=== PATIENT | male | born 1960 | race African-American/Black ===

== ENCOUNTER 2022-12-20 17:25 | Inpatient (IN) | payer OTHER ==
--- OUTSIDE RECORDS SUMMARY | 2022-12-20 17:40 | XMS REPORT | Clinical Summary ---
:1960 Author Organization [facility] MD [facility] Address [address] [place] [address] Care Team Providers Name Role Phone Unavailable Primary Care Provider Unavailable Allergies No known active allergies Medications Medication Sig Dispensed Refills Start Date End Date Status lisinopril Take 10 mg by 0 Activ e (PRINIVIL,ZESTRIL) 10 mouth every mg tablet morning. Active Problems Problem Noted Date Diagnosed Date Migraine 10/16/2018 Hypertension 10/16/2018 Medical History Medical History Date Comments Hypertension Blind right eye Allergic rhinitis Family History Medical History Relation Name Comments -Unknown cancer Father Relation Name Status Comments Father Social History Tobacco Use Types Packs/Day Years Used Date Smoking Tobacco: Never Assessed Sex and Gender Information Value Date Recorded Sex Assigned at Not on file Gender Identity Not on file Sexual Orientation Not on file Obstetrics History Last Filed Vital Signs Not on file Plan of Treatment Not on file Results Not on fileafter 12/20/2021 Insurance Payer Benefit Plan Subscriber ID Effective Phone Address Typ e / Group Dates [place] [id number] 2018-Pre [phone] [facility] INDIGENT INDIGENT sent [address] [place] [phone] (Work) Pete Medrano Jr. Personal/Family Self 1960 [address] (Home) [place] [address] MarcelaPete . Personal/Family Self 1960 [address]) [place] [address]
--- OUTSIDE RECORDS SUMMARY | 2022-12-20 17:45 | XMS REPORT | Continuity of Care Document ---
:1960 Author Organization [facility] t Address [address] [facility] [address] [place] [address] Care Team Providers Name Role Phone UNKNOWN, REFFERING Primary Care Physician Unavailable VIKTOR SOSA Attending Clinician Unavailable VIKTOR SOSA Attending Clinician Unavailable BETTY WISE Attending Clinician Unavailable EKTA MEYER Attending Clinician Unavailable RAAD GUERRIER Attending Clinician Unavailable Raad Guerrier MD Attending Clinician WILVER GRIER Attending Clinician Unavailable Tin Ruiz MD Attending Clinician SUPRIYA NOGUERA Attending Clinician Unavailable OANH CONTRERAS Attending Clinician Unavailable VANESA ABRAMS Attending Clinician Unavailable FLOYD EPPERSON Attending Clinician Unavailable CHIP RAPHAEL Attending Clinician Unavailable SARAH LEONARD Attending Clinician Unavailable LAB90 Attending Clinician Unavailable 39, HOLTER Attending Clinician Unavailable LESLY TAVERAS Attending Clinician Unavailable ROXIE REESE Attending Clinician Unavailable RADIOLOGY Attending Clinician Unavailable Elliott Solomon MD Attending Clinician Henrique JOHNSON, Bruna La Attending Clinician Unavailable CASTRO ANTONIO Attending Clinician Unavailable Jose Henderson S Attending Clinician Castro Antonio MD Attending Clinician MARCEL BLANCO Attending Clinician Unavailable [place] Aponte Attending Clinician Doctor Unassigned, [place] Attending Clinician Unavailable 2, Adc Lab Attending Clinician Unavailable ELLIOTT SOLOMON Attending Clinician Unavailable GEORGES BOYKIN Attending Clinician Unavailable Team, [facility] Attending Clinician UnavailJEAN Shah Attending Clinician Unavailable TIN RUIZ Attending Clinician Unavailable JOSE MESSER Attending Clinician Unavailable Viktor Sosa MD Attending Clinician Gorge JOHNSON, Lucius Bah Attending Clinician Unavailable Only, [facility] Test Attending Clinician Unavailable Fab Leon MD Attending Clinician Lab, Ang - Db Attending Clinician Unavailable ANGEL BARNES Attending Clinician Unavailable Angel Barnes DO Attending Clinician ADRIANO BARTON Attending Clinician Unavailable Adriano Barton MD Attending Clinician Care, Igor Primary Attending Clinician Unavailable BOSTON PENNINGTON Attending Clinician Unavailable WILMAN WALKER Attending Clinician Unavailable Gely Tamez DO Attending Clinician Raine Manning RN Attending Clinician Unavailable FRANKIE JENNINGS Attending Clinician Unavailable FRANKIE JENNINGS Attending Clinician Unavailable Frankie Jennings MD Attending Clinician KIARA PAYNE Attending Clinician Unavailable JOSE MURRY Attending Clinician Unavailable GERDA DESIR Attending Clinician Danielle Edson Iqbal MD Attending Clinician Gerda Desir MD Attending Clinician Arnulfo Cline Attending Clinician [phone] Margaux Sawyer MD Attending Clinician Paulino Alanis Attending Clinician RADHA MILLER M.D., Gray GARCIA Attending Clinician Unavailable VIKTOR SOSA Admitting Clinician Unavailable CASTRO ANTONIO Admitting Clinician Unavailable Castro Antonio MD Admitting Clinician JOSE MESSER Admitting Clinician Unavailable Viktor Sosa MD Admitting Clinician ANGEL BARNES Admitting Clinician Unavailable FRANKIE JENNINGS Admitting Clinician Unavailable ARNULFO BRENNER Admitting Clinician Unavailable Arnulfo Cline Admitting Clinician [phone] Margaux Sawyer MD Admitting Clinician RADHA MILLER M.D., RADHA Admitting Clinician Unavail able Payers Payer Name Policy Type Policy Number Effective Date Expiration Date S artur [employer] [id number] 2020 00:00:00 [employer] PRIMARY [id number] 2020 CARE 00:00:00 MEDICAID SSI PENDING 2019 PENDING 00:00:00 AETNA MP CVS 9 [id number] 2022 SILVER: HMO DENTAL SPECIALIST 94 00:00:00 ON STAND [employer]ET[employer] COMMERCIAL [id number] 2022 OUT OF NETWORK 00:00:00 Problems Condition Condition Condition Status Onset Resolution Last Treating Co mments Source Name Details Category Date Date Treatment Clinician Date Well adult Well adult Disease Active 2022-02 K elsey exam exam 0-09 Seybold 00:00: - 00 Externa l Elevated Elevated Disease Active 2022-02 Kelse y PSA PSA 0-09 Seybold 00:00: - 00 Externa l BPH BPH Disease Active Suzanne (benign (benign 9-11 Seybold prostatic prostatic 00:00: - hyperplasi hyperplasi 00 Ex terna a) a) l Chronic Chronic Disease Active Suzanne back pain back pain 9-11 Seyb old 00:00: - 00 Externa l GERD GERD Disease Active Suzanne (gastroeso (gastroeso 9-11 Se ybold phageal phageal 00:00: - reflux reflux 00 Externa disease) disease) l Family Family Disease Active Suzanne history of history of 9 Se ybold prostate prostate 00:00: - cancer in cancer in 00 Exte rna father father l DJD DJD Disease Active Suzanne (degenerat (degenerat 9-11 Se ybold luca joint luca joint 00:00: - disease), disease), 00 Exte rna lumbar lumbar l DDD DDD Disease Active Suzanne (degenerat (degenerat 9-11 Se ybold luca disc luca disc 00:00: - disease), disease), 00 Exte rna lumbar lumbar l Allergic Allergic Disease Active Kelse y rhinitis rhinitis 10-21 Seybol d 00:00: - 00 Externa l History of History of Disease Active K elsey small small 10-21 Seybold bowel bowel 00:00: - obstructio obstructio 00 Ex terna n n l Erectile Erectile Disease Active Kelse y dysfunctio dysfunctio 10-21 Se ybold n n 00:00: - 00 Externa l History of History of Disease Active Overview : Suzanne kidney kidney 10-21 Formattin Seybold stones stones 00:00: g of this - 00 note Externa might be l different from the original. CT scan 04/29/2022 : Showed 6 mm nonobstru cting right nephrolit hiasis Abdominal Abdominal Disease Active Uni vers pain, pain, 3-02 ity [place] abdominal abdominal Bran ch location location History of History of Disease Active U nivers colon colon 3-02 ity of surgery surgery 00:00: [place] 00 Medical Branch GERD GERD Disease Active Univers (gastroeso (gastroeso 3-02 it y of phageal phageal 00:00: [place] reflux reflux 00 Medical disease) disease) Branch Primary Primary Disease Active Suzanne hypertensi hypertensi 2-28 Se ybold on on 00:00: - 00 Externa l Hyperlipid Hyperlipid Disease Active K elsey emia emia 04-09 Seybold 00:00: - 00 Externa l Hypertensi Hypertensi Disease Active K elsey on on 04-09 Seybold 00:00: - 00 Externa l Kidney Kidney Disease Active [facility] stones stones 10-20 st 00[facility]ospita 00 l Ectatic Ectatic Disease Active Overview: Meth joseluis abdominal abdominal 10-17 Formattin s t aorta aorta 00:00: g of this Hospita 00 note l might be different from the original. 10/17/2021: 2.7cm GERD GERD Disease Active [facility] (gastroeso (gastroeso 10-04 st phageal phageal 00:00: Hospita reflux reflux 00 l disease) disease) Seasonal Seasonal Disease Active Metho di allergies allergies 10-04 st 00:00: Hospita 00 l Colon Colon Disease Active 2020-02 Overview: Method i adenomas adenomas -[address] 00:00: g of this Hospita 00 note l might be different from the original. Formattin g of this note might be different from the original. Added automatic ally from request for surgery [id number] Esophageal Esophageal Disease Active 2020-02 Overview : [facility]i dysphagia dysphagia -10 Formattin s t 00:00: g of this Hospita 00 note l might be different from the original. Formattin g of this note might be different from the original. Added automatic ally from request for surgery [id number] Family Family Disease Active Univers history of history of 5-13 it y of prostate prostate 00:00: [place] cancer in cancer in 00 Medi zuly father father Branch dizziness dizziness Disease Active 2019-02 Uni vers 1-16 ity of 00:00: [place] [facility] Chest pain Chest pain Disease Active 2019-02 U nivers 0-23 ity of 00:00: [place] 00 Medical Branch Nocturia Nocturia Disease Active 2018-02 Unive rs 0-15 ity of 00:00: [place] [facility] Skin tag Skin tag Disease Active 2018-02 Unive rs of of 0-15 ity of perineum perineum 00:00: [place] in male in male 00 Medical Branch Perineal Perineal Disease Active 2018-02 Unive rs irritation irritation 0-15 it y of 00:00: [place] 00 Medical Branch Migraine Migraine Disease Active Unive rs 10-16 ity of 00:00: [place] 00 MD [facility] Hypertensi Hypertensi Disease Active U nivers on on 10-16 ity of 00:00: [place] 00 MD [facility] 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 08-18 eye eye 00:00: Hospita 00 l Seasonal Seasonal Disease Active Unive rs allergies allergies 07-28 ity of 00:00: [place] 00 Medical Branch Hypertensi Hypertensi Disease Active M ethodi on on 07-28 00:00: Hospita 00 l Small Small Disease Active Univers bowel bowel 07-14 ity of obstructio obstructio [place] [facility] Allergies, Adverse Reactions, Alerts Allergy Allergy Status Severity Reaction(s) Onset Inactive Treating Comm ents Source Name Type Date Date Clinician MORPHINE DRUG Active Other-Cmnt Univ ers SULFATE INGREDI 04-12 ity of 00:00: [place] 00 Medical Branch Morphine Propensi Active Other - See headache Univers Sulfate ty to comments 04-12 ity of adverse 00:00: [place] reaction 00 Medical s to Branch drug NO KNOWN Drug Active Univers ALLERGIE Class ity of S [facility] Family History Family Member Diagnosis Comments Start Date Stop Date Source Natural father Cancer [facility] Natural father Diabetes [facility] Natural father -Unknown cancer [facility] MD Stewart Garza r Mcandrews Social History Social Habit Start Date Stop Date Quantity Comments Source Sexual orientation [facility] MD William Cankameron r Mcandrews History of tobacco Cigarette Smoker Suzanne Tovar - use External Gender identity Suzanne borges - External History SDOH Suzanne lombardo - Alcohol Frequency Externa l History SDOH Suzanne lombardo - Alcohol Std Drinks [employer] Worker al History SDOH Suzanne lombardo - Alcohol Binge External Tobacco Comment 2022-09-20 2022-09-20 Smokes1/2 pack a Joel Tovar - 00:00:00 00:00:00 day. External Exposure to 2022-04-01 2022-04-11 Not sure [facility] SARS-CoV-2 (event) 00:00:00 15:50:00 [facility] Alcohol Comment 2022-04-09 2022-04-09 Occasionally - 1 Joel francisco La - 00:00:00 00:00:00 beer per week. External Alcohol intake 2021-10-20 2021-10-20 Current drinker of [facility] 00:00:00 00:00:00 alcohol (finding) Hospita l History of Social 2021-10-20 2021-10-[address] function 00:00:00 00:00:00 Hospital Tobacco use and 2021-10-04 2021-10-04 Smokeless tobacco [facility] exposure 00:00:00 00:00:00 non-user Hospital Cigarettes smoked 2020-06-22 2020-06-22 Univers ity of current (pack per 00:00:00 00:00:00 [facility] [place] ) - Reported [place] Cigarette 2020-06-22 2020-06-22 University of pack-years 00:00:00 00:00:00 [facility] Sex Ass[birth year] At [birth year] Universit y of 00:00:00 00:00:00 [place] MD [facility] Smoking Status Start Date Stop Date Source Smokes tobacco daily 2022-09-20 00:00:00 Suzanne Tovar - External Ex-smoker 2021-10-04 00:00:00 2021-10-04 00:00:00 [facility] Medications Ordered Filled Start Stop Current Ordering Indication Dosage Frequency Signature Comments Components Source Medication Medication Date Date Medication? Clinician (SIG) Name Name chlorproMAZ 2022-02 No 25mg 25 mg, Uni vers INE 1- 11-10 Oral, ONCE ity of (THORAZINE) 09:15: 08:38 NOW, 1 Joaquin as tablet 25 00 :00 dose, On Medica l mg [facility] 12/20/22 at 0315, ONUR maalox:diph 2022-02 No 15mL 15 mL, Uni vers enhydrAMINE - 11-10 Oral, ity of :lidocaine 07:11: 07:13 ONCE, 1 Joaquin as 2 % viscous 00 :00 dose, On Medi zuly 1:1:1 Fri Branch (FIRST-MOUT 12/20/22 [facility]) at 0115, oral ONUR suspension 15 mL omeprazole 2022-02- No 20mg Take 1 Univ ers 20 mg 1-10 11-10 capsule by ity of capsule 02:55: 00:00 mouth in [place] 48 :00 the Medical morning. Branch pantoprazol 2022-02 Yes [id number] 40mg Take 1 Univers e 1-10 tablet by ity of (PROTONIX) 00:00: mouth in [facility] as 40 mg EC 00 the Medical tablet morning. Branch ondansetron 2022-02 Yes [id number] 4mg Take 1 Univers (ZOFRAN) 4 1-10 tablet by ity of mg tablet 00:00: mouth [place] 00 every 8 Medical (eight) Branch hours as needed for Nausea and Vomiting (N/V). Tadalafil 2022-02- Yes [id number] 5mg QD Take 1 Suzanne (Cialis) 5 0-25 04-23 tablet (5 Sey bold MG oral 00:00: 04:59 mg total) - Tablet 00 :00 by mouth Externa daily as l needed for erectile dysfunctio n. Rosuvastati 2022-02 Yes 20mg TAKE 1 Lauren ey n Calcium 0-24 TABLET BY Seybo ld 20 MG oral 00:00: MOUTH - Tablet 00 EVERY DAY Externa l Rosuvastati 2022-02 Yes [id number] 20mg Take 1 Suzanne n Calcium 0-20 tablet (20 Seyb old (Crestor) 00:00: mg total) - 20 MG oral 00 by mouth Exter na Tablet nightly. l Loratadine 2022-02 Yes [id number] 10mg Take 1 K elsey (CLARITIN) 0-20 tablet (10 Sey bold 10 MG oral 00:00: mg total) - tablet 00 by mouth Externa daily. l Acetaminoph 2022-02- Yes [id number] 650mg Q.[id number] Take 1 Suzanne en (Tylenol 0-17 11-17 [id number] tablet Seybold 8 Hour) 650 00:00: 05:59 3D (650 mg - MG oral Tab 00 :00 total) by Ext chinyere CR mouth l every 8 hours as needed for pain. Acetaminoph 2022-02- Yes [id number] 650mg Q.[id number] Take 1 Suzanne en (Tylenol 0-17 11-17 [id number] tablet Seybold 8 Hour) 650 00:00: 05:59 3D (650 mg - MG oral Tab 00 :00 total) by Ext chinyere CR mouth l every 8 hours as needed for pain. Promethazin Yes [id number] 5mL Q.25D Take 5 mL Suzanne e-DM 9-20 by mouth 4 Seybold 6.25-15 00:00: times - MG/5ML oral 00 daily as Exte rna Syrup needed for l cough. Guaifenesin Yes [id number] 1200mg Take 2 Suzanne (Mucinex) 9-20 tablets Seybold 600 MG oral 00:00: (1,200 mg - Tablet 12 00 total) by Exter na Hour mouth 2 l Sustained times Release daily. Promethazin Yes [id number] 5mL Q.25D Take 5 mL Suzanne e-DM 9-20 by mouth 4 Seybold 6.25-15 00:00: times - MG/5ML oral 00 daily as Exte rna Syrup needed for l cough. Guaifenesin Yes [id number] 1200mg Take 2 Suzanne (Mucinex) 9-20 tablets Seybold 600 MG oral 00:00: (1,200 mg - Tablet 12 00 total) by Exter na Hour mouth 2 l Sustained times Release daily. Promethazin Yes [id number] 5mL Q.25D Take 5 mL Suzanne e-DM 9-20 by mouth 4 Seybold 6.25-15 00:00: times - MG/5ML oral 00 daily as Exte rna Syrup needed for l cough. Guaifenesin Yes [id number] 1200mg Take 2 Suzanne (Mucinex) 9-20 tablets Seybold 600 MG oral 00:00: (1,200 mg - Tablet 12 00 total) by Exter na Hour mouth 2 l Sustained times Release daily. Promethazin Yes [id number] 5mL Q.25D Take 5 mL Suzanne e-DM 9-20 by mouth 4 Seybold 6.25-15 00:00: times - MG/5ML oral 00 daily as Exte rna Syrup needed for l cough. Guaifenesin 2022-0 Yes [id number] 1200mg Take 2 Suzanne (Mucinex) 9-20 tablets Seybold 600 MG oral 00:00: (1,200 mg - Tablet 12 00 total) by Exter na Hour mouth 2 l Sustained times Release daily. Azithromyci 2022-0 2022- No [id number] Take 2 Suzanne n 250 MG 9-20 - tablets by Seyb old oral Tablet 00:00: 00:00 mouth on - 00 :00 day 1 then Externa 1 tablet l by mouth daily for 4 days thereafter .. Azithromyci 2022-0 2022- Yes [id number] Take 2 Suzanne n 250 MG 9-20 - tablets by Seyb old oral Tablet 00:00: 04:59 mouth on 00 :00 day 1 then Externa 1 tablet l by mouth daily for 4 days thereafter .. Azithromyci 2022-0 2022- Yes [id number] Take 2 Suzanne n 250 MG 9-20 - tablets by Seyb old oral Tablet 00:00: 04:59 mouth on - 00 : day 1 then Externa 1 tablet l by mouth daily for 4 days thereafter .. Omeprazole 2022-0 2022- No 20mg Take 1 Lauren ey 20 MG oral -12 19- capsule Seybo ld Delayed 14:21: 00:00 (20 mg - Release 21 :00 total) by Externa Capsule mouth l daily. HYDROcodone 2022-0 Yes [id number] 1{tbl} QD Take 1 Suzanne -Acetaminop 9-11 tablet by Vkias xiao hen 10-325 00:00: mouth - MG oral 00 daily as Externa Tablet needed. l HYDROcodone 2022-0 Yes [id number] 1{tbl} QD Take 1 Suzanne -Acetaminop 9-11 tablet by Vikas xiao hen 10-325 00:00: mouth - MG oral 00 daily as Externa Tablet needed. l HYDROcodone 2022-0 Yes [id number] 1{tbl} QD Take 1 Suzanne -Acetaminop 9-11 tablet by Vikas xiao hen 10-325 00:00: mouth - MG oral 00 daily as Externa Tablet needed. l HYDROcodone 2022-0 Yes [id number] 1{tbl} QD Take 1 Suzanne -Acetaminop 9-11 tablet by Vikas xiao hen 10-325 00:00: mouth - MG oral 00 daily as Externa Tablet needed. l HYDROcodone 2023-0 Yes [id number] 1{tbl} QD Take 1 Suzanne -Acetaminop 9-11 tablet by Vikas xiao hen 10-325 00:00: mouth - MG oral 00 daily as Externa Tablet needed. l HYDROcodone 2023-0 Yes [id number] 1{tbl} QD Take 1 Suzanne -Acetaminop 9-11 tablet by Vikas xiao hen 10-325 00:00: mouth - MG oral 00 daily as Externa Tablet needed. l Amlodipine 2023-0 Yes 5mg Take 1 Kelse y Besylate 8-19 tablet (5 Seybol d (NORVASC) 5 00:00: mg total) - MG oral 00 by mouth Externa Tablet daily. l Amlodipine 2023-0 Yes 5mg Take 1 Kelse y Besylate 8-19 tablet (5 Seybol d (NORVASC) 5 00:00: mg total) - MG oral 00 by mouth Externa Tablet daily. l Amlodipine 2023-0 Yes 5mg Take 1 Kelse y Besylate 8-19 tablet (5 Seybol d (NORVASC) 5 00:00: mg total) - MG oral 00 by mouth Externa Tablet daily. l Amlodipine 2023-0 Yes 5mg Take 1 Kelse y Besylate 8-19 tablet (5 Seybol d (NORVASC) 5 00:00: mg total) - MG oral 00 by mouth Externa Tablet daily. l Amlodipine 2023-0 Yes 5mg Take 1 Kelse y Besylate 8-19 tablet (5 Seybol d (NORVASC) 5 00:00: mg total) - MG oral 00 by mouth Externa Tablet daily. l Amlodipine 2023-0 Yes 5mg Take 1 Kelse y Besylate 8-19 tablet (5 Seybol d (NORVASC) 5 00:00: mg total) - MG oral 00 by mouth Externa Tablet daily. l Tadalafil 2023-0 Yes 20mg Take 1 Suzanne 20 MG oral 8-11 tablet (20 Sey bold Tablet 00:00: mg total) - 00 by mouth Externa as needed l Rosuvastati 2023-0 Yes 20mg Take 1 Lauren ey n Calcium 8-11 tablet (20 Seyb old (Crestor) 00:00: mg total) - 20 MG oral 00 by mouth Exter na Tablet daily l BuPROPion 3-0 Yes 150mg Take 1 Kelse y HCl, 8-11 tablet Seybold Smoking 00:00: (150 mg - Deter, 150 00 total) by Exte rna MG oral mouth 2 l Tablet 12 times Hour daily Sustained Release Aspirin 81 3-0 Yes 81mg Take 1 Kelse y MG oral 8-11 tablet (81 Seybol d Tablet 00:00: mg total) - Delayed 00 by mouth Externa Response daily l Pantoprazol 3-0 Yes [id number] 20mg Take 1 Suzanne e Sodium 20 8-11 tablet (20 Se ybold MG oral 00:00: mg total) - Tablet 00 by mouth Externa Delayed daily l Response Gabapentin 3-0 Yes 300mg Take 1 Lauren ey 300 MG oral 8-11 capsule Seybo ld Capsule 00:00: (300 mg - 00 total) by Externa mouth l daily Tadalafil 3-0 Yes 20mg Take 1 Suzanne 20 MG oral 8-11 tablet (20 Sey bold Tablet 00:00: mg total) - 00 by mouth Externa as needed l Rosuvastati 3-0 Yes 20mg Take 1 Lauren ey n Calcium 8-11 tablet (20 Seyb old (Crestor) 00:00: mg total) - 20 MG oral 00 by mouth Exter na Tablet daily l BuPROPion 3-0 Yes 150mg Take 1 Kelse y HCl, 8-11 tablet Seybold Smoking 00:00: (150 mg - Deter, 150 00 total) by Exte rna MG oral mouth 2 l Tablet 12 times Hour daily Sustained Release Aspirin 81 3-0 Yes 81mg Take 1 Kelse y MG oral 8-11 tablet (81 Seybol d Tablet 00:00: mg total) - Delayed 00 by mouth Externa Response daily l Pantoprazol 2023-0 Yes [id number] 20mg Take 1 Suzanne e Sodium 20 8-11 tablet (20 Se ybold MG oral 00:00: mg total) - Tablet 00 by mouth Externa Delayed daily l Response Gabapentin 3-0 Yes 300mg Take 1 Lauren ey 300 MG oral 8-11 capsule Seybo ld Capsule 00:00: (300 mg - 00 total) by Externa mouth l daily Tadalafil 2023-0 Yes 20mg Take 1 Suzanne 20 MG oral 8-11 tablet (20 Sey bold Tablet 00:00: mg total) - 00 by mouth Externa as needed l Rosuvastati 2023-0 Yes 20mg Take 1 Lauren ey n Calcium 8-11 tablet (20 Seyb old (Crestor) 00:00: mg total) - 20 MG oral 00 by mouth Exter na Tablet daily l BuPROPion 2023-0 Yes 150mg Take 1 Kelse y HCl, 8-11 tablet Seybold Smoking 00:00: (150 mg - Deter, 150 00 total) by Exte rna MG oral mouth 2 l Tablet 12 times Hour daily Sustained Release Aspirin 81 3-0 Yes 81mg Take 1 Kelse y MG oral 8-11 tablet (81 Seybol d Tablet 00:00: mg total) - Delayed 00 by mouth Externa Response daily l Pantoprazol 2023-0 Yes [id number] 20mg Take 1 Suzanne e Sodium 20 8-11 tablet (20 Se ybold MG oral 00:00: mg total) - Tablet 00 by mouth Externa Delayed daily l Response Gabapentin 3-0 Yes 300mg Take 1 Lauren ey 300 MG oral 8-11 capsule Seybo ld Capsule 00:00: (300 mg - 00 total) by Externa mouth l daily Tadalafil 2023-0 Yes 20mg Take 1 Suzanne 20 MG oral 8-11 tablet (20 Sey bold Tablet 00:00: mg total) - 00 by mouth Externa as needed l Rosuvastati 2023-0 Yes 20mg Take 1 Lauren ey n Calcium 8-11 tablet (20 Seyb old (Crestor) 00:00: mg total) - 20 MG oral 00 by mouth Exter na Tablet daily l BuPROPion 2023-0 Yes 150mg Take 1 Kelse y HCl, 8-11 tablet Seybold Smoking 00:00: (150 mg - Deter, 150 00 total) by Exte rna MG oral mouth 2 l Tablet 12 times Hour daily Sustained Release Aspirin 81 2023-0 Yes 81mg Take 1 Kelse y MG oral 8-11 tablet (81 Seybol d Tablet 00:00: mg total) - Delayed 00 by mouth Externa Response daily l Pantoprazol 2022-0 Yes [id number] 20mg Take 1 Suzanne e Sodium 20 8-11 tablet (20 Se ybold MG oral 00:00: mg total) - Tablet 00 by mouth Externa Delayed daily l Response Gabapentin 2022-0 Yes 300mg Take 1 Lauren ey 300 MG oral 8-11 capsule Seybo ld Capsule 00:00: (300 mg - 00 total) by Externa mouth l daily Tadalafil 2022-0 Yes 20mg Take 1 Suzanne 20 MG oral 8-11 tablet (20 Sey bold Tablet 00:00: mg total) - 00 by mouth Externa as needed l Aspirin 81 2022-0 Yes 81mg Take 1 Kelse y MG oral 8-11 tablet (81 Seybol d Tablet 00:00: mg total) - Delayed 00 by mouth Externa Response daily l Pantoprazol 2022-0 Yes [id number] 20mg Take 1 Suzanne e Sodium 20 8-11 tablet (20 Se ybold MG oral 00:00: mg total) - Tablet 00 by mouth Externa Delayed daily l Response Gabapentin 2022-0 Yes 300mg Take 1 Lauren ey 300 MG oral 8-11 capsule Seybo ld Capsule 00:00: (300 mg - 00 total) by Externa mouth l daily Rosuvastati 2022-0 Yes 20mg Take 1 Lauren ey n Calcium 8-11 tablet (20 Seyb old (Crestor) 00:00: mg total) - 20 MG oral 00 by mouth Exter na Tablet daily l BuPROPion 2022-0 Yes 150mg Take 1 Kelse y HCl, 8-11 tablet Seybold Smoking 00:00: (150 mg - Deter, 150 00 total) by Exte rna MG oral mouth 2 l Tablet 12 times Hour daily Sustained Release Aspirin 81 2022-0 Yes 81mg Take 1 Kelse y MG oral 8-11 tablet (81 Seybol d Tablet 00:00: mg total) - Delayed 00 by mouth Externa Response daily l Pantoprazol 2022-0 Yes [id number] 20mg Take 1 Suzanne e Sodium 20 8-11 tablet (20 Se ybold MG oral 00:00: mg total) - Tablet 00 by mouth Externa Delayed daily l Response Gabapentin 2022-0 Yes 300mg Take 1 Lauren ey 300 MG oral 8-11 capsule Seybo ld Capsule 00:00: (300 mg - 00 total) by Externa mouth l daily Tadalafil 3-0 3- No 20mg Take 1 Kelse y 20 MG oral 09-20 10-25 tablet (20 Se ybold Tablet 00:00: 00:00 mg total) - 00 :00 by mouth Externa as needed l BUPROPION 3-0 2023- No 150mg Take 1 Lauren ey HCL SR 150 09-20 tablet Seybol d MG OR TB12 00:00: 00:00 (150 mg - 00 :00 total) by Externa mouth 2 l times daily. Cyclobenzap 2023-0 Yes 10mg Take 1 Lauren ey rine HCl 10 7-21 tablet (10 Se ybold MG oral 00:00: mg total) - Tablet 00 by mouth 2 Externa times l daily. diazePAM 5 3-0 Yes 5mg Take 1 Kelse y MG oral 7-21 tablet (5 Seybold Tablet 00:00: mg total) - 00 by mouth Externa as needed. l Cyclobenzap 2023-0 Yes 10mg Take 1 Lauren ey rine HCl 10 7-21 tablet (10 Se ybold MG oral 00:00: mg total) - Tablet 00 by mouth 2 Externa times l daily. diazePAM 5 3-0 Yes 5mg Take 1 Kelse y MG oral 7-21 tablet (5 Seybold Tablet 00:00: mg total) - 00 by mouth Externa as needed. l Cyclobenzap 2023-0 Yes 10mg Take 1 Lauren ey rine HCl 10 7-21 tablet (10 Se ybold MG oral 00:00: mg total) - Tablet 00 by mouth 2 Externa times l daily. diazePAM 5 3-0 Yes 5mg Take 1 Kelse y MG oral 7-21 tablet (5 Seybold Tablet 00:00: mg total) - 00 by mouth Externa as needed. l Cyclobenzap 2023-0 Yes 10mg Take 1 Lauren ey rine HCl 10 7-21 tablet (10 Se ybold MG oral 00:00: mg total) - Tablet 00 by mouth 2 Externa times l daily. diazePAM 5 2023-0 Yes 5mg Take 1 Kelse y MG oral 7-21 tablet (5 Seybold Tablet 00:00: mg total) - 00 by mouth Externa as needed. l Cyclobenzap 2023-0 Yes 10mg Take 1 Lauren ey rine HCl 10 7-21 tablet (10 Se ybold MG oral 00:00: mg total) - Tablet 00 by mouth 2 Externa times l daily. diazePAM 5 3-0 Yes 5mg Take 1 Kelse y MG oral 7-21 tablet (5 Seybold Tablet 00:00: mg total) - 00 by mouth Externa as needed. l Cyclobenzap 2023-0 Yes 10mg Take 1 Lauren ey rine HCl 10 7-21 tablet (10 Se ybold MG oral 00:00: mg total) - Tablet 00 by mouth 2 Externa times l daily. diazePAM 5 3-0 Yes 5mg Take 1 Kelse y MG oral 7-21 tablet (5 Seybold Tablet 00:00: mg total) - 00 by mouth Externa as needed. l Ibuprofen 3-0 2023- No 600mg Take 1 Lauren ey (MOTRIN) 5-24 09-11 tablet Seybold 600 MG oral 00:00: 00:00 (600 mg - Tablet 00 :00 total) by Externa mouth l daily. tadalafiL 2023-0 Yes [id number] 20mg Take 1 U nivers (CIALIS) 20 4-11 tablet by [place] mg tablet 00:00: [place] 00 needed for Medical Erectile Branch dysfunctio n (2-3 times/weel , 2 hrs prior to sexual activity). tadalafiL 2023-0 Yes [id number] 20mg Take 1 U nivers (CIALIS) 20 4-11 tablet by [place] of mg tablet 00:00: mouth [place] 00 needed for Medical Erectile Branch dysfunctio n (2-3 times/weel , 2 hrs prior to sexual activity). tadalafiL 2023-0 Yes [id number] 20mg Take 1 U nivers (CIALIS) 20 4-11 tablet by [place] of mg tablet 00:00: mouth [place] 00 needed for Medical Erectile Branch dysfunctio n (2-3 times/weel , 2 hrs prior to sexual activity). tadalafiL 2023-0 Yes [id number] 20mg Take 1 U nivers (CIALIS) 20 4-11 tablet by [place] of mg tablet 00:00: mouth [place] 00 needed for Medical Erectile Branch dysfunctio n (2-3 times/weel , 2 hrs prior to sexual activity). omeprazole 2023-0 Yes 20mg Take 1 Unive rs 20 mg 3-05 capsule by ity of capsule 19:38: mouth in [place] [address] the Medical morning. Branch omeprazole 2023-0 Yes 20mg Take 1 Unive rs 20 mg 3-05 capsule by ity of capsule 19:38: mouth in [place] [address] the Medical morning. Branch omeprazole 2023-0 Yes 20mg Take 1 Unive rs 20 mg 3-05 capsule by ity of capsule 19:38: mouth in [place] [address] the Medical morning. Branch omeprazole 2023-0 Yes 20mg Take 1 Unive rs 20 mg 3-05 capsule by ity of capsule 19:38: mouth in [place] [address] the Medical morning. Branch omeprazole 2023-0 Yes 20mg Take 1 Unive rs 20 mg 3-05 capsule by ity of capsule 19:38: mouth in [place] [address] the Medical morning. Branch omeprazole 2023-0 Yes 20mg Take 1 Unive rs 20 mg 3-05 capsule by ity of capsule 19:38: mouth in [place] [address] the Medical morning. Branch omeprazole 2023-0 Yes 20mg Take 1 Unive rs 20 mg 3-05 capsule by ity of capsule 19:38: mouth in [place] [address] the Medical morning. Branch losartan 2022-0 Yes 50mg 50 mg, Univers (COZAAR) 04-14 Oral, ity of tablet 50 15:00: DAILY, [place] mg 00 First dose Medical on Sun Branch 04/14/22 at 0900, Until Discontinu ed, Routine traZODone 2022-2022- No 25mg 25 mg, Unive rs (DESYREL) 04-14 Oral, ity of tablet 25 03:45: 03:38 ONCE, 1 [place] mg 00 :00 dose, On Medical 04/13/22 Branch at 2145, Routine magnesium 2022-0 2022- No 2g 2 g, IV Univ ers sulfate in 04-13 Piggyback, it y of water 2 23:00: 00:12 Administer Joaquin as gram/50 mL 00 :00 over 60 Medica l (4 %) Minutes, Branch infusion 2 ONCE, 1 g dose, On 04/13/22 at 1700, Routine hydralAZINE 0 Yes 10mg 10 mg, Univ ers (APRESOLINE 3-04 Slow IV ity o f ) injection 22:01: Push, [place] 10 mg 09 Q4HPRN, Medical Starting Branch on 04/13/22 at 1601, Until Discontinu ed, Routine, DBP=>10 0; SBP=>160 maalox:diph 0 Yes 15mL 15 mL, Univ ers enhydrAMINE -04 Oral ity of :lidocaine 17:39: ([place] 2 % viscous 27 Spit Out), Me dical 1:1:1 BIDPRN, Branch (FIRST-MOUT Starting HWASH BLM) on Sat oral 04/13/22 at suspension 1139, 15 mL Until Discontinu ed, Routine, Oral mucositis diatrizoate 0 2022- No [id number] 200mL 200 mL, Univers stone-diatriz 04 03-04 Oral, ity of oat sod 17:00: 17:00 ONCE, 1 [place] (GASTROGRAF 00 :00 dose, On Medi zuly IN) 66-10 % Sat 04/13/22 Br anch oral at 1100, solution Routine 200 mL D5W 0.9% 0 Yes 1000mL at 100 Unive rs NaCl (NS) 3-04 mL/hr, ity of IV infusion 16:15: 1,000 mL, [place] 1,000 mL 00 IV Medical Infusion, Branch CONTINUOUS , Starting on 04/13/22 at 1015, Until Discontinu ed, Routine acetaminoph 0 Yes 650mg 650 mg, Un jenny en 3-04 Oral, ity of (TYLENOL) 16:14: Q6HPRN, [place] tablet 650 45 Starting Medic al mg on Sat Branch 04/13/22 at 1014, Until Discontinu ed, Routine, Pain (scale 1-3) ondansetron 2022-0 Yes 4mg 4 mg, Slow Univers (ZOFRAN 3-03 IV Push, ity of (PF)) 23:07: Q6HPRN, [place] injection 4 19 Starting Medi zuly mg on Fri Branch 04/12/22 at 1707, Until Discontinu ed, ONUR, Nausea and Vomiting (N/V) triamcinolo Yes Topical, Un jenny ne 3-03 BID, First ity of acetonide 14:00: dose on [place] (TRIDERM) 00 Fri04/12/22 Medi zuly 0.1 % cream at 0800, Bran ch Until Discontinu ed, Routine pantoprazol Yes 40mg 40 mg, Univ ers e 3-03 Slow IV ity of (PROTONIX) 05:30: Push, [place] injection 00 Q24H, Medical 40 mg First dose Branch on Fri04/11/22 at 2330, Until Discontinu ed HYDROmorpho 2022- No 1mg 1 mg, Slow Univers ne 04-12 03-04 IV Push, ity of (DILAUDID) 04:34: 16:15 Q4HPRN, [place] as injection 1 09 :07 Starting Medi zuly mg on [place] Branch 04/11/22 at 2234, Until 04/13/22 at 1015, Routine, Pain (scale 7-10)
U se approved by (Faculty): ADC PROVIDER heparin Yes 5000U 5,000 Univers (porcine) 3-03 Units, ity of injection 04:00: [place] 5,000 Units 00 us, Q8H, Medi zuly First dose Branch on Fri04/11/22 at 2200, Until Discontinu ed, Routine lactated 2022- No 1000mL at [address] [facility] ers ringers IV 04-12 03-04 mL/hr, ity of infusion 03:30: 15:04 1,000 mL, [place] as 1,000 mL 00 :51 IV Medical Infusion, Branch CONTINUOUS , Starting on Fri04/11/22 at 2130, Until 04/13/22 at 0904, Routine phenoL Yes 1{spray 1 [place], Univ ers (SORE 03 } Oral, PRN, ity of THROAT 03:08: Starting [place] (PHENOL)) 01 on [place] Medical 1.4 % spray 04/11/22 at [facility] bottle 1 2108, [place] Until Discontinu ed, Routine, Sore throat NaCl 0.9% 2022- No 1000mL at 999 Uni vers (NS) bolus 04-12 03-03 mL/hr, ity of infusion 01:15: 01:46 1,000 mL, [place] as 1,000 mL 00 :00 IV Medical Infusion, Branch ONCE, 1 dose, On [place] 04/11/22 at 1915, STAT simethicone 2022- No 80mg 80 mg, Uni vers (GAS RELIEF 04-12 Oral, ity of (SIMETHICON 00:30: 23:45 ONCE, 1 [place] 00 :00 dose, On Medical chewable [place] 04/11/22 Branc h tablet 80 at 1830, mg Routine morpHINE (4 2022- No 4mg 4 mg, Slow Univers mg/mL) 04-12 IV Push, ity of injection 4 00:15: 00:29 ONCE, 1 [place] mg 00 :00 dose, On Medical [facility] 04/11/22 Branch at 1815, STAT iopamidol 2022- No [id number] 100mL 100 mL, Univers (ISOVUE 04-12 Intravenou ity o f 370-500 mL) 00:15: 00:15 s, ONCE, 1 [place] injection 00 :00 dose, On Medica l 100 mL [facility] 04/11/22 Branch at 1815, Routine ondansetron 2022- No 4mg 4 mg, Slow Univers (ZOFRAN 04-11 IV Push, ity of (PF)) 23:45: 23:45 ONCE, 1 [place] injection 4 00 :00 dose, On Medi zuly mg [facility] 04/11/22 Branch at 1745, ONUR Loratadine 2022- No [id number] 10mg Take 10 mg Suzanne (CLARITIN) 2-28 - by mouth Seyb old 10 MG oral 13:56: 00:00 daily - tablet 23 :00 Externa l Loratadine 2022-0 Yes [id number] 10mg Take 1 K elsey (CLARITIN) 2-28 tablet (10 Sey bold 10 MG oral 00:00: mg total) - tablet 00 by mouth Externa daily l Loratadine 2022-0 Yes [id number] 10mg Take 1 K elsey (CLARITIN) 2-28 tablet (10 Sey bold 10 MG oral 00:00: mg total) - tablet 00 by mouth Externa daily l Loratadine 3-0 Yes [id number] 10mg Take 1 K elsey (CLARITIN) 2-28 tablet (10 Sey bold 10 MG oral 00:00: mg total) - tablet 00 by mouth Externa daily l Loratadine 3-0 Yes [id number] 10mg Take 1 K elsey (CLARITIN) 2-28 tablet (10 Sey bold 10 MG oral 00:00: mg total) - tablet 00 by mouth Externa daily l Pantoprazol 3-0 Yes [id number] 20mg Take 1 Suzanne e Sodium 20 2-28 tablet (20 Se ybold MG oral 00:00: mg total) - Tablet 00 by mouth Externa Delayed daily l Response Loratadine 2022-0 Yes [id number] 10mg Take 1 K elsey (CLARITIN) 2-28 tablet (10 Sey bold 10 MG oral 00:00: mg total) - tablet 00 by mouth Externa daily l Loratadine 2022-0 Yes [id number] 10mg Take 1 K elsey (CLARITIN) 2-28 tablet (10 Sey bold 10 MG oral 00:00: mg total) - tablet 00 by mouth Externa daily l Gabapentin 3-0 Yes 300mg Take 300 Ke lsey 300 MG oral 2-23 mg by Seybold Capsule 00:00: mouth - 00 daily Externa l Amlodipine 3-0 Yes 5mg Take 5 mg [place] Besylate 2-23 by mouth Seybold (NORVASC) 5 00:00: daily - MG oral 00 Externa Tablet l Atorvastati 2022-0 Yes 20mg Take 20 mg Suzanne n Calcium 2-23 by mouth Seybol d 20 MG oral 00:00: nightly - Tablet 00 Externa l Losartan 3-0 Yes 100mg Take 1 Suzanne Potassium 2-17 tablet Seybold (COZAAR) 00:00: (100 mg - 100 MG oral 00 total) by Ext chinyere Tablet mouth l daily. Losartan 3-0 Yes 100mg Take 1 Suzanne Potassium 2-17 tablet Seybold (COZAAR) 00:00: (100 mg - 100 MG oral 00 total) by Ext chinyere Tablet mouth l daily. Losartan 2023-0 Yes 100mg Take 1 Suzanne Potassium 2-17 tablet Seybold (COZAAR) 00:00: (100 mg - 100 MG oral 00 total) by Ext chinyere Tablet mouth l daily. Losartan 2023-0 Yes 100mg Take 100 Lauren ey Potassium 2-17 mg by Seybold (COZAAR) 00:00: mouth - 100 MG oral 00 daily Externa Tablet l Losartan 2023-0 Yes 100mg Take 1 Suzanne Potassium 2-17 tablet Seybold (COZAAR) 00:00: (100 mg - 100 MG oral 00 total) by Ext chinyere Tablet mouth l daily. Losartan 2023-0 Yes 100mg Take 1 Suzanne Potassium 2-17 tablet Seybold (COZAAR) 00:00: (100 mg - 100 MG oral 00 total) by Ext chinyere Tablet mouth l daily. Losartan 2023-0 Yes 100mg Take 1 Suzanne Potassium 2-17 tablet Seybold (COZAAR) 00:00: (100 mg - 100 MG oral 00 total) by Ext chinyere Tablet mouth l daily. tadalafiL 2023-0 Yes [id number] 20mg Take 1 U nivers (CIALIS) 20 2-15 tablet by ity of mg tablet 00:00: [place] 00 needed for Medical Erectile Branch dysfunctio n (2-3 times/weel , 2 hrs prior to sexual activity). tadalafiL 2023-0 Yes [id number] 20mg Take 1 U nivers (CIALIS) 20 2-15 tablet by ity of mg tablet 00:00: mouth [place] 00 needed for Medical Erectile Branch dysfunctio n (2-3 times/weel , 2 hrs prior to sexual activity). tadalafiL 2023-0 Yes [id number] 20mg Take 1 U nivers (CIALIS) 20 2-15 tablet by ity of mg tablet 00:00: mouth [place] 00 needed for Medical Erectile Branch dysfunctio n (2-3 times/weel , 2 hrs prior to sexual activity). tadalafiL 2023-0 Yes [id number] 20mg Take 1 U nivers (CIALIS) 20 2-15 tablet by ity of mg tablet 00:00: mouth [place] 00 needed for Medical Erectile Branch dysfunctio n (2-3 times/weel , 2 hrs prior to sexual activity). tadalafiL Yes [id number] 20mg Take 1 U nivers (CIALIS) 20 2-15 tablet by ity of mg tablet 00:00: mouth as [place] 00 needed for Medical Erectile Branch dysfunctio n (2-3 times/weel , 2 hrs prior to sexual activity). tadalafiL Yes [id number] 20mg Take 1 U nivers (CIALIS) 20 2-15 tablet by ity of mg tablet 00:00: mouth as [place] 00 needed for Medical Erectile Branch dysfunctio n (2-3 times/weel , 2 hrs prior to sexual activity). tadalafiL 2022- No [id number] 20mg Take 1 Univers (CIALIS) 20 2-15 04-11 tablet by it y of mg tablet 00:00: 00:00 mouth as [place] as 00 :00 needed for Medical Erectile Branch dysfunctio n (2-3 times/weel , 2 hrs prior to sexual activity). HYDROcodone Yes 1{tbl} Take 1 Ke lsey -Acetaminop 2-14 tablet by Sey bold hen 10-325 00:00: mouth as - MG oral 00 needed Externa Tablet l HYDROcodone 2022- No 1{tbl} Take 1 K elsey -Acetaminop 2-14 09-11 tablet by Se ybold hen 10-325 00:00: 00:00 mouth as - MG oral 00 :00 needed. Externa Tablet l tadalafiL 2021-02 Yes [id number] 20mg Take 1 U nivers (CIALIS) 20 0-20 tablet by ity of mg tablet 00:00: mouth [place] 00 needed for Medical Erectile Branch dysfunctio n (2-3 times/weel , 2 hrs prior to sexual activity). tadalafiL 2021-02 Yes [id number] 20mg Take 1 U nivers (CIALIS) 20 0-20 tablet by ity of mg tablet 00:00: mouth as [place] 00 needed for Medical Erectile Branch dysfunctio n (2-3 times/weel , 2 hrs prior to sexual activity). tadalafiL 2021-02 Yes [id number] 20mg Take 1 U nivers (CIALIS) 20 0-20 tablet by ity of mg tablet 00:00: mouth [place] 00 needed for Medical Erectile Branch dysfunctio n (2-3 times/weel , 2 hrs prior to sexual activity). tadalafiL 2021-02 Yes [id number] 20mg Take 1 U nivers (CIALIS) 20 0-20 tablet by ity of mg tablet 00:00: mouth as [place] 00 needed for Medical Erectile Branch dysfunctio n (2-3 times/weel , 2 hrs prior to sexual activity). tadalafiL 2021-02 Yes [id number] 20mg Take 1 U nivers (CIALIS) 20 0-20 tablet by ity of mg tablet 00:00: mouth as [place] 00 needed for Medical Erectile Branch dysfunctio n (2-3 times/weel , 2 hrs prior to sexual activity). tadalafiL 2021-023- No [id number] 20mg Take 1 Univers (CIALIS) 20 0-20 02-15 tablet by it y of mg tablet 00:00: 00:00 mouth as [place] as 00 :00 needed for Medical Erectile Branch dysfunctio n (2-3 times/weel , 2 hrs prior to sexual activity). gabapentin Yes [facility] (NEURONTIN[facility]-20 st 300 mg 00:00: Hospita capsule 00 l ibuprofen 0 Yes [facility] (ADVIL) 600 8-20 st MG tablet 00:00: Hospita 00 l loratadine 0 Yes 10mg QD Take 1 Metho di (CLARITIN) 8-11 tablet (10 st 10 mg 00:00: mg total) Hospita tablet 00 by mouth l daily. sildenafiL 0 Yes 100mg Q24H Take 1 Meth joseluis (VIAGRA) 8-[address] 100 MG 00:00: (100 mg Hospita tablet 00 total) by l mouth daily as needed. sucralfate Yes TAKE 1 Metho di (CARAFATE) 8-[address] 1 gram 00:00: MOUTH Hospita tablet 00 BEFORE l MEALS AND AT BEDTIME sucralfate 2021-0 Yes [id number] 1g Take 1 Univers (CARAFATE) 8-08 tablet by ity of 1 gram 00:00: mouth [place] tablet 00 before Medical meals and Branch at bedtime. methylPREDN 2022-0 Yes [id number] Take by [facility] ISolone 8-08 mouth ity of (MEDROL, 00:00: SEE-INSTRU Joaquin as DANIELA,) 4 mg 00 CTIONS. Medica l tablets follow Branch package directions sucralfate 2022-0 Yes [id number] 1g Take 1 Univers (CARAFATE) 8-08 tablet by ity of 1 gram 00:00: mouth [place] tablet 00 before Medical meals and Branch at bedtime. methylPREDN 2022-0 Yes [id number] Take by [facility] mouth ity of (MEDROL, 00:00: SEE-INSTRU Joaquin as DANIELA,) 4 mg 00 CTIONS. Medica l tablets follow Branch package directions sucralfate 2022-0 Yes [id number] 1g Take 1 Univers (CARAFATE) 8-08 tablet by ity of 1 gram 00:00: mouth [place] tablet 00 before Medical meals and Branch at bedtime. methylPREDN 2022-0 Yes [id number] Take by [place] [facility] 8-08 mouth ity of (MEDROL, 00:00: SEE-INSTRU Joaquin as DANIELA,) 4 mg 00 CTIONS. Medica l tablets follow Branch package directions sucralfate 2022-0 Yes [id number] 1g Take 1 Univers (CARAFATE) 8-08 tablet by ity of 1 gram 00:00: mouth [place] tablet 00 before Medical meals and Branch at bedtime. methylPREDN 2022-0 Yes [id number] Take by [facility] 8-08 mouth ity of (MEDROL, 00:00: SEE-INSTRU Joaquin as DANIELA,) 4 mg 00 CTIONS. Medica l tablets follow Branch package directions sucralfate 2022-0 Yes [id number] 1g Take 1 Univers (CARAFATE) 8-08 tablet by ity of 1 gram 00:00: mouth [place] tablet 00 before Medical meals and Branch at bedtime. methylPREDN 2022-0 Yes [id number] Take by [facility] ISolone 8-08 mouth ity of (MEDROL, 00:00: SEE-INSTRU Joaquin as DANIELA,) 4 mg 00 CTIONS. Medica l tablets follow Branch package directions sucralfate 2022-0 Yes [id number] 1g Take 1 Univers (CARAFATE) 8-08 tablet by ity of 1 gram 00:00: mouth [place] tablet 00 before Medical meals and Branch at bedtime. methylPREDN 2022-0 Yes [id number] Take by [facility] ISolone 8-08 mouth ity of (MEDROL, 00:00: SEE-INSTRU Joaquin as DANIELA,) 4 mg 00 CTIONS. Medica l tablets follow Branch package directions sucralfate 2022-0 Yes [id number] 1g Take 1 Univers (CARAFATE) 8-08 tablet by ity of 1 gram 00:00: mouth [place] tablet 00 before Medical meals and Branch at bedtime. methylPREDN 2022-0 Yes [id number] Take by [facility] ISolone 8-08 mouth ity of (MEDROL, 00:00: SEE-INSTRU Joaquin as DANIELA,) 4 mg 00 CTIONS. Medica l tablets follow Branch package directions sucralfate 2022-0 Yes [id number] 1g Take 1 Univers (CARAFATE) 8-08 tablet by ity of 1 gram 00:00: mouth [place] tablet 00 before Medical meals and Branch at bedtime. methylPREDN 2022-0 Yes [id number] Take by Univers ISolone 8-08 mouth ity of (MEDROL, 00:00: SEE-INSTRU Joaquin as DANIELA,) 4 mg 00 CTIONS. Medica l tablets follow Branch package directions sucralfate 2022-0 Yes [id number] 1g Take 1 Univers (CARAFATE) 8-08 tablet by ity of 1 gram 00:00: mouth [place] tablet 00 before Medical meals and Branch at bedtime. methylPREDN 2022-0 Yes [id number] Take by [facility] ISolone 8-08 mouth ity of (MEDROL, 00:00: SEE-INSTRU Joaquin as DANIELA,) 4 mg 00 CTIONS. Medica l tablets follow Branch package directions sucralfate 2022-0 Yes [id number] 1g Take 1 Univers (CARAFATE) 8-08 tablet by ity of 1 gram 00:00: mouth [place] tablet 00 before Medical meals and Branch at bedtime. methylPREDN 2022-0 Yes [id number] Take by Univers ISolone 8-08 mouth ity of (MEDROL, 00:00: SEE-INSTRU Joaquin as DANIELA,) 4 mg 00 CTIONS. Medica l tablets follow Branch package directions sucralfate 2022-0 Yes [id number] 1g Take 1 Univers (CARAFATE) 8-08 tablet by ity of 1 gram 00:00: mouth [place] tablet 00 before Medical meals and Branch at bedtime. methylPREDN 2022-0 Yes [id number] Take by [facility] 8 mouth ity of (MEDROL, 00:00: SEE-INSTRU Joaquin as DANIELA,) 4 mg 00 CTIONS. Medica l tablets follow Branch package directions sucralfate 2022-0 Yes [id number] 1g Take 1 Univers (CARAFATE) 8-08 tablet by ity of 1 gram 00:00: mouth [place] tablet 00 before Medical meals and Branch at bedtime. methylPREDN 2022-0 Yes [id number] Take by [place] [facility] 8 mouth ity of (MEDROL, 00:00: SEE-INSTRU Joaquin as DANIELA,) 4 mg 00 CTIONS. Medica l tablets follow Branch package directions sucralfate 2021-0 Yes [id number] 1g Take 1 Univers (CARAFATE) 8-08 tablet by ity of 1 gram 00:00: mouth [place] tablet 00 before Medical meals and Branch at bedtime. methylPREDN 2022-0 Yes [id number] Take by [facility] 8 mouth ity of (MEDROL, 00:00: SEE-INSTRU Joaquin as DANIELA,) 4 mg 00 CTIONS. Medica l tablets follow Branch package directions sucralfate 2021-0 3- No [id number] 1g Take 1 Univers (CARAFATE) 8-09 12- tablet by ity of 1 gram 00:00: 00:00 mouth [place] tablet 00 :00 before Medical meals and Branch at bedtime. methylPREDN 2-0 2023- No [id number] Take by [place] [facility] 09-17 03-02 mouth ity of (MEDROL, 00:00: 00:00 [place]INSTRU [place]ANIELA,) 4 mg 00 :00 CTIONS. Medica l tablets follow Branch package directions methocarbam 2021-0 Yes TAKE 2 Meth joseluis oL 8-[address] (ROBAXIN) 00:00: MOUTH FOUR [facility] 500 MG 00 TIMES l tablet DAILY NEEDED FOR MODERATE PAIN pantoprazol 0 Yes [id number] 40mg Take 1 Univers e 40 mg EC 8-04 tablet by ity of tablet 00:00: mouth in [place] 00 the Medical morning. Branch pantoprazol 2-0 Yes [id number] 40mg Take 1 Univers e 40 mg EC 8-04 tablet by ity of tablet 00:00: mouth in [place] 00 the Medical morning. Branch pantoprazol 2-0 Yes [id number] 40mg Take 1 Univers e 40 mg EC 8-04 tablet by ity of tablet 00:00: mouth in [place] 00 the Medical morning. Branch pantoprazol 2-0 Yes [id number] 40mg Take 1 Univers e 40 mg EC 8-04 tablet by ity of tablet 00:00: mouth in [place] the Medical morning. Branch pantoprazol 2-0 Yes [id number] 40mg Take 1 Univers e 40 mg EC 8-04 tablet by ity of tablet 00:00: mouth in [place] the Medical morning. Branch pantoprazol 2-0 Yes [id number] 40mg Take 1 Univers e 40 mg EC 8-04 tablet by ity of tablet 00:00: mouth in [place] the Medical morning. Branch pantoprazol 2-0 Yes [id number] 40mg Take 1 Univers e 40 mg EC 8-04 tablet by ity of tablet 00:00: mouth in [place] the Medical morning. Branch pantoprazol 2-0 Yes [id number] 40mg Take 1 Univers e 40 mg EC 8-04 tablet by ity of tablet 00:00: mouth in [place] the Medical morning. Branch pantoprazol 2-0 Yes [id number] 40mg Take 1 Univers e 40 mg EC 8-04 tablet by ity of tablet 00:00: mouth in [place] the Medical morning. Branch pantoprazol 2-0 Yes [id number] 40mg Take 1 Univers e 40 mg EC 8-04 tablet by ity of tablet 00:00: mouth in [place] 00 the Medical morning. Branch pantoprazol 2022-0 Yes [id number] 40mg Take 1 Univers e 40 mg EC 8-04 tablet by ity of tablet 00:00: mouth in [place] 00 the Medical morning. Branch pantoprazol 2022-0 Yes [id number] 40mg Take 1 Univers e 40 mg EC 8-04 tablet by ity of tablet 00:00: mouth in [place] 00 the Medical morning. Branch pantoprazol Yes [id number] 40mg Take 1 Univers e 40 mg EC 09-13 tablet by ity of tablet 00:00: mouth in [place] 00 the Medical morning. Branch pantoprazol 2022- No [id number] 40mg Take 1 Univers e 40 mg EC 09-13 tablet by ity of tablet 00:00: 00:00 mouth in [place] 00 :00 the Medical morning. Branch meloxicam 2021- No [id number] 15mg Take 1 U nivers (MOBIC) 15 09-13 tablet by ity of mg tablet 00:00: 00:00 mouth in [facility] as 00 :00 the Medical morning. Branch methocarbam 2021- No [id number] 1000mg Take 2 Univers oL 500 mg 09-13 tablets by ity of tablet 00:00: 00:00 mouth 4 [place] 00 :00 (four) Medical times Branch daily as needed for Pain (scale 4-6). cyclobenzap Yes TAKE 1 Meth joseluis rine 7-[address] (FLEXERIL) 00:00: MOUTH Hospit a 10 mg 00 TWICE A l tablet DAY--[employer] NON PARTICIPAT ING diazePAM Yes TAKE 1 [facility] (VALIUM) 5 7-[address] MG tablet 00:00: MOUTH Hospita 00 EVERY DAY l AT BEDTIME FOR 10 DAYS--[employer] NON PARTICIPAT ING HYDROcodone Yes TAKE 1 Meth joseluis -acetaminop 7-[address] hen (NORCO) 00:00: MOUTH FOUR Hospita 10-325 mg 00 TIMES A l per tablet DAY--[employer] NON PARTICIPAT ING atorvastati Yes 20mg QD Take 1 Meth joseluis n (LIPITOR) 7-25 tablet (20 st 20 mg 00:00: mg total) Hospita tablet 00 by mouth l daily. pantoprazol 0 Yes 40mg Q.5D Take 1 Meth joseluis e 7-24 tablet (40 st (PROTONIX) 00:00: mg total) Ho spita 40 MG EC 00 by mouth 2 l tablet (two) times a day. erythromyci Yes PLACE 1/2 M ethodi n 0.5% 7-[address] (ILOTYCIN) 00:00: LEFT EYE Hos nisha 5 mg/gram 00 FOUR TIMES l (0.5 %) DAILY FOR ophthalmic 5 DAYS. ointment CONTINUE UNTIL YOU FOLLOW UP [facility] E[facility] DOCTOR amLODIPine 2021-0 Yes 5mg QD Take 1 Metho di (NORVASC) 5 7-19 tablet (5 st mg tablet 00:00: mg total) Hos nisha 00 by mouth l daily. loratadine 2021-0 Yes [id number] Take 1 U nivers (ALLERGY 7-18 tablet by ity of RELIEF, 00:00: [place] LORATADINE, 00 daily Medical ) 10 mg Branch tablet loratadine 2021-0 Yes [id number] Take 1 U nivers (ALLERGY 7-18 tablet by ity of RELIEF, 00:00: mouth [place] LORATADINE, 00 daily Medical ) 10 mg Branch tablet loratadine 2021-0 Yes [id number] Take 1 U nivers (ALLERGY 7-18 tablet by ity of RELIEF, 00:00: mouth [place] LORATADINE, 00 daily Medical ) 10 mg Branch tablet loratadine 2021-0 Yes [id number] Take 1 U nivers (ALLERGY 7-18 tablet by ity of RELIEF, 00:00: mouth [place] LORATADINE, 00 daily Medical ) 10 mg Branch tablet loratadine 2021-0 Yes [id number] Take 1 U nivers (ALLERGY 7-18 tablet by ity of RELIEF, 00:00: mouth [place] LORATADINE, 00 daily Medical ) 10 mg Branch tablet loratadine 2021-0 Yes [id number] Take 1 U nivers (ALLERGY 7-18 tablet by ity of RELIEF, 00:00: mouth [place] LORATADINE, 00 daily Medical ) 10 mg Branch tablet loratadine 2021-0 Yes [id number] Take 1 U nivers (ALLERGY 7-18 tablet by ity of RELIEF, 00:00: mouth [place] LORATADINE, 00 daily Medical ) 10 mg Branch tablet loratadine 2021-0 Yes [id number] Take 1 U nivers (ALLERGY 7-18 tablet by ity of RELIEF, 00:00: mouth [place] LORATADINE, 00 daily Medical ) 10 mg Branch tablet loratadine 2021-0 Yes [id number] Take 1 U nivers (ALLERGY 7-18 tablet by ity of RELIEF, 00:00: mouth [place] LORATADINE, 00 daily Medical ) 10 mg Branch tablet loratadine 2021-0 Yes [id number] Take 1 [facility] (ALLERGY 7-18 tablet by [facility] RELIEF, 00:00: [place] L[place]AT[place] 00 daily Medical ) 10 mg Branch tablet loratadine 2021-0 Yes [id number] Take 1 [facility] (ALLERGY 7-18 tablet by [facility] RELIEF, 00:00: [place] LORATADINE, 00 daily Medical ) 10 mg Branch tablet loratadine 2021-0 Yes [id number] Take 1 [facility] (ALLERGY 7-18 tablet by [facility] RELIEF, 00:00: [place] LORATADINE, 00 daily Medical ) 10 mg Branch tablet loratadine 2021-0 Yes [id number] Take 1 [facility] (ALLERGY 7-18 tablet by [facility] RELIEF, 00:00: [place] LORATADINE, 00 daily Medical ) 10 mg Branch tablet loratadine 2021-0 Yes [id number] Take 1 [facility] (ALLERGY 7-18 tablet by [facility] RELIEF, 00:00: [place] LORATADINE, 00 daily Medical ) 10 mg Branch tablet loratadine 2021-0 Yes [id number] Take 1 [facility] (ALLERGY 7-18 tablet by [facility] RELIEF, 00:00: mouth [place] LORATADINE, 00 daily Medical ) 10 mg Branch tablet loratadine 2021-0 Yes [id number] Take 1 [facility] (ALLERGY 7-18 tablet by [facility] RELIEF, 00:00: mouth [place] LORATADINE, 00 daily Medical ) 10 mg Branch tablet loratadine 2021-0 Yes [id number] Take 1 [facility] (ALLERGY 7-18 tablet by [facility] RELIEF, 00:00: mouth [place] LORATADINE, 00 daily Medical ) 10 mg Branch tablet loratadine 2021-0 Yes [id number] Take 1 [facility] (ALLERGY 7-18 tablet by [facility] RELIEF, 00:00: mouth [place] LORATADINE, 00 daily Medical ) 10 mg Branch tablet loratadine 2021-0 Yes [id number] Take 1 [facility] (ALLERGY 7-18 tablet by [facility] RELIEF, 00:00: mouth [place] LORATADINE, 00 daily Medical ) 10 mg Branch tablet loratadine 2021-0 Yes [id number] Take 1 [facility] (ALLERGY 7-18 tablet by [facility] RELIEF, 00:00: mouth [place] LORATADINE, 00 daily Medical ) 10 mg Branch tablet loratadine 2021-0 Yes [id number] Take 1 [facility] (ALLERGY 7-18 tablet by [facility] RELIEF, 00:00: mouth [place] LORATADINE, 00 daily Medical ) 10 mg Branch tablet GABAPENTIN 2021-0 Yes [id number] TAKE 1 [facility] 300 mg 6-20 CAPSULE BY ity of capsule 00:00: MOUTH [place] THREE Medical TIMES Branch DAILY NEEDED FOR PAIN (SCALE 4-6) GABAPENTIN 2021-0 Yes [id number] TAKE 1 [facility] 300 mg 6-20 CAPSULE BY it[facility] of capsule 00:00: MOUTH THREE Medical TIMES Branch DAILY NEEDED FOR PAIN (SCALE 4-6) GABAPENTIN 2021-0 Yes [id number] TAKE 1 [facility] 300 mg 6-20 CAPSULE BY ity of capsule 00:00: MOUTH THREE Medical TIMES Branch DAILY NEEDED FOR PAIN (SCALE 4-6) GABAPENTIN 2021-0 Yes [id number] TAKE 1 [facility] 300 mg 6-20 CAPSULE BY ity of capsule 00:00: MOUTH [place] 00 THREE Medical TIMES Branch DAILY NEEDED FOR PAIN (SCALE 4-6) GABAPENTIN 2021-0 Yes [id number] TAKE 1 [facility] 300 mg 6-20 CAPSULE BY ity of capsule 00:00: MOUTH [place] 00 THREE Medical TIMES Branch DAILY NEEDED FOR PAIN (SCALE 4-6) GABAPENTIN 2021-0 Yes [id number] TAKE 1 [facility] 300 mg 6-20 CAPSULE BY it[facility] of capsule 00:00: MOUTH [place] 00 THREE Medical TIMES Branch DAILY NEEDED FOR PAIN (SCALE 4-6) GABAPENTIN 2021-0 Yes [id number] TAKE 1 [facility] 300 mg 6-20 CAPSULE BY ity of capsule 00:00: MOUTH [place] 00 THREE Medical TIMES Branch DAILY NEEDED FOR PAIN (SCALE 4-6) GABAPENTIN 2021-0 Yes [id number] TAKE 1 [facility] 300 mg 6-20 CAPSULE BY it[facility] of capsule 00:00: MOUTH THREE Medical TIMES Branch DAILY NEEDED FOR PAIN (SCALE 4-6) GABAPENTIN 2021-0 Yes [id number] TAKE 1 [facility] 300 mg 6-20 CAPSULE BY ity of capsule 00:00: MOUTH THREE Medical TIMES Branch DAILY NEEDED FOR PAIN (SCALE 4-6) GABAPENTIN 2022-0 Yes [id number] TAKE 1 [facility] 300 mg 6-20 CAPSULE BY it[facility] of capsule 00:00: MOUTH THREE Medical TIMES Branch DAILY NEEDED FOR PAIN (SCALE 4-6) GABAPENTIN 2021-0 Yes [id number] TAKE 1 [facility] 300 mg 6-20 CAPSULE BY [facility] of capsule 00:00: MOUTH THREE Medical TIMES Branch DAILY NEEDED FOR PAIN (SCALE 4-6) GABAPENTIN 2021-0 Yes [id number] TAKE 1 [facility] 300 mg 6-20 CAPSULE BY [facility] of capsule 00:00: MOUTH THREE Medical TIMES Branch DAILY NEEDED FOR PAIN (SCALE 4-6) GABAPENTIN 2021-0 Yes [id number] TAKE 1 [facility] 300 mg 6-20 CAPSULE BY [facility]y of capsule 00:00: MOUTH THREE Medical TIMES Branch DAILY NEEDED FOR PAIN (SCALE 4-6) GABAPENTIN 2021-0 Yes [id number] TAKE 1 [facility] 300 mg 6-20 CAPSULE BY [facility] of capsule 00:00: MOUTH THREE Medical TIMES Branch DAILY NEEDED FOR PAIN (SCALE 4-6) GABAPENTIN 2021-0 Yes [id number] TAKE 1 [facility] 300 mg 6-20 CAPSULE BY [facility] of capsule 00:00: MOUTH THREE Medical TIMES Branch DAILY NEEDED FOR PAIN (SCALE 4-6) GABAPENTIN 2022-0 Yes [id number] TAKE 1 [facility] 300 mg 6-20 CAPSULE BY [facility] of capsule 00:00: MOUTH THREE Medical TIMES Branch DAILY NEEDED FOR PAIN (SCALE 4-6) GABAPENTIN 2022-0 Yes [id number] TAKE 1 [facility] 300 mg 6-20 CAPSULE BY [facility] of capsule 00:00: MOUTH THREE Medical TIMES Branch DAILY NEEDED FOR PAIN (SCALE 4-6) GABAPENTIN 2022-0 Yes [id number] TAKE 1 [facility] 300 mg 6-20 CAPSULE BY [facility] of capsule 00:00: MOUTH THREE Medical TIMES Branch DAILY NEEDED FOR PAIN (SCALE 4-6) GABAPENTIN 2021-0 Yes [id number] TAKE 1 [facility] 300 mg 6-20 CAPSULE BY [facility] of capsule 00:00: MOUTH [place] 00 THREE Medical TIMES Branch DAILY NEEDED FOR PAIN (SCALE 4-6) GABAPENTIN 2021-0 Yes [id number] TAKE 1 [facility] 300 mg 6-20 CAPSULE BY [facility] of capsule 00:00: MOUTH [place] 00 THREE Medical TIMES Branch DAILY NEEDED FOR PAIN (SCALE 4-6) GABAPENTIN 2021-0 Yes [id number] TAKE 1 [facility] 300 mg 6-20 CAPSULE BY [facility] of capsule 00:00: MOUTH [place] 00 THREE Medical TIMES Branch DAILY NEEDED FOR PAIN (SCALE 4-6) pantoprazol 2021- No [id number] 40mg Take 1 [facility] e 5-24 08-04 tablet by [facility] of (PROTONIX) 00:00: 00:00 mouth 2 [place] 40 mg EC 00 :00 (two) Medical tablet times Branch daily. losartan 0 Yes [id number] 100mg Take 1 [facility] 100 mg 4-29 tablet by [facility] of tablet 00:00: mouth [place] 00 daily. Medical Branch losartan 0 Yes [id number] 100mg Take 1 [facility] [place] 100 mg 4-29 tablet by [facility] of tablet 00:00: mouth [place] 00 daily. Medical Branch losartan 0 Yes [id number] 100mg Take 1 [facility] 100 mg 4-29 tablet by [facility] of tablet 00:00: mouth [place] 00 daily. Medical Branch losartan 2021-0 Yes [id number] 100mg Take 1 [facility] [place] 100 mg 4-29 tablet by [facility] of tablet 00:00: mouth [place] 00 daily. Medical Branch losartan 2021-0 Yes [id number] 100mg Take 1 [facility] [place] 100 mg 4-29 tablet by [facility] of tablet 00:00: mouth [place] 00 daily. Medical Branch losartan 2021-0 Yes [id number] 100mg Take 1 [facility] [place] 100 mg 4-29 tablet by [facility] of tablet 00:00: mouth [place] 00 daily. Medical Branch losartan 2021-0 Yes [id number] 100mg Take 1 [facility] [place] 100 mg 4-29 tablet by [facility] of tablet 00:00: mouth [place] 00 daily. Medical Branch losartan 2021-0 Yes [id number] 100mg Take 1 [facility] [place] 100 mg 4-29 tablet by [facility] of tablet 00:00: mouth [place] 00 daily. Medical Branch losartan 2-0 Yes [id number] 100mg Take 1 [facility] [place] 100 mg 4-29 tablet by [facility] of tablet 00:00: mouth [place] 00 daily. Medical Branch losartan 2-0 Yes [id number] 100mg Take 1 [facility] [place] 100 mg 4-29 tablet by [facility] of tablet 00:00: mouth [place] 00 daily. Medical Branch losartan 2-0 Yes [id number] 100mg Take 1 [facility] [place] 100 mg 4-29 tablet by [facility] of tablet 00:00: mouth [place] 00 daily. Medical Branch losartan 2021-0 Yes [id number] 100mg Take 1 [facility] [place] 100 mg 4-29 tablet by [facility] of tablet 00:00: mouth [place] 00 daily. Medical Branch losartan 2021-0 Yes [id number] 100mg Take 1 [facility] [place] 100 mg 4-29 tablet by [facility] of tablet 00:00: mouth [place] 00 daily. Medical Branch losartan 2-0 Yes [id number] 100mg Take 1 [facility] [place] 100 mg 4-29 tablet by [facility] of tablet 00:00: mouth [place] 00 daily. Medical Branch losartan 2021-0 Yes [id number] 100mg Take 1 [facility] [place] 100 mg 4-29 tablet by [facility] of tablet 00:00: mouth [place] 00 daily. Medical Branch losartan 2-0 Yes [id number] 100mg Take 1 [facility] [place] 100 mg 4-29 tablet by [facility] of tablet 00:00: mouth [place] 00 daily. Medical Branch losartan 2-0 Yes [id number] 100mg Take 1 [facility] [place] 100 mg 4-29 tablet by [facility] of tablet 00:00: mouth [place] 00 daily. Medical Branch losartan 2-0 Yes [id number] 100mg Take 1 [facility] [place] 100 mg 4-29 tablet by [facility] of tablet 00:00: mouth [place] 00 daily. Medical Branch losartan 2-0 Yes [id number] 100mg Take 1 [facility] [place] 100 mg 4-29 tablet by [facility] of tablet 00:00: mouth [place] 00 daily. Medical Branch losartan 2-0 Yes [id number] 100mg Take 1 [facility] [place] 100 mg 4-29 tablet by [facility] of tablet 00:00: mouth [place] 00 daily. Medical Branch losartan 2-0 Yes [id number] 100mg Take 1 [facility] [place] 100 mg 4-29 tablet by [facility] of tablet 00:00: mouth [place] 00 daily. Medical Branch losartan 2021-0 Yes [id number] 100mg Take 1 [facility] [place] 100 mg 4-29 tablet by [facility] of tablet 00:00: mouth [place] 00 daily. Medical Branch losartan 2021-0 Yes [id number] 100mg Take 1 [facility] [place] 100 mg 4-29 tablet by [facility] of tablet 00:00: mouth [place] 00 daily. Medical Branch losartan 2021-0 Yes [id number] 100mg Take 1 [facility] [place] 100 mg 4-29 tablet by [facility] of tablet 00:00: mouth [place] 00 daily. Medical Branch losartan 2021-0 Yes [id number] 100mg Take 1 [facility] [place] 100 mg 4-29 tablet by [facility] of tablet 00:00: mouth [place] 00 daily. Medical Branch losartan 2021-0 Yes [id number] 100mg Take 1 [facility] [place] 100 mg 4-29 tablet by [facility] of tablet 00:00: mouth [place] 00 daily. Medical Branch losartan 2021-0 Yes [id number] 100mg Take 1 [facility] 100 mg 4-29 tablet by [facility] of tablet 00:00: mouth [place] 00 daily. Medical Branch atorvastati 0 Yes [id number] 20mg Take 1 [facility] 20 mg 3-15 tablet by [facility] of tablet 00:00: mouth at [place] 00 bedtime. Medical Branch sildenafiL 2021-0 Yes [id number] 100mg Take 1 [facility] (VIAGRA) 3-15 tablet by [facility]y of 100 mg 00:00: mouth [place] tablet 00 every 24 Medical (twenty- Branch ur) hours as needed (ED). atorvastati 2021-0 Yes [id number] 20mg Take 1 [facility] n 20 mg 3-15 tablet by [facility] of tablet 00:00: mouth at [place] 00 bedtime. Medical Branch sildenafiL 2021-0 Yes [id number] 100mg Take 1 [facility] (VIAGRA) 3-15 tablet by [facility]y of 100 mg 00:00: mouth [place] tablet 00 every 24 Medical (twenty-fo Branch ur) hours as needed (ED). atorvastati 2021-0 Yes [id number] 20mg Take 1 [facility] n 20 mg 3-15 tablet by [facility] of tablet 00:00: mouth at [place] 00 bedtime. Medical Branch sildenafiL 2021-0 Yes [id number] 100mg Take 1 [facility] (VIAGRA) 3-15 tablet by ity of 100 mg 00:00: mouth [place] tablet 00 every 24 Medical (twenty-fo Branch ur) hours as needed (ED). atorvastati 0 Yes [id number] 20mg Take 1 [facility] n 20 mg 3-15 tablet by [facility]y of tablet 00:00: mouth at [place] 00 bedtime. Medical Branch sildenafiL 0 Yes [id number] 100mg Take 1 [facility] (VIAGRA) 3-15 tablet by [facility]y of 100 mg 00:00: mouth [place] tablet 00 every 24 Medical (twenty-fo Branch ur) hours as needed (ED). atorvastati Yes [id number] 20mg Take 1 [facility] n 20 mg 3-15 tablet by [facility]y of tablet 00:00: mouth at [place] 00 bedtime. Medical Branch sildenafiL 0 Yes [id number] 100mg Take 1 [facility] (VIAGRA) 3-15 tablet by [facility]y of 100 mg 00:00: mouth [place] tablet 00 every 24 Medical (twenty-fo Branch ur) hours as needed (ED). atorvastati Yes [id number] 20mg Take 1 [facility] n 20 mg 3-15 tablet by [facility] of tablet 00:00: mouth at [place] 00 bedtime. Medical Branch atorvastati Yes [id number] 20mg Take 1 [facility] 20 mg 3-15 tablet by [facility] of tablet 00:00: mouth at [place] 00 bedtime. Medical Branch atorvastati Yes [id number] 20mg Take 1 [facility] 20 mg 3-15 tablet by [facility]y of tablet 00:00: mouth at [place] 00 bedtime. Medical Branch atorvastati 0 Yes [id number] 20mg Take 1 [facility] 20 mg 3-15 tablet by [facility] of tablet 00:00: mouth at [place] 00 bedtime. Medical Branch atorvastati 0 Yes [id number] 20mg Take 1 [facility] 20 mg 3-15 tablet by [facility]y of tablet 00:00: mouth at [place] 00 bedtime. Medical Branch atorvastati Yes [id number] 20mg Take 1 [facility] 20 mg 3-15 tablet by [facility] of tablet 00:00: mouth at [place] 00 bedtime. Medical Branch atorvastati Yes [id number] 20mg Take 1 [facility] 20 mg 3-15 tablet by [facility]y of tablet 00:00: mouth at [place] bedtime. Medical Branch atorvastati 0 Yes [id number] 20mg Take 1 [facility] 20 mg 3-15 tablet by [facility]y of tablet 00:00: mouth at [place] bedtime. Medical Branch atorvastati 0 Yes [id number] 20mg Take 1 [facility] 20 mg 3-15 tablet by [facility]y of tablet 00:00: mouth at [place] bedtime. Medical Branch atorvastati 0 Yes [id number] 20mg Take 1 [facility] 20 mg 3-15 tablet by [facility] of tablet 00:00: mouth at [place] bedtime. Medical Branch atorvastati Yes [id number] 20mg Take 1 [facility] 20 mg 3-15 tablet by [facility] of tablet 00:00: mouth at [place] bedtime. Medical Branch atorvastati Yes [id number] 20mg Take 1 [facility] 20 mg 3-15 tablet by [facility] of tablet 00:00: mouth at [place] [address] bedtime. Medical Branch atorvastati Yes [id number] 20mg Take 1 [facility] 20 mg 3-15 tablet by [facility] of tablet 00:00: mouth at [place] bedtime. Medical Branch atorvastati Yes [id number] 20mg Take 1 [facility] 20 mg 3-15 tablet by [facility] of tablet 00:00: mouth at [place] [address] bedtime. Medical Branch atorvastati Yes [id number] 20mg Take 1 [facility] 20 mg 3-15 tablet by [facility] of tablet 00:00: mouth at [place] [address] bedtime. Medical Branch atorvastati 0 Yes [id number] 20mg Take 1 [facility] 20 mg 3-15 tablet by [facility] of tablet 00:00: mouth at [place] [address] bedtime. Medical Branch atorvastati 0 Yes [id number] 20mg Take 1 [facility] 20 mg 3-15 tablet by [facility] of tablet 00:00: mouth at [place] [address] bedtime. Medical Branch atorvastati 0 Yes [id number] 20mg Take 1 [facility] 20 mg 3-15 tablet by [facility] of tablet 00:00: mouth at [place] [address] bedtime. Medical Branch atorvastati 0 Yes [id number] 20mg Take 1 [facility] 20 mg 3-15 tablet by [facility] of tablet 00:00: mouth at [place] 00 bedtime. Medical Branch atorvastati Yes [id number] 20mg Take 1 [facility] 20 mg 3-15 tablet by [facility]y of tablet 00:00: mouth at [place] 00 bedtime. Medical Branch atorvastati Yes [id number] 20mg Take 1 [facility] 20 mg 3-15 tablet by [facility] of tablet 00:00: mouth at [place] 00 bedtime. Medical Branch atorvastati Yes [id number] 20mg Take 1 [facility] n 20 mg 3-15 tablet by [facility]y of tablet 00:00: mouth at [place] 00 bedtime. Medical Branch sildenafiL 2021- No [id number] 100mg Take 1 [facility] (VIAGRA) 3-15 10-20 tablet by ity o f 100 mg 00:00: 00:00 mouth [place] tablet 00 :00 every 24 Medical (twenty-fo Branch ur) hours as needed (ED). sildenafiL 2021- No [id number] 100mg Take 1 [facility] (VIAGRA) 3-15 10-20 tablet by ity o f 100 mg 00:00: 00:00 mouth [place] tablet 00 :00 every 24 Medical (twenty-fo Branch ur) hours as needed (ED). sildenafiL 2021- No [id number] 100mg Take 1 [facility] (VIAGRA) 3-15 10-20 tablet by ity o f 100 mg 00:00: 00:00 mouth [place] tablet 00 :00 every 24 Medical (twenty-fo Branch ur) hours as needed (ED). gabapentin 2021- No [id number] 300mg Take 1 [facility] 300 mg 3-15 06-20 capsule by [facility] of capsule 00:00: 00:00 mouth 3 [place] 00 :00 (three) Medical times Branch daily. meclizine Yes [id number] 25mg Take 1 [facility] 25 mg 3-14 tablet by [facility] of tablet 00:00: mouth [place] 00 every 6 Medical (six) Branch hours. meclizine 0 Yes [id number] 25mg Take 1 [facility] 25 mg 3-14 tablet by [facility] of tablet 00:00: mouth [place] 00 every 6 Medical (six) Branch hours. meclizine 2021-0 Yes [id number] 25mg Take 1 [facility] 25 mg 3-14 tablet by [facility] of tablet 00:00: mouth [place] 00 every 6 Medical (six) Branch hours. meclizine 2021-0 Yes [id number] 25mg Take 1 [facility] 25 mg 3-14 tablet by [facility] of tablet 00:00: mouth [place] 00 every 6 Medical (six) Branch hours. meclizine 2021-0 Yes [id number] 25mg Take 1 [facility] 25 mg 3-14 tablet by [facility] of tablet 00:00: mouth [place] 00 every 6 Medical (six) Branch hours. meclizine 2021-0 Yes [id number] 25mg Take 1 [facility] 25 mg 3-14 tablet by [facility] of tablet 00:00: mouth [place] 00 every 6 Medical (six) Branch hours. meclizine 2021-0 Yes [id number] 25mg Take 1 [facility] 25 mg 3-14 tablet by [facility] of tablet 00:00: mouth [place] 00 every 6 Medical (six) Branch hours. meclizine 2021-0 Yes [id number] 25mg Take 1 [facility] 25 mg 3-14 tablet by [facility] of tablet 00:00: mouth [place] 00 every 6 Medical (six) Branch hours. meclizine 2021-0 Yes [id number] 25mg Take 1 [facility] 25 mg 3-14 tablet by [facility] of tablet 00:00: mouth [place] 00 every 6 Medical (six) Branch hours. meclizine 2021-0 Yes [id number] 25mg Take 1 [facility] 25 mg 3-14 tablet by [facility] of tablet 00:00: mouth [place] 00 every 6 Medical (six) Branch hours. meclizine 2021-0 Yes [id number] 25mg Take 1 [facility] 25 mg 3-14 tablet by [facility] of tablet 00:00: mouth [place] 00 every 6 Medical (six) Branch hours. meclizine 2-0 Yes [id number] 25mg Take 1 [facility] 25 mg 3-14 tablet by [facility] of tablet 00:00: mouth [place] 00 every 6 Medical (six) Branch hours. meclizine 2-0 Yes [id number] 25mg Take 1 [facility] 25 mg 3-14 tablet by [facility] of tablet 00:00: mouth [place] 00 every 6 Medical (six) Branch hours. meclizine 2-0 3- No [id number] 25mg Take 1 [facility] 25 mg 3-14 03-02 tablet by [facility] of tablet 00:00: 00:00 mouth [place] 00 :00 every 6 Medical (six) Branch hours. meclizine 2-0 3- No [id number] 25mg Take 1 [facility] 25 mg 3-14 03-02 tablet by [facility] of tablet 00:00: 00:00 mouth [place] 00 :00 every 6 Medical (six) Branch hours. ondansetron 2020-0 Yes [id number] 4mg Take 1 [facility] (ZOFRAN 9-29 tablet by ity of ODT) 4 mg 00:00: mouth [place] disintegrat 00 every 8 Medic al ing tablet (eight) Branch hours as needed for Nausea and Vomiting (N/V). ondansetron 2020-0 Yes [id number] 4mg Take 1 [facility] (ZOFRAN 9-29 tablet by ity of ODT) 4 mg 00:00: mouth [place] disintegrat 00 every 8 Medic al ing tablet (eight) Branch hours as needed for Nausea and Vomiting (N/V). ondansetron 2020-0 Yes [id number] 4mg Take 1 [facility] (ZOFRAN 9-29 tablet by ity of ODT) 4 mg 00:00: mouth [place] disintegrat 00 every 8 Medic al ing tablet (eight) Branch hours as needed for Nausea and Vomiting (N/V). ondansetron 2020-0 Yes [id number] 4mg Take 1 [facility] (ZOFRAN 9-29 tablet by ity of ODT) 4 mg 00:00: mouth [place] disintegrat 00 every 8 Medic al ing tablet (eight) Branch hours as needed for Nausea and Vomiting (N/V). ondansetron 2020-0 Yes [id number] 4mg Take 1 [facility] (ZOFRAN 9-29 tablet by ity of ODT) 4 mg 00:00: mouth [place] disintegrat 00 every 8 Medic al ing tablet (eight) Branch hours as needed for Nausea and Vomiting (N/V). ondansetron 2020-0 Yes [id number] 4mg Take 1 [facility] (ZOFRAN 9-29 tablet by ity of ODT) 4 mg 00:00: mouth [place] disintegrat 00 every 8 Medic al ing tablet (eight) Branch hours as needed for Nausea and Vomiting (N/V). ondansetron 2021-0 Yes [id number] 4mg Take 1 [facility] (ZOFRAN 9-29 tablet by ity of ODT) 4 mg 00:00: mouth [place] disintegrat 00 every 8 Medic al ing tablet (eight) Branch hours as needed for Nausea and Vomiting (N/V). ondansetron 2021-0 Yes [id number] 4mg Take 1 [facility] (ZOFRAN 9-29 tablet by ity of ODT) 4 mg 00:00: mouth [place] disintegrat 00 every 8 Medic al ing tablet (eight) Branch hours as needed for Nausea and Vomiting (N/V). ondansetron 2021-0 Yes [id number] 4mg Take 1 [facility] (ZOFRAN 9-29 tablet by ity of ODT) 4 mg 00:00: mouth [place] disintegrat 00 every 8 Medic al ing tablet (eight) Branch hours as needed for Nausea and Vomiting (N/V). ondansetron 2021-0 Yes [id number] 4mg Take 1 [facility] (ZOFRAN 9-29 tablet by ity of ODT) 4 mg 00:00: mouth [place] disintegrat 00 every 8 Medic al ing tablet (eight) Branch hours as needed for Nausea and Vomiting (N/V). ondansetron 2021-0 Yes [id number] 4mg Take 1 [facility] (ZOFRAN 9-29 tablet by ity of ODT) 4 mg 00:00: mouth [place] disintegrat 00 every 8 Medic al ing tablet (eight) Branch hours as needed for Nausea and Vomiting (N/V). ondansetron 2021-0 Yes [id number] 4mg Take 1 [facility] (ZOFRAN 9-29 tablet by ity of ODT) 4 mg 00:00: mouth [place] disintegrat 00 every 8 Medic al ing tablet (eight) Branch hours as needed for Nausea and Vomiting (N/V). ondansetron 2021-0 Yes [id number] 4mg Take 1 [facility] (ZOFRAN 9-29 tablet by ity of ODT) 4 mg 00:00: mouth [place] disintegrat 00 every 8 Medic al ing tablet (eight) Branch hours as needed for Nausea and Vomiting (N/V). ondansetron 2021-0 2023- No [id number] 4mg Take 1 [facility] (ZOFRAN 11-08- tablet by ity of ODT) 4 mg 00:00: 00:00 mouth [place] disintegrat 00 :00 every 8 Medic al ing tablet (eight) Branch hours as needed for Nausea and Vomiting (N/V). ondansetron 2022- No [id number] 4mg Take 1 [facility] (ZOFRAN 11-08- tablet by ity of ODT) 4 mg 00:00: 00:00 mouth [place] disintegrat 00 :00 every 8 Medic al ing tablet (eight) Branch hours as needed for Nausea and Vomiting (N/V). triamcinolo Yes [id number] Apply to [facility] ne 8-26 area(s) 2 ity of acetonide 00:00: (two) [place] 0.1 % 00 times Medical ointment daily. Branch losartan Yes [id number] 25mg Take 1 [facility] mg tablet 8-26 tablet by ity o f 00:00: mouth [place] 00 daily. Medical Branch triamcinolo Yes [id number] Apply to [facility] ne 8-26 area(s) 2 ity of acetonide 00:00: (two) [place] 0.1 % 00 times Medical ointment daily. Branch losartan Yes [id number] 25mg Take 1 [facility] mg tablet 8-26 tablet by ity o f 00:00: mouth [place] 00 daily. Medical Branch triamcinolo Yes [id number] Apply to [facility] ne 8-26 area(s) 2 ity of acetonide 00:00: (two) [place] 0.1 % 00 times Medical ointment daily. Branch losartan 25 Yes [id number] 25mg Take 1 [facility] mg tablet 8-26 tablet by ity o f 00:00: mouth [place] 00 daily. Medical Branch triamcinolo Yes [id number] Apply to [facility] ne 8-26 area(s) 2 ity of acetonide 00:00: (two) [place] 0.1 % 00 times Medical ointment daily. Branch losartan 25 Yes [id number] 25mg Take 1 [facility] mg tablet 8-26 tablet by ity o f 00:00: mouth [place] 00 daily. Medical Branch triamcinolo 2020-0 Yes [id number] Apply to [facility] ne 8-26 area(s) 2 ity of acetonide 00:00: (two) [place] 0.1 % 00 times Medical ointment daily. Branch losartan 25 2020-0 Yes [id number] 25mg Take 1 [facility] mg tablet 8-26 tablet by ity o f 00:00: mouth [place] 00 daily. Medical Branch triamcinolo 2020-0 Yes [id number] Apply to [facility] ne 8-26 area(s) 2 ity of acetonide 00:00: (two) [place] 0.1 % 00 times Medical ointment daily. Branch losartan 25 2020-0 Yes [id number] 25mg Take 1 [facility] mg tablet 8-26 tablet by ity o f 00:00: mouth [place] 00 daily. Medical Branch triamcinolo 2020-0 Yes [id number] Apply to [facility] ne 8-26 area(s) 2 ity of acetonide 00:00: (two) [place] 0.1 % 00 times Medical ointment daily. Branch losartan 25 2020-0 Yes [id number] 25mg Take 1 [facility] mg tablet 8-26 tablet by ity o f 00:00: mouth [place] 00 daily. Medical Branch triamcinolo 2020-0 Yes [id number] Apply to [facility] ne 8-26 area(s) 2 ity of acetonide 00:00: (two) [place] 0.1 % 00 times Medical ointment daily. Branch losartan 25 2020-0 Yes [id number] 25mg Take 1 [facility] mg tablet 8-26 tablet by ity o f 00:00: mouth [place] 00 daily. Medical Branch triamcinolo 2020-0 Yes [id number] Apply to [facility] ne 8-26 area(s) 2 ity of acetonide 00:00: (two) [place] 0.1 % 00 times Medical ointment daily. Branch triamcinolo 2020-0 Yes [id number] Apply to [facility] ne 8-26 area(s) 2 ity of acetonide 00:00: (two) [place] 0.1 % 00 times Medical ointment daily. Branch triamcinolo 2020-0 Yes [id number] Apply to [facility] ne 8-26 area(s) 2 ity of acetonide 00:00: (two) [place] 0.1 % 00 times Medical ointment daily. Branch triamcinolo 2021-0 Yes [id number] Apply to [facility] ne 8-26 area(s) 2 ity of acetonide 00:00: (two) [place] 0.1 % 00 times Medical ointment daily. Branch triamcinolo 1-0 Yes [id number] Apply to [facility] ne 8-26 area(s) 2 ity of acetonide 00:00: (two) [place] 0.1 % 00 times Medical ointment daily. Branch triamcinolo 2021-0 Yes [id number] Apply to [facility] ne 8-26 area(s) 2 ity of acetonide 00:00: (two) [place] 0.1 % 00 times Medical ointment daily. Branch triamcinolo 1-0 Yes [id number] Apply to [facility] ne 8-26 area(s) 2 ity of acetonide 00:00: (two) [place] 0.1 % 00 times Medical ointment daily. Branch triamcinolo 1-0 Yes [id number] Apply to [facility] ne 8-26 area(s) 2 ity of acetonide 00:00: (two) [place] 0.1 % 00 times Medical ointment daily. Branch triamcinolo 1-0 Yes [id number] Apply to [facility] ne 8-26 area(s) 2 ity of acetonide 00:00: (two) [place] 0.1 % 00 times Medical ointment daily. Branch triamcinolo 1-0 Yes [id number] Apply to [facility] ne 8-26 area(s) 2 ity of acetonide 00:00: (two) [place] 0.1 % 00 times Medical ointment daily. Branch triamcinolo 1-0 Yes [id number] Apply to [facility] ne 8-26 area(s) 2 ity of acetonide 00:00: (two) [place] 0.1 % 00 times Medical ointment daily. Branch triamcinolo 2021-0 Yes [id number] Apply to [facility] ne 8-26 area(s) 2 ity of acetonide 00:00: (two) [place] 0.1 % 00 times Medical ointment daily. Branch triamcinolo 2021-0 Yes [id number] Apply to [facility] ne 8-26 area(s) 2 ity of acetonide 00:00: (two) [place] 0.1 % 00 times Medical ointment daily. Branch triamcinolo 2020-0 Yes [id number] Apply to [facility] ne 8-26 area(s) 2 ity of acetonide 00:00: (two) [place] 0.1 % 00 times Medical ointment daily. Branch triamcinolo 2020-0 Yes [id number] Apply to [facility] ne 8-26 area(s) 2 ity of acetonide 00:00: (two) [place] 0.1 % 00 times Medical ointment daily. Branch losartan 25 0 Yes [id number] 25mg Take 1 [facility] mg tablet 8-26 tablet by ity o f 00:00: mouth [place] 00 daily. Medical Branch triamcinolo 2020-0 Yes [id number] Apply to [facility] ne 8-26 area(s) 2 ity of acetonide 00:00: (two) [place] 0.1 % 00 times Medical ointment daily. Branch losartan 25 0 Yes [id number] 25mg Take 1 [facility] mg tablet 8-26 tablet by ity o f 00:00: mouth [place] 00 daily. Medical Branch triamcinolo 0 Yes [id number] Apply to [facility] ne 8-26 area(s) 2 ity of acetonide 00:00: (two) [place] 0.1 % 00 times Medical ointment daily. Branch losartan 25 0 Yes [id number] 25mg Take 1 [facility] mg tablet 8-26 tablet by ity o f 00:00: mouth [place] 00 daily. Medical Branch triamcinolo 2020-0 Yes [id number] Apply to [facility] ne 8-26 area(s) 2 ity of acetonide 00:00: (two) [place] 0.1 % 00 times Medical ointment daily. Branch losartan 25 0 Yes [id number] 25mg Take 1 [facility] mg tablet 8-26 tablet by ity o f 00:00: mouth [place] 00 daily. Medical Branch triamcinolo 2020-0 Yes [id number] Apply to [facility] ne 8-26 area(s) 2 ity of acetonide 00:00: (two) [place] 0.1 % 00 times Medical ointment daily. Branch losartan 25 2020-0 Yes [id number] 25mg Take 1 [facility] mg tablet 8-26 tablet by ity o f 00:00: mouth [place] 00 daily. Medical Branch losartan 25 2022- No [id number] 25mg Take 1 [facility] mg tablet 10-05 tablet by ity of 00:00: 00:00 mouth [place] 00 :00 daily. Medical Branch losartan 25 2022- No [id number] 25mg Take 1 [facility] mg tablet 10-05 tablet by ity of 00:00: 00:00 mouth [place] 00 :00 daily. Medical Branch loratadine 2- No [id number] 10mg Take 1 [facility] 10 mg 10-05 tablet by ity of tablet 00:00: 00:00 mouth [place] 00 :00 daily. Medical Branch lisinopril Yes 10mg Take 10 mg U nivers (PRINIVIL,Z 10-16 by mouth ity of ESTRIL) 10 13:30: every [place] mg tablet 53 morning. MD [facility] Immunizations Ordered Immunization Filled Date Status Comments Sour ce Name Immunization Name Influenza Virus 2022-04-09 Completed Suzanne Se ybold Vaccine, age 6 00:00:00 - External months and up Influenza Virus 2022-04-09 Completed Suzanne Calhoun ybold Vaccine, age 6 00:00:00 - External months and up Influenza Virus 2020-11-09 Completed [facility] y of Vaccine Quad .5 mL 00:00:00 [place] [facility] IM 6+ MO Branch Influenza Virus 2020-11-09 Completed [facility] y of Vaccine Quad .5 mL 00:00:00 [place] [facility] IM 6+ MO Branch Influenza Virus 2020-11-09 Completed [facility] y of Vaccine Quad .5 mL 00:00:00 [place] [facility] IM 6+ MO Branch Influenza Virus 2020-11-09 Completed [facility] y of Vaccine Quad .5 mL 00:00:00 [place] [facility] IM 6+ MO Branch Influenza Virus 2020-11-09 Completed [facility] y of Vaccine Quad .5 mL 00:00:00 [place] [facility] IM 6+ MO Branch Influenza Virus 2020-11-09 Completed [facility] y of Vaccine Quad .5 mL 00:00:00 [place] [facility] IM 6+ MO Branch Influenza Virus 2020-11-09 Completed [facility] y of Vaccine Quad .5 mL 00:00:00 [place] [facility] IM 6+ MO Branch Influenza Virus 2020-11-09 Completed [facility] y of Vaccine Quad .5 mL 00:00:00 [place] [facility] IM 6+ MO Branch Influenza Virus 2020-11-09 Completed [facility] y of Vaccine Quad .5 mL 00:00:00 [place] [facility] IM 6+ MO Branch Influenza Virus 2020-11-09 Completed [facility] y of Vaccine Quad .5 mL 00:00:00 [place] [facility] IM 6+ MO Branch Influenza Virus 2020-11-09 Completed [facility] y of Vaccine Quad .5 mL 00:00:00 [place] [facility] IM 6+ MO Branch Influenza Virus 2020-11-09 Completed [facility] y of Vaccine Quad .5 mL 00:00:00 [place] [facility] IM 6+ MO Branch Influenza Virus 2020-11-09 Completed [facility] y of Vaccine Quad .5 mL 00:00:00 [place] [facility] IM 6+ MO Branch Influenza Virus 2020-11-09 Completed [facility] y of Vaccine Quad .5 mL 00:00:00 [place] [facility] IM 6+ MO Branch Influenza Virus 2020-11-09 Completed [facility] y of Vaccine Quad .5 mL 00:00:00 [place] [facility] IM 6+ MO Branch Influenza Virus 2020-11-09 Completed [facility] y of Vaccine Quad .5 mL 00:00:00 [place] [facility] IM 6+ MO Branch Influenza Virus 2020-11-09 Completed [facility] y of Vaccine Quad .5 mL 00:00:00 [place] [facility] IM 6+ MO Branch Influenza Virus 2020-11-09 Completed [facility] y of Vaccine Quad .5 mL 00:00:00 [place] [facility] IM 6+ MO Branch Influenza Virus 2020-11-09 Completed Suznane Calhoun ybold Vaccine, No Preserv, 00:00:00 - Ex ternal age 6 months and up Influenza Virus 2020-11-09 Completed Suzanne Calhoun ybold Vaccine, No Preserv, 00:00:00 - Ex ternal age 6 months and up Influenza Virus 2019-12-05 Completed [facility] y of Vaccine Quad .5 mL 00:00:00 [place] [facility] IM 6+ MO Branch Influenza Virus 2019-12-05 Completed [facility]it y of Vaccine Quad .5 mL 00:00:00 [place] [facility] IM 6+ MO Branch Influenza Virus 2019-12-05 Completed [facility]it y of Vaccine Quad .5 mL 00:00:00 [place] [facility] IM 6+ MO Branch Influenza Virus 2019-12-05 Completed [facility] y of Vaccine Quad .5 mL 00:00:00 [place] [facility] IM 6+ MO Branch Influenza Virus 2019-12-05 Completed [facility] y of Vaccine Quad .5 mL 00:00:00 [place] [facility] IM 6+ MO Branch Influenza Virus 2019-12-05 Completed [facility] y of Vaccine Quad .5 mL 00:00:00 [place] [facility] IM 6+ MO Branch Influenza Virus 2019-12-05 Completed [facility] y of Vaccine Quad .5 mL 00:00:00 [place] [facility] IM 6+ MO Branch Influenza Virus 2019-12-05 Completed [facility] y of Vaccine Quad .5 mL 00:00:00 [place] [facility] IM 6+ MO Branch Influenza Virus 2019-12-05 Completed [facility]it y of Vaccine Quad .5 mL 00:00:00 [place] [facility] IM 6+ MO Branch Influenza Virus 2019-12-05 Completed [facility] y of Vaccine Quad .5 mL 00:00:00 [place] [facility] IM 6+ MO Branch Influenza Virus 2019-12-05 Completed [facility]it y of Vaccine Quad .5 mL 00:00:00 [place] [facility] IM 6+ MO Branch Influenza Virus 2019-12-05 Completed [facility]it y of Vaccine Quad .5 mL 00:00:00 [place] [facility] IM 6+ MO Branch Influenza Virus 2019-12-05 Completed [facility]it y of Vaccine Quad .5 mL 00:00:00 [place] [facility] IM 6+ MO Branch Influenza Virus 2019-12-05 Completed [facility]it y of Vaccine Quad .5 mL 00:00:00 [place] [facility] IM 6+ MO Branch Influenza Virus 2019-12-05 Completed [facility] y of Vaccine Quad .5 mL 00:00:00 [place] [facility] IM 6+ MO Branch Influenza Virus 2019-12-05 Completed [facility]it y of Vaccine Quad .5 mL 00:00:00 [place] [facility] IM 6+ MO Branch Influenza Virus 2019-12-05 Completed [facility]it y of Vaccine Quad .5 mL 00:00:00 [place] [facility] IM 6+ MO Branch Influenza Virus 2019-12-05 Completed [facility]it y of Vaccine Quad .5 mL 00:00:00 [place] [facility] IM 6+ MO Branch Influenza Virus 2019-12-05 Completed Suzanne Se ybold Vaccine, No Preserv, 00:00:00 - Ex ternal age 6 months and up Influenza Virus 2019-12-05 Completed Suzanne Se ybold Vaccine, Unspecified 00:00:00 - Ex ternal Formulation Influenza Virus 2019-12-05 Completed Suzanne Calhoun ybold Vaccine, No Preserv, 00:00:00 - Ex ternal age 6 months and up Influenza Virus 2019-12-05 Completed Suzanne cardozaмарина Vaccine, Unspecified 00:00:00 - Ex ternal Formulation Influenza Virus 2018-10-16 Completed [facility] y of Vaccine Quad .5 mL 00:00:00 [place] [facility] IM 6+ MO Branch Influenza Virus 2018-10-16 Completed [facility]it y of Vaccine Quad .5 mL 00:00:00 [place] [facility] IM 6+ MO Branch Influenza Virus 2018-10-16 Completed [facility]it y of Vaccine Quad .5 mL 00:00:00 [place] [facility] IM 6+ MO Branch Influenza Virus 2018-10-16 Completed [facility]it y of Vaccine Quad .5 mL 00:00:00 [place] [facility] IM 6+ MO Branch Influenza Virus 2018-10-16 Completed [facility]it y of Vaccine Quad .5 mL 00:00:00 [place] [facility] IM 6+ MO Branch Influenza Virus 2018-10-16 Completed [facility]it y of Vaccine Quad .5 mL 00:00:00 [place] [facility] 6+ MO Branch Influenza Virus 2018-10-16 Completed [facility]it y of Vaccine Quad .5 mL 00:00:00 [place] [facility] IM 6+ MO Branch Influenza Virus 2018-10-16 Completed [facility]it y of Vaccine Quad .5 mL 00:00:00 [place] [facility] 6+ MO Branch Influenza Virus 2018-10-16 Completed [facility]it y of Vaccine Quad .5 mL 00:00:00 [place] [facility] 6+ MO Branch Influenza Virus 2018-10-16 Completed [facility]it y of Vaccine Quad .5 mL 00:00:00 [place] [facility] 6+ MO Branch Influenza Virus 2018-10-16 Completed [facility]it y of Vaccine Quad .5 mL 00:00:00 [place] [facility] IM 6+ MO Branch Influenza Virus 2018-10-16 Completed [facility]it y of Vaccine Quad .5 mL 00:00:00 [place] [facility] IM 6+ MO Branch Influenza Virus 2018-10-16 Completed [facility]it y of Vaccine Quad .5 mL 00:00:00 [place] [facility] IM 6+ MO Branch Influenza Virus 2018-10-16 Completed [facility]it y of Vaccine Quad .5 mL 00:00:00 [place] [facility] IM 6+ MO Branch Influenza Virus 2018-10-16 Completed [facility]it y of Vaccine Quad .5 mL 00:00:00 [place] [facility] IM 6+ MO Branch Influenza Virus 2018-10-16 Completed [facility]it y of Vaccine Quad .5 mL 00:00:00 [place] [facility] IM 6+ MO Branch Influenza Virus 2018-10-16 Completed [facility]it y of Vaccine Quad .5 mL 00:00:00 [place] [facility] IM 6+ MO Branch Influenza Virus 2018-10-16 Completed [facility]it y of Vaccine Quad .5 mL 00:00:00 [place] [facility] IM 6+ MO Branch Influenza Virus 2018-10-16 Completed Suzanne Se ybold Vaccine, No Preserv, 00:00:00 - Ex ternal age 6 months and up Influenza Virus 2018-10-16 Completed Suzanne Se ybold Vaccine, Unspecified 00:00:00 - Ex ternal Formulation Influenza Virus 2018-10-16 Completed Suzanne Se ybold Vaccine, No Preserv, 00:00:00 - Ex ternal age 6 months and up Influenza Virus 2018-10-16 Completed Suzanne Se ybold Vaccine, Unspecified 00:00:00 - Ex ternal Formulation Influenza Virus 2017-11-20 Completed Universit y of Vaccine Quad ID 00:00:00 [facility] ical 18-64 YRS Branch Influenza Virus 2017-11-20 Completed Universit y of Vaccine Quad ID 00:00:00 [facility] ical 18-64 YRS Branch Influenza Virus 2017-11-20 Completed Universit y of Vaccine Quad ID 00:00:00 [facility] ical 18-64 YRS Branch Influenza Virus 2017-11-20 Completed Universit y of Vaccine Quad ID 00:00:00 [facility] ical 18-64 YRS Branch Influenza Virus 2017-11-20 Completed Universit y of Vaccine Quad ID 00:00:00 [facility] ical 18-64 YRS Branch Influenza Virus 2017-11-20 Completed Universit y of Vaccine Quad ID 00:00:00 [facility] ical 18-64 YRS Branch Influenza Virus 2017-11-20 Completed Universit y of Vaccine Quad ID 00:00:00 [facility] ical 18-64 YRS Branch Influenza Virus 2017-11-20 Completed Universit y of Vaccine Quad ID 00:00:00 [facility] ical 18-64 YRS Branch Influenza Virus 2017-11-20 Completed Universit y of Vaccine Quad ID 00:00:00 [facility] ical 18-64 YRS Branch Influenza Virus 2017-11-20 Completed Universit y of Vaccine Quad ID 00:00:00 [facility] ical 18-64 YRS Branch Influenza Virus 2017-11-20 Completed Universit y of Vaccine Quad ID 00:00:00 [facility] ical 18-64 YRS Branch Influenza Virus 2017-11-20 Completed Universit y of Vaccine Quad ID 00:00:00 [facility] ica 18-64 YRS Branch Influenza Virus 2017-11-20 Completed Universit y of Vaccine Quad ID 00:00:00 [facility] ical 18-64 YRS Branch Influenza Virus 2017-11-20 Completed Universit y of Vaccine Quad ID 00:00:00 [facility] ica 18-64 YRS Branch Influenza Virus 2017-11-20 Completed Universit y of Vaccine Quad ID 00:00:00 [facility] ica 18-64 YRS Branch Influenza Virus 2017-11-20 Completed Universit y of Vaccine Quad ID 00:00:00 [facility] ica 18-64 YRS Branch Influenza Virus 2017-11-20 Completed Universit y of Vaccine Quad ID 00:00:00 [facility] ica 18-64 YRS Branch Influenza Virus 2017-11-20 Completed Universit y of Vaccine Quad ID 00:00:00 [facility] ica 18-64 YRS Branch Influenza Virus 2017-11-20 Completed Suzanne Se ybold Vaccine, 00:00:00 - External Intradermal, 18-64 Yrs Influenza Virus 2017-11-20 Completed Suzanne Se ybold Vaccine, Unspecified 00:00:00 - Ex ternal Formulation Influenza Virus 2017-11-20 Completed Suzanne Se ybold Vaccine, 00:00:00 - External Intradermal, 18-64 Yrs Influenza Virus 2017-11-20 Completed Suzanne Se ybold Vaccine, Unspecified 00:00:00 - Ex ternal Formulation Pneumococcal 2016-02-05 Completed University o f Polysaccharide, 00:00:00 [facility] ical PPSV23 (PNEUMOVAX) Branch Influenza Virus 2016-02-05 Completed Universit y of Vaccine Quad IM 3+ 00:00:00 [facility] Pneumococcal 2016-02-05 Completed University o f Polysaccharide, 00:00:00 [facility] ical PPSV23 (PNEUMOVAX) Branch Influenza Virus 2016-02-05 Completed Universit y of Vaccine Quad IM 3+ 00:00:00 [facility] Pneumococcal 2016-02-05 Completed University o f Polysaccharide, 00:00:00 [facility] ical PPSV23 (PNEUMOVAX) Branch Influenza Virus 2016-02-05 Completed Universit y of Vaccine Quad IM 3+ 00:00:00 [facility] Pneumococcal 2016-02-05 Completed University o f Polysaccharide, 00:00:00 [facility] ical PPSV23 (PNEUMOVAX) Branch Influenza Virus 2016-02-05 Completed Universit y of Vaccine Quad IM 3+ 00:00:00 [facility] Pneumococcal 2016-02-05 Completed University o f Polysaccharide, 00:00:00 [place] [facility] ical PPSV23 (PNEUMOVAX) Branch Influenza Virus 2016-02-05 Completed Universit y of Vaccine Quad IM 3+ 00:00:00 [facility] Pneumococcal 2016-02-05 Completed University o f Polysaccharide, 00:00:00 [place] [facility] ical PPSV23 (PNEUMOVAX) Branch Influenza Virus 2016-02-05 Completed Universit y of Vaccine Quad IM 3+ 00:00:00 [facility] Pneumococcal 2016-02-05 Completed University o f Polysaccharide, 00:00:00 [place] [facility] ical PPSV23 (PNEUMOVAX) Branch Influenza Virus 2016-02-05 Completed Universit y of Vaccine Quad IM 3+ 00:00:00 [facility] Pneumococcal 2016-02-05 Completed University o f Polysaccharide, 00:00:00 [place] [facility] ical PPSV23 (PNEUMOVAX) Branch Influenza Virus 2016-02-05 Completed Universit y of Vaccine Quad IM 3+ 00:00:00 [facility] Pneumococcal 2016-02-05 Completed University o f Polysaccharide, 00:00:00 [place] [facility] ical PPSV23 (PNEUMOVAX) Branch Influenza Virus 2016-02-05 Completed Universit y of Vaccine Quad IM 3+ 00:00:00 [facility] Pneumococcal 2016-02-05 Completed University o f Polysaccharide, 00:00:00 [place] [facility] ical PPSV23 (PNEUMOVAX) Branch Influenza Virus 2016-02-05 Completed Universit y of Vaccine Quad IM 3+ 00:00:00 [facility] Pneumococcal 2016-02-05 Completed University o f Polysaccharide, 00:00:00 [place] [facility] ical PPSV23 (PNEUMOVAX) Branch Influenza Virus 2016-02-05 Completed Universit y of Vaccine Quad IM 3+ 00:00:00 [facility] Pneumococcal 2016-02-05 Completed University o f Polysaccharide, 00:00:00 [place] [facility] ical PPSV23 (PNEUMOVAX) Branch Influenza Virus 2016-02-05 Completed Universit y of Vaccine Quad IM 3+ 00:00:00 [facility] Pneumococcal 2016-02-05 Completed University o f Polysaccharide, 00:00:00 [place] [facility] ical PPSV23 (PNEUMOVAX) Branch Influenza Virus 2016-02-05 Completed Universit y of Vaccine Quad IM 3+ 00:00:00 [facility] Pneumococcal 2016-02-05 Completed University o f Polysaccharide, 00:00:00 [place] [facility] ical PPSV23 (PNEUMOVAX) Branch Influenza Virus 2016-02-05 Completed Universit y of Vaccine Quad IM 3+ 00:00:00 [facility] Pneumococcal 2016-02-05 Completed University o f Polysaccharide, 00:00:00 [place] [facility] ical PPSV23 (PNEUMOVAX) Branch Influenza Virus 2016-02-05 Completed Universit y of Vaccine Quad IM 3+ 00:00:00 [facility] Pneumococcal 2016-02-05 Completed University o f Polysaccharide, 00:00:00 [place] [facility] ical PPSV23 (PNEUMOVAX) Branch Influenza Virus 2016-02-05 Completed Universit y of Vaccine Quad IM 3+ 00:00:00 [facility] Pneumococcal 2016-02-05 Completed University o f Polysaccharide, 00:00:00 [place] [facility] ical PPSV23 (PNEUMOVAX) Branch Influenza Virus 2016-02-05 Completed Universit y of Vaccine Quad IM 3+ 00:00:00 [facility] Pneumococcal 2016-02-05 Completed University o f Polysaccharide, 00:00:00 [place] [facility] ical PPSV23 (PNEUMOVAX) Branch Influenza Virus 2016-02-05 Completed Universit y of Vaccine Quad IM 3+ 00:00:00 [facility] Influenza Virus 2016-02-05 Completed Suzanne Se ybold Vaccine, No Preserv, 00:00:00 - Ex ternal age 6 months and up Influenza Virus 2016-02-05 Completed Suzanne Calhoun ybold Vaccine-Whole- 00:00:00 - External Intranasal Pneumococcal 2016-02-05 Completed Suzanne Calhounybo ld Vaccine, 00:00:00 - External Polysaccharide Influenza Virus 2016-02-05 Completed Suzanne Se ybold Vaccine, No Preserv, 00:00:00 - Ex ternal age 6 months and up Influenza Virus 2016-02-05 Completed Suzanne Se ybold Vaccine-Whole- 00:00:00 - External Intranasal Pneumococcal 2016-02-05 Completed Suzanne Calhounybo ld Vaccine, 00:00:00 - External Polysaccharide Pneumococcal Unknown Completed University o f Polysaccharide, [place] [facility] PPSV23 (PNEUMOVAX) Branch Influenza Virus Unknown Completed Universit y of Vaccine Quad IM 3+ [facility] YRS Branch Influenza Virus Unknown Completed Universit y of Vaccine Quad ID [facility] ical 18-64 YRS Branch Influenza Virus Unknown Completed Universit y of Vaccine Quad .5 mL [place] [facility] IM 6+ MO Branch (FLUZONE/FLULAVAL/FL UARIX) Influenza Virus Unknown Completed Universit y of Vaccine Quad .5 mL [place] [facility] IM 6+ MO Branch (FLUZONE/FLULAVAL/FL UARIX) Influenza Virus Unknown Completed Universit y of Vaccine Quad .5 mL [place] [facility] IM 6+ MO Branch (FLUZONE/FLULAVAL/FL UARIX) Pneumococcal Unknown Completed University o f Polysaccharide, [facility] ical PPSV23 (PNEUMOVAX) Branch Influenza Virus Unknown Completed Universit y of Vaccine Quad IM 3+ [facility] YRS Branch Influenza Virus Unknown Completed Universit y of Vaccine Quad ID [facility] 18-64 YRS Branch Influenza Virus Unknown Completed Universit y of Vaccine Quad .5 mL [facility] IM 6+ MO Branch (FLUZONE/FLULAVAL/FL UARIX) Influenza Virus Unknown Completed Universit y of Vaccine Quad .5 mL [facility] IM 6+ MO Branch (FLUZONE/FLULAVAL/FL UARIX) Influenza Virus Unknown Completed Universit y of Vaccine Quad .5 mL [facility] IM 6+ MO Branch (FLUZONE/FLULAVAL/FL UARIX) Pneumococcal Unknown Completed University o f Polysaccharide, [facility] ical PPSV23 (PNEUMOVAX) Branch Influenza Virus Unknown Completed Universit y of Vaccine Quad IM 3+ [facility] YRS Branch Influenza Virus Unknown Completed Universit y of Vaccine Quad ID [facility] 18-64 YRS Branch Influenza Virus Unknown Completed Universit y of Vaccine Quad .5 mL [facility] IM 6+ MO Branch (FLUZONE/FLULAVAL/FL UARIX) Influenza Virus Unknown Completed Universit y of Vaccine Quad .5 mL [facility] IM 6+ MO Branch (FLUZONE/FLULAVAL/FL UARIX) Influenza Virus Unknown Completed Universit y of Vaccine Quad .5 mL [facility] IM 6+ MO Branch (FLUZONE/FLULAVAL/FL UARIX) Pneumococcal Unknown Completed University o f Polysaccharide, [facility] ical PPSV23 (PNEUMOVAX) Branch Influenza Virus Unknown Completed Universit y of Vaccine Quad IM 3+ [facility] YRS Branch Influenza Virus Unknown Completed Universit y of Vaccine Quad ID [facility] 18-64 YRS Branch Influenza Virus Unknown Completed Universit y of Vaccine Quad .5 mL [place] [facility] IM 6+ MO Branch (FLUZONE/FLULAVAL/FL UARIX) Influenza Virus Unknown Completed Universit y of Vaccine Quad .5 mL [place] [facility] IM 6+ MO Branch (FLUZONE/FLULAVAL/FL UARIX) Influenza Virus Unknown Completed Universit y of Vaccine Quad .5 mL [facility] IM 6+ MO Branch (FLUZONE/FLULAVAL/FL UARIX) Pneumococcal Unknown Completed University o f Polysaccharide, [facility] PPSV23 (PNEUMOVAX) Branch Influenza Virus Unknown Completed Universit y of Vaccine Quad IM 3+ [facility] YRS Branch Influenza Virus Unknown Completed Universit y of Vaccine Quad ID [facility] 18-64 YRS Branch Influenza Virus Unknown Completed Universit y of Vaccine Quad .5 mL [facility] IM 6+ MO Branch (FLUZONE/FLULAVAL/FL UARIX) Influenza Virus Unknown Completed Universit y of Vaccine Quad .5 mL [facility] IM 6+ MO Branch (FLUZONE/FLULAVAL/FL UARIX) Influenza Virus Unknown Completed Universit y of Vaccine Quad .5 mL [facility] IM 6+ MO Branch (FLUZONE/FLULAVAL/FL UARIX) Pneumococcal Unknown Completed University o f Polysaccharide, [facility] ical PPSV23 (PNEUMOVAX) Branch Influenza Virus Unknown Completed Universit y of Vaccine Quad IM 3+ [facility] YRS Branch Influenza Virus Unknown Completed Universit y of Vaccine Quad ID [facility] 18-64 YRS Branch Influenza Virus Unknown Completed Universit y of Vaccine Quad .5 mL [facility] IM 6+ MO Branch (FLUZONE/FLULAVAL/FL UARIX) Influenza Virus Unknown Completed Universit y of Vaccine Quad .5 mL [facility] IM 6+ MO Branch (FLUZONE/FLULAVAL/FL UARIX) Influenza Virus Unknown Completed Universit y of Vaccine Quad .5 mL [facility] IM 6+ MO Branch (FLUZONE/FLULAVAL/FL UARIX) Pneumococcal Unknown Completed University o f Polysaccharide, [facility] ical PPSV23 (PNEUMOVAX) Branch Influenza Virus Unknown Completed Universit y of Vaccine Quad IM 3+ [facility] YRS Branch Influenza Virus Unknown Completed Universit y of Vaccine Quad ID [facility] 18-64 YRS Branch Influenza Virus Unknown Completed [facility]it y of Vaccine Quad .5 mL [place] [facility] IM 6+ MO Branch (FLUZONE/FLULAVAL/FL UARIX) Influenza Virus Unknown Completed Universit y of Vaccine Quad .5 mL [place] [facility] IM 6+ MO Branch (FLUZONE/FLULAVAL/FL UARIX) Influenza Virus Unknown Completed Universit y of Vaccine Quad .5 mL [place] [facility] IM 6+ MO Branch (FLUZONE/FLULAVAL/FL UARIX) Pneumococcal Unknown Completed University o f Polysaccharide, [facility] ical PPSV23 (PNEUMOVAX) Branch Influenza Virus Unknown Completed Universit y of Vaccine Quad IM 3+ [facility] YRS Branch Influenza Virus Unknown Completed Universit y of Vaccine Quad ID [facility] 18-64 YRS Branch Influenza Virus Unknown Completed Universit y of Vaccine Quad .5 mL [place] [facility] IM 6+ MO Branch (FLUZONE/FLULAVAL/FL UARIX) Influenza Virus Unknown Completed Universit y of Vaccine Quad .5 mL [facility] IM 6+ MO Branch (FLUZONE/FLULAVAL/FL UARIX) Influenza Virus Unknown Completed [facility]it y of Vaccine Quad .5 mL [facility] IM 6+ MO Branch (FLUZONE/FLULAVAL/FL UARIX) Pneumococcal Unknown Completed University o f Polysaccharide, [facility] PPSV23 (PNEUMOVAX) Branch Influenza Virus Unknown Completed Universit y of Vaccine Quad IM 3+ [facility] YRS Branch Influenza Virus Unknown Completed Universit y of Vaccine Quad ID [facility] 18-64 YRS Branch Influenza Virus Unknown Completed Universit y of Vaccine Quad .5 mL [facility] IM 6+ MO Branch (FLUZONE/FLULAVAL/FL UARIX) Influenza Virus Unknown Completed Universit y of Vaccine Quad .5 mL [facility] IM 6+ MO Branch (FLUZONE/FLULAVAL/FL UARIX) Influenza Virus Unknown Completed Universit y of Vaccine Quad .5 mL [facility] IM 6+ MO Branch (FLUZONE/FLULAVAL/FL UARIX) Influenza, Unknown Completed [facility] Influ[facility], Unknown Completed [facility] Influenza, Unknown Completed [facility] Influenza, Unknown Completed [facility] COVID-19 Unknown Completed [facility] [facility] Influenza, Unknown Completed [facility] Quadrivalent, Preservative Free Pneumococcal Unknown Completed [facility] Pol[facility] Influenza Virus Unknown Completed Suzanne borges Vaccine, No Preserv, - Ex ternal age 6 months and up Influenza Virus Unknown Completed Suzanne Se ybold Vaccine, No Preserv, - Ex ternal age 6 months and up Influenza Virus Unknown Completed Suzanne Se ybold Vaccine, No Preserv, - Ex ternal age 6 months and up Influenza Virus Unknown Completed Suzanne Se ybold Vaccine, - External Intradermal, 18-64 Yrs Influenza Virus Unknown Completed Suzanne Se ybold Vaccine, No Preserv, - Ex ternal age 6 months and up Influenza Virus Unknown Completed Suzanne Se ybold Vaccine-Whole- - External Intranasal Influenza Virus Unknown Completed Suzanne Se ybold Vaccine, Unspecified - Ex ternal Formulation Influenza Virus Unknown Completed Suzanne Se ybold Vaccine, Unspecified - Ex ternal Formulation Influenza Virus Unknown Completed Suzanne Se ybold Vaccine, Unspecified - Ex ternal Formulation Pneumococcal Unknown Completed Suzanne Seybo ld Vaccine, - External Polysaccharide Influenza Virus Unknown Completed Suzanne Se ybold Vaccine, age 6 - External months and up Influenza Virus Unknown Completed Suzanne Se ybold Vaccine, No Preserv, - Ex ternal age 6 months and up Influenza Virus Unknown Completed Suzanne Se ybold Vaccine, No Preserv, - Ex ternal age 6 months and up Influenza Virus Unknown Completed Suzanne Se ybold Vaccine, No Preserv, - Ex ternal age 6 months and up Influenza Virus Unknown Completed Suzanne Se ybold Vaccine, - External Intradermal, 18-64 Yrs Influenza Virus Unknown Completed Suzanne Se ybold Vaccine, No Preserv, - Ex ternal age 6 months and up Influenza Virus Unknown Completed Suzanne Se ybold Vaccine-Whole- - External Intranasal Influenza Virus Unknown Completed Suzanne Se ybold Vaccine, Unspecified - Ex ternal Formulation Influenza Virus Unknown Completed Suzanne Se ybold Vaccine, Unspecified - Ex ternal Formulation Influenza Virus Unknown Completed Suzanne Se ybold Vaccine, Unspecified - Ex ternal Formulation Pneumococcal Unknown Completed Suzanne Seybo ld Vaccine, - External Polysaccharide Influenza Virus Unknown Completed Suzanne Se ybold Vaccine, age 6 - External months and up Influenza Virus Unknown Completed Suzanne Se ybold Vaccine, No Preserv, - Ex ternal age 6 months and up Influenza Virus Unknown Completed Suzanne Se ybold Vaccine, No Preserv, - Ex ternal age 6 months and up Influenza Virus Unknown Completed Suzanne Se ybold Vaccine, No Preserv, - Ex ternal age 6 months and up Influenza Virus Unknown Completed Suzanne Se ybold Vaccine, - External Intradermal, 18-64 Yrs Influenza Virus Unknown Completed Suzanne Se ybold Vaccine, No Preserv, - Ex ternal age 6 months and up Influenza Virus Unknown Completed Suzannevikas cardozaold Vaccine-Whole- - External Intranasal Influenza Virus Unknown Completed Suzanne Se ybold Vaccine, Unspecified - Ex ternal Formulation Influenza Virus Unknown Completed Suzanne Se ybold Vaccine, Unspecified - Ex ternal Formulation Influenza Virus Unknown Completed Suzanne Se ybold Vaccine, Unspecified - Ex ternal Formulation Pneumococcal Unknown Completed Suzannevikas Galindoo ld Vaccine, - External Polysaccharide Influenza Virus Unknown Completed Suzanne Se ybold Vaccine, age 6 - External months and up Tdap- (Boostrix, Unknown Completed Suzanne duttonbold Adacel) - External Influenza Virus Unknown Completed Suzanne Se ybold Vaccine, No Preserv, - Ex ternal age 6 months and up Influenza Virus Unknown Completed Suzanne Se ybold Vaccine, No Preserv, - Ex ternal age 6 months and up Influenza Virus Unknown Completed Suzanne Se ybold Vaccine, No Preserv, - Ex ternal age 6 months and up Influenza Virus Unknown Completed Suzanne Se ybold Vaccine, - External Intradermal, 18-64 Yrs Influenza Virus Unknown Completed Suzanne Calhoun ybold Vaccine, No Preserv, - Ex ternal age 6 months and up Influenza Virus Unknown Completed Suzanne cardozaold Vaccine-Whole- - External Intranasal Influenza Virus Unknown Completed Suzanne Calhoun ybold Vaccine, Unspecified - Ex ternal Formulation Influenza Virus Unknown Completed Suzanne Calhoun ybold Vaccine, Unspecified - Ex ternal Formulation Influenza Virus Unknown Completed Suzanne Calhoun ybold Vaccine, Unspecified - Ex ternal Formulation Pneumococcal Unknown Completed Suzanne Galindoo ld Vaccine, - External Polysaccharide Influenza Virus Unknown Completed Suzanne Calhoun ybold Vaccine, age 6 - External months and up Tdap- (Boostrix, Unknown Completed Suzanne duttonbold Adacel) - External Influenza Virus Unknown Completed Suzanne Se ybold Vaccine, No Preserv, - Ex ternal age 6 months and up Influenza Virus Unknown Completed Suzanne Se ybold Vaccine, No Preserv, - Ex ternal age 6 months and up Influenza Virus Unknown Completed Suzanne Se ybold Vaccine, No Preserv, - Ex ternal age 6 months and up Influenza Virus Unknown Completed Suzanne Se ybold Vaccine, - External Intradermal, 18-64 Yrs Influenza Virus Unknown Completed Suzanne Se ybold Vaccine, No Preserv, - Ex ternal age 6 months and up Influenza Virus Unknown Completed Suzanne borges Vaccine-Whole- - External Intranasal Influenza Virus Unknown Completed Suzanne borges Vaccine, Unspecified - Ex ternal Formulation Influenza Virus Unknown Completed Suzanne borges Vaccine, Unspecified - Ex ternal Formulation Influenza Virus Unknown Completed Suzanne borges Vaccine, Unspecified - Ex ternal Formulation Pneumococcal Unknown Completed Suzanne Galindoo ld Vaccine, - External Polysaccharide Influenza Virus Unknown Completed Suzanne borges Vaccine, age 6 - External months and up Tdap- (Boostrix, Unknown Completed Suzanne Zamora juan luis Adacel) - External Vital Signs Vital Name Observation Time Observation Value Comments Source Systolic blood 2022-12-20 08:00:00 147 mm[Hg[facility] Diastolic blood 2022-12-20 08:00:00 84 mm[Hg] [facility] Heart [facility] 2022-12-20 08:00:00 86 /min [facility] Respiratory rate 2022-12-20 08:00:00 20 /min [facility] Body temperature 2022-12-20 07:05:00 37.39 Nayana [facility] Body height 2022-12-20 07:05:00 172.7 cm [facility] Body weight 2022-12-20 07:05:00 79.379 kg [facility] BMI 2022-12-20 07:05:00 26.61 kg/m2 [facility] Oxygen saturation in 2022-12-20 07:05:00 97 /min [facility] Arterial blood by [facility] Pulse oximetry Branch Systolic blood 2022-12-04 15:51:00 154 mm[Hg] Suzanne Tovar - pressure External Diastolic blood 2022-12-04 15:51:00 92 mm[Hg] Frances Tovar - pressure External Heart rate 2022-12-04 15:51:00 70 /min Suzanne duttonbomunira - External Body temperature 2022-12-04 15:51:00 36.89 Nayana Lauren ey Seybold - External Respiratory rate 2022-12-04 15:51:00 18 /min Lauren dutton Seybold - External Body height 2022-12-04 15:51:00 170.2 cm Suzanne Zamora eybold - External Body weight 2022-12-04 15:51:00 79.924 kg Suzanne S eybold - External BMI 2022-12-04 15:51:00 27.60 kg/m2 Suzanne S eybold - External Oxygen saturation in 2022-12-04 15:51:00 99 /min Suzanne Seybold - Arterial blood by External Pulse oximetry Systolic blood 2022-11-26 14:29:00 132 mm[Hg] Suzanne Seybold - pressure External Diastolic blood 2022-11-26 14:29:00 88 mm[Hg] Joelse y Seybold - pressure External Heart rate 2022-11-26 14:29:00 57 /min Suzanne Zamora eybold - External Body temperature 2022-11-26 14:29:00 36.78 Nayana Lauren ey Seybold - External Respiratory rate 2022-11-26 14:29:00 18 /min Lauren ey Seybold - External Body height 2022-11-26 14:29:00 170.2 cm Suzanne Zamora eybold - External Body weight 2022-11-26 14:29:00 78.926 kg Suzanne Zamora eybold - External BMI 2022-11-26 14:29:00 27.25 kg/m2 Suzanne Zamora eybold - External Oxygen saturation in 2022-11-26 14:29:00 95 /min Suzanne Seybold - Arterial blood by External Pulse oximetry Systolic blood 2022-11-18 16:07:00 149 mm[Hg] Suzanne Seybold - pressure External Diastolic blood 2022-11-18 16:07:00 92 mm[Hg] Joelse y Seybold - pressure External Heart rate 2022-11-18 16:07:00 81 /min Suzanne S eybold - External Body temperature 2022-11-18 16:07:00 36.61 Nayana Lauren ey Seybold - External Respiratory rate 2022-11-18 16:07:00 15 /min Lauren ey Seybold - External Body height 2022-11-18 16:07:00 172.7 cm Suzanne S eybold - External Body weight 2022-11-18 16:07:00 81.194 kg Suzanne Zamora eybold - External BMI 2022-11-18 16:07:00 27.22 kg/m2 Suzanne Zamoar eybold - External Oxygen saturation in 2022-11-18 16:07:00 99 /min Suzanne Seybold - Arterial blood by External Pulse oximetry Systolic blood 2022-10-30 21:15:00 163 mm[Hg] Suzanne Seybold - pressure External Diastolic blood 2022-10-30 21:15:00 97 mm[Hg] Kelse y Seybold - pressure External Heart rate 2022-10-30 21:15:00 90 /min Suzanne S eybold - External Body temperature 2022-10-30 21:15:00 38.17 Nayana Lauren ey Seybold - External Respiratory rate 2022-10-30 21:15:00 22 /min Lauren ey Seybold - External Body height 2022-10-30 21:15:00 172.7 cm Suzanne Zamora eybold - External Body weight 2022-10-30 21:15:00 79.379 kg Suzanne Zamora eybold - External BMI 2022-10-30 21:15:00 26.61 kg/m2 Suzanne Zamora eybold - External Systolic blood 2022-10-21 18:47:00 131 mm[Hg] Suzanne Seybold - pressure External Diastolic blood 2022-10-21 18:47:00 93 mm[Hg] Joelse y Seybold - pressure External Heart rate 2022-10-21 18:47:00 84 /min Suzanne Zamora eybold - External Body temperature 2022-10-21 18:47:00 37.06 Nayana Lauren ey Seybold - External Respiratory rate 2022-10-21 18:47:00 20 /min Lauren ey Seybold - External Body height 2022-10-21 18:47:00 170.2 cm Suzanne Zamora eybold - External Body weight 2022-10-21 18:47:00 80.287 kg Suzanne S eybold - External BMI 2022-10-21 18:47:00 27.72 kg/m2 Suzanne Zamora eybold - External Oxygen saturation in 2022-10-21 18:47:00 99 /min Suzanne Seybold - Arterial blood by External Pulse oximetry Systolic blood 2022-04-14 21:40:00 155 mm[Hg] Univer sity of pressure [facility] Diastolic blood 2022-04-14 21:40:00 91 mm[Hg] Unive rsity of pressure [facility] Heart rate 2022-04-14 21:40:00 72 /min Universi ty [facility] Body temperature 2022-04-14 21:40:00 36.44 Nayana Univ ersity of [facility] Respiratory rate 2022-04-14 21:40:00 12 /min Univ ersity of [facility] Oxygen saturation in 2022-04-14 21:40:00 98 /min University of Arterial blood by [facility] Pulse oximetry Branch Body weight 2022-04-14 09:21:00 84.46 kg Universi ty of [facility] BMI 2022-04-14 09:21:00 28.31 kg/m2 Universi ty [facility] Body height 2022-04-12 01:43:00 172.7 cm Universi ty [facility] Systolic blood 2022-04-09 19:01:00 124 mm[Hg] Suzanne Seybold - pressure External Diastolic blood 2022-04-09 19:01:00 80 mm[Hg] Joelse y Seybold - pressure External Heart rate 2022-04-09 19:01:00 84 /min Suzanne S eybold - External Body temperature 2022-04-09 19:01:00 36.72 Nayana Lauren ey Seybold - External Respiratory rate 2022-04-09 19:01:00 18 /min Lauren ey Seybold - External Body height 2022-04-09 19:01:00 172 cm Suzanne S eybold - External Body weight 2022-04-09 19:01:00 83.008 kg Suzanne S eybold - External BMI 2022-04-09 19:01:00 28.06 kg/m2 Suzanne S eybold - External Systolic blood 2021-11-29 21:11:00 168 mm[Hg] Univer sity of [facility] Diastolic blood 2021-11-29 21:11:00 106 mm[Hg] Unive rsity of pressure [facility] Heart rate 2021-11-29 21:11:00 108 /min [facility] Respiratory rate 2021-11-29 21:09:00 16 /min [facility] Body height 2021-11-29 21:09:00 [facility] Body weight 2021-11-29 21:09:00 86.093 kg [facility] BMI 2021-11-29 21:09:00 28.03 kg/m2 [facility] Oxygen saturation in 2021-11-29 21:09:00 98 /min [facility] Arterial blood by [facility] Pulse oximetry Branch Systolic blood 2021-09-17 19:24:00 128 mm[Hg] Univer sity of pressure [facility] Diastolic blood 2021-09-17 19:24:00 80 mm[Hg] [facility] Heart rate 2021-09-17 19:24:00 81 /min [facility] Body temperature 2021-09-17 19:24:00 36.83 Nayana [facility] height 2021-09-17 19:24:00 175.3 cm [facility] Body weight 2021-09-17 19:24:00 89.812 kg [facility] BMI 2021-09-17 19:24:00 29.24 kg/m2 [facility] Procedures Procedure Date / Time Performing Clinician Source Performed XR ABDOMEN 1 VW 2022-12-20 08:05:25 Raad Guerrier [facility] LIPASE 2022-12-20 07:21:00 Raad Guerrier [facility] TROPONIN I 2022-12-20 07:21:00 Raad Guerrier [facility] COMP. METABOLIC PANEL 2022-12-20 07:21:00 Raad Guerrier [facility] ([id number]) [facility] CBC WITH DIFF 2022-12-20 07:21:00 Raad Guerrier [facility] CONSENT/REFUSAL FOR 2022-12-20 07:00:30 Doctor Unassigned, No Un [facility] DIAGNOSIS AND TREATMENT Name Medical Branch PHOSPHORUS 2022-04-14 11:16:00 [place], [facility] MAGNESIUM 2022-04-14 11:16:00 Paco [facility] BASIC METABOLIC PANEL 2022-04-14 11:16:00 Mert [facility] (NA, K, CL, CO2, Medical Branch GLUCOSE, BUN, CREATININE, CA) CBC WITH DIFF 2022-04-14 11:16:00 Paco [facility] XR SMALL BOWEL SERIES 2022-04-13 22:40:[facility]ATED[facility] 2022-04-13 16:33:00 [facility] 2022-04-13 13:32:14 [facility] 2022-04-13 12:09:00 Paco [facility] BASIC METABOLIC PANEL 2022-04-13 12:09:00 Mert [facility] (NA, K, CL, CO2, Medical Branch GLUCOSE, BUN, CREATININE, CA) CBC WITH DIFF 2022-04-13 12:09:00 Mert [facility] BASIC METABOLIC PANEL 2022-04-12 10:11:00 Sandra [facility] (NA, K, CL, CO2, Medical Branch GLUCOSE, BUN, CREATININE, CA) CBC WITH DIFF 2022-04-12 10:11:00 Sandra [facility] XR KUB 2022-04-12 02:18:55 Sandra [facility] CT ABDOMEN PELVIS W 2022-04-11 23:17:32 Jose Messer [facility] CONTRAST [facility] COMP. METABOLIC PANEL 2022-04-11 23:10:00 Jose Messer [facility] ([id number]) Medical Branch LIPASE 2022-04-11 23:08:00 Jose Messer [facility] CBC WITH DIFF 2022-04-11 22:08:00 Jose Messer [facility] CONSENT/REFUSAL FOR 2022-04-11 21:46:50 Doctor Unassigned, No [facility] Name Medical Branch AUTHORIZATION FOR 2022-02-28 06:01:00 Doctor Unassigned, No [facility] RELEASE OF PHI Name Medical Branch POCT URINALYSIS AUTO 2021-11-29 21:13:00 Joshuabrant Elliott [facility] Branch CONSENT/REFUSAL FOR 2021-11-29 20:52:56 Doctor Unassigned, No Un i[facility]ity [facility] DIAGNOSIS AND TREATMENT Name Medical Branch REFERRAL- 2021-10-22 05:01:00 Doctor Unassigned, No [facility] REQUEST/RESPONSE Name Medical [place] EXTERNAL PROVIDER 2021-10-11 05:01:00 Doctor Unassigned, No [facility] RECORDS Name Medical [place] Plan of Care Planned Activity Planned Date Details Comments Source Future Scheduled 2022-12-05 [facility] Test 17:13:02 malignant neoplasm of colon (procedure) [code = 474999793] Future Scheduled 2022-12-05 [facility] Test 17:13:02 malignant neoplasm of colon (procedure) [code = 665867751] Future Scheduled 2022-12-05 [facility] Test 17:13:02 malignant neoplasm of colon (procedure) [code = 143658754] Future Scheduled 2022-12-05 [facility]INGLES [facility]INES ([facility] Test 17:13:02 of 2) [code = SHINGLES VACCINES (1 of 2)] Future Scheduled 2022-12-05 Pneumococcal Vaccine: [facility] Test 17:13:02 Pediatrics (0 to 5 Years) and At-Risk Patients (6 to 64 Years) (2 - PCV) [code = Pneumococcal Vaccine: Pediatrics (0 to 5 Years) and At-Risk Patients (6 to 64 Years) (2 - PCV)] Future Scheduled 2022-12-05 COVID-19 VACCINE (2 - [facility] Hospital Test 17:13:02 season) [code = COVID-19 VACCINE (2 - season)] Future Scheduled 2022-12-05 INFLUENZA VACCINE (#1) M [facility] Test 17:13:02 [code = INFLUENZA VACCINE (#1)] Future Scheduled 2022-12-05 [facility] Test 17:13:02 malignant neoplasm of colon (procedure) [code = 893796001] Future Scheduled 2022-12-05 [facility] Test 17:13:02 malignant neoplasm of colon (procedure) [code = 699317380] Encounters Start End Encounter Admission Attending Care Care Encounter Source Date/Time Date/Time Type Type Clinicians Facility Department ID 2020-12-20 Outpatient R VIKTOR SOSA [facility] [id number] Univers 13:31:55 VIKTOR SOSA i ty of [facility] 2020-12-12 Emergency [facility] [id number] Univers 02:23:29 ity of [facility] 2020-12-10 Emergency [facility] [id number] Univers 19:54:39 ity [facility] 2020-12-09 Emergency [facility] [id number] Univers 05:45:26 ity [facility] 2020-12-09 Emergency [facility] [id number] Univers 00:48:00 ity [facility] 2023-04-02 2023-04-02 Outpatient BETTY WISE [id number] Suzanne 11:00:00 11:00:00 Seybol rubens 2023-02-26 2023-02-26 Outpatient SUZANNE MEYER [id number] Suzanne 10:00:00 10:00:00 EKTA art 2022-12-20 2022-12-20 Emergency X [facility] ERT [id number] Univers 01:07:00 03:17:00 RAAD ity [facility] 2022-12-20 2022-12-20 Emergency [facility] [id number] Univers 01:07:00 03:17:00 [facility]ad [facility] [id number] ity [facility] [id number] [facility] [id number] [place] [address] Branch 2022-12-20 2022-12-20 Outpatient SUZANNE GRIER [id number] Suzanne 00:00:00 00:00:00 WILVER Seybol rubens 2022-12-13 2022-12-[address] [facility] [id number] Univers 00:00:00 00:00:00 [facility] [id number] it y of [place] [id number] Joaquin as GILLIAN?BLEA [id number] [address] 2022-12-04 2022-12-04 Outpatient BILLIE BETTY ESTEVEZ [id number] Suzanne 11:20:00 11:20:00 Seybol d 2022-12-04 2022-12-04 Outpatient BILLIE BETTY ESTEVZE [id number] Suzanne 00:00:00 00:00:00 Seybol d 2022-11-28 2022-11-28 Outpatient SUZANNE NOGUERA [id number] Suzanne 00:00:00 00:00:00 SUPRIYA Seybol d 2022-11-28 2022-11-[address] [facility] [id number] Univers 00:00:00 00:00:00 [place] [id number] it y of [place] [id number] Joaquin as GILLIAN?BLEA [id number] [address] 2022-11-26 2022-11-26 Outpatient SUZANNE MEYER [id number] Suzanen 10:15:00 10:15:00 EKTA Seybol d 2022-11-26 2022-11-26 Outpatient SUZANNE ESTEVEZ [id number] Suzanne 00:00:00 00:00:00 Seybol d 2022-11-26 2022-11-26 Outpatient SUZANNE CONTRERAS [id number] Suzanne 00:00:00 00:00:00 OANH Seybol d 2022-11-18 2022-11-18 Outpatient SUZANNE NOGUERA [id number] Suzanne 10:45:00 10:45:00 SUPRIYA Seybol d 2022-10-30 2022-10-30 Outpatient SUZANNE ABRAMS [id number] Suzanne 16:30:00 16:30:00 VANESA Seybol d 2022-10-30 2022-10-30 Outpatient BONE-CHO SUZANNE ESTEVEZ [id number] Suzanne 00:00:00 00:00:00 FLOYD Seybol d 2022-10-30 2022-10-30 Outpatient IJEOMA SUZANNE ESTEVEZ [id number] Suzanne 00:00:00 00:00:00 CHIP Seybol d 2022-10-28 2022-10-28 Outpatient AISHASUZANNE [id number] Suzanne 14:15:00 14:15:00 SARAH Seybol d 2022-10-24 2022-10-24 Outpatient IJEOMASUZANNE Zamora [id number] Suzanne 00:00:00 00:00:00 CHIP Seybol d 2022-10-23 2022-10-23 Outpatient PREVERONICASUZANNE Zamora [id number] Suzanne 00:00:00 00:00:00 SUPRIYA Seybol d 2022-10-23 2022-10-23 Outpatient LIZVERONICASUZANNE Zamora [id number] Suzanne 00:00:00 00:00:00 SUPRIYA Seybol d 2022-10-22 2022-10-22 Outpatient LAB90 SUZANNE ESTEVEZ [id number] Suzanne 09:05:00 09:05:00 Seybol d 2022-10-21 2022-10-21 Outpatient LAB90 SUZANNE ESTEVEZ [id number] Suzanne 14:55:00 14:55:00 Seybol d 2022-10-21 2022-10-21 Outpatient SUZANNE NOGUERA [id number] Suzanne 14:00:00 14:00:00 SUPRIYA Seybol d 2022-09-20 2022-09-20 Outpatient 39, HOLTER SUZANNE ESTEVEZ [id number] Suzanne 10:30:00 10:30:00 Seybol d 2022-09-20 2022-09-20 Outpatient SUZANNE CONTRERAS [id number] Suzanne 10:00:00 10:00:00 OANH Seybol d 2022-09-06 2022-09-06 Outpatient SUZANNE TAVERAS [id number] Suzanne 09:40:00 09:40:00 LESLY Seybol d 2022-06-24 2022-06-24 Outpatient TIE, SUZANNE SUZANNE [id number] Suzanne 11:20:00 11:20:00 ROXIE Galindo old 2022-05-27 2022-05-27 Outpatient TIE, SUZANNE SUZANNE [id number] Suzanne 10:00:00 10:00:00 ROXIE [facility] old 2022-05-17 2022-05-17 Refill [facility] [id number] Univers 00:00:00 00:00:00 [place] [id number] i ty of [id number] [id number] La dical [facility] 204 [facility] 2022-05-16 2022-05-16 Telephone [facility] [id number] Univers 00:00:00 00:00:00 [facility] [id number] it y of [place] [id number] Joaquin as GILLIAN?BLEA [id number] La dical [address] 2022-05-15 2022-05-15 Refill [facility] [id number] Univers 00:00:00 00:00:00 [facility] [id number] it y of [place] [id number] Joaquin as GILLIAN?BLEA [id number] La dical [address] 2022-04-17 2022-04-17 Outpatient LAB90 SUZANNE ESTEVEZ [id number] Suzanne 09:40:00 09:40:00 Seybol d 2022-04-16 2022-04-16 Transition ARYA Duenas [id number] Univers 00:00:00 00:00:00 of Care Bruna SABA [id number] [id number] [address] 2022-04-11 2022-04-14 Inpatient X PACO [facility] [id number] Univers 15:52:00 18:55:00 CASTRO ity of [facility] 2022-04-11 2022-04-14 Hospital Jose Messer [facility] [id number] Univers 15:52:00 18:55:00 Encounter Castro Antonio [place] [id number] ity of [id number] [id number] [place] [id number] [place] 2022-04-11 2022-04-11 Telephone [facility] [id number] Univers 00:00:00 00:00:00 [facility] [id number] it y of Edom[place] [id number] Joaquin as GILLIAN?BLEA [id number] [address] MEDICAL OFFICE [facility] 2022-04-09 2022-04-09 Outpatient SUZANNE BLANCO [id number] Suzanne 13:00:00 13:00:00 MARCEL jeremy lombardo 2022-03-27 2022-03-27 Telephone [facility] [id number] [id number] Univers 00:00:00 00:00:00 [facility] 350.1.13.10 it y of [place] 4.2.7.2.686 Joaquin as GILLIAN?BLEA [phone] [address] MEDICAL OFFICE [facility] 2022-03-21 2022-03-21 [place] [facility] 1.2.840.114 [id number] Univers 00:00:00 00:00:00 HEALTH 350.1.13.10 it y of SPECIALTY 4.2.7.2.686 [place] CARE - [phone] [facility] [address] 2022-02-28 2022-02-28 Orders Doctor VANITA 1.2.840.114 [id number] Univers 00:00:00 00:00:00 Only Unassigned, AMANDA 350.1.13.10 ity of [place] [facility] 4.2.7.2.686 Joaquin as [phone] [address] 2021-12-07 2021-12-07 Pipe And Test Supervisor 2, Adc Lab [facility] 1.2.840.114 [id number] Univers 15:30:00 15:45:00 Visit Sarthak Elliott SEGURA 350.1.13.10 [facility] 4.2.7.[place] [phone] [facility] 353 [facility] 2021-12-07 2021-12-07 Outpatient R JOHSUACAPE [facility] [id number] Univers 15:30:00 15:30:00 ELLIOTT ity of [facility] 2021-11-29 2021-11-29 Outpatient R JOSHUACAPE [facility] [id number] Univers 16:00:00 16:33:51 ELLIOTT ity [facility] 2021-11-29 2021-11-29 [facility] 1.2.840.114 [id number] Univers 16:00:00 16:33:51 Visit Elliottdonnie SEGURA 350.1.13.10 i ty of [place].2.7.2.[place] [phone] [facility] 204 [facility] 2021-11-29 2021-11-29 Orders Doctor VANITA 1.2.840.114 [id number] Univers 00:00:00 00:00:00 Only Unassigned, AMANDA 350.1.13.10 ity of [place] [facility] 4.2.7.2.686 Joaquin as [phone] [address] 2021-11-29 2021-11-29 Telephone [facility] 1.2.840.114 [id number] Univers 00:00:00 00:00:00 Elliott ANGLEYANETH 350.1.13.10 i ty [facility] 4.2.7.2.[place] [phone] [facility] 204 [facility] 2021-10-22 2021-10-22 Orders Doctor VANITA 1.2.840.114 [id number] Univers 00:00:00 00:00:00 Only Unassigned, AMANDA 350.1.13.10 ity of [place] [facility] 4.2.7.2.686 Joaquin as [phone] [facility] [address] 2021-10-19 2021-10-19 Telephone Team, [facility] VANITA 1.2.840.114 [id number] [facility] 00:00:00 00:00:00 Health AMANDA 350.1.13.10 it y of [facility] 4.2.7.2.686 [place] [phone] [facility] [address] 2021-10-17 2021-10-17 Outpatient SHERRIE, [facility] [id number] [place] 00:00:00 00:00:00 WOND[place] 2021-10-11 2021-10-11 Orders Doctor VANITA 1.2.840.[id number] [place] [address] 00:00:00 00:00:00 Only Unassigned, AMANDA 350.1.13.10 ity of [place] [facility] 4.2.7.2.686 [place] as [phone] [address] 2021-10-04 2021-10-04 Outpatient SHERRIE, [facility] [id number] [place] 00:00:00 00:00:00 WONDIFUL [address] 2021-10-04 2021-10-04 Outpatient SHERRIE, [facility] [id number] [place] 00:00:00 00:00:00 WONDIFUL [address] 2021-09-17 2021-09-17 Outpatient Savage RUIZ [facility] [id number] Univers 14:15:00 14:40:03 TIN nava [facility] 2021-09-17 2021-09-17 [facility] 1.2.840.114 [id number] Univers 14:15:00 14:40:03 Visit [facility] 350.1.13.10 it y of [place] 4.2.7.2.686 Joaquin as GILLIAN?BLEA [phone] La laquita PARKER [address] [place] [address] MEDICAL OFFICE [facility] 2021-09-13 2021-09-13 Emergency X LOW MESTEPHEN ERT [id number] Univers 12:48:00 15:59:00 JOSE nava [facility] 2021-09-13 2021-09-13 [facility] 1.2.907.065 [id number] Univers 12:48:00 15:59:00 Jose SEGURA 350.1.13.10 i ty of [place] 4.2.7.2.686 [facility] [phone] [address] 2021-09-13 2021-09-13 Emergency [facility] ERT [id number] Univers 12:48:00 15:59:00 JOSE ity [facility] 2021-08-31 2021-08-31 Emergency X [facility] ERT [id number] Univers 21:44:00 22:53:00 [facility] 2021-08-31 2021-08-31 Emergency [facility] 1.2.578.176 [id number] Univers 21:44:00 22:53:00 Raad SEGURA 350.1.13.10 ity [facility] 4.2.7.2.686 [facility] [phone] [address] 2021-07-28 2021-07-28 [place] [facility] 1.2.840.114 [id number] Univers 00:00:00 00:00:00 HEALTH 350.1.13.10 it y of SPECIALTY 4.2.7.2.686 [place] [facility] - [phone] [facility] [address] 2021-07-07 2021-07-07 Patient [facility] 1.2.840.114 [id number] Univers 00:00:00 00:00:00 Secure Msg Viktor La SPECIALTY 350.1.13.10 ity of CARE 4.2.7.2.686 [facility] AT [phone] La laquita PEREA [address] [place] [address] 2021-07-03 2021-07-03 Outpatient R VIKTOR SOSA [facility] GIE 1 [id number] Univers 09:56:00 13:08:00 VIKTOR SOSA [facility] 2021-07-03 2021-07-03 Hospital Sheila [facility] 1.2.840.114 [id number] Univers 09:56:00 13:08:00 Bharti Hoang L ICAL 350.1.13.10 ity of SCIENCES 4.2.7.2.686 Joaquin as BLDG [phone] [facility] [address] 2021-07-03 2021-07-03 Surgery Sheila [facility] 1.2.213.127 [id number] Univers 11:15:00 12:30:00 Viktor Bessie ICAL 350.1.13.10 ity of SCIENCES 4.2.7.2.686 Joaquin as BLDG [phone] [facility] [address] 2021-07-02 2021-07-02 Patient Doctor [facility] 1.2.605.848 [id number] Univers 00:00:00 00:00:00 Secure Msg Unassigned, ICAL 350.1.13.10 ity of [place] SCIENCES 4.2.7.2.686 Joaquin as BLDG [phone] [facility] [address] 2021-07-01 2021-07-01 Nurse VANITA [place] 1.2.840.114 [id number] Univers 00:00:00 00:00:00 Triage Chessica T MAANDA 350.1.13.10 ity of HOSPITAL 4.2.7.2.686 Joa[place] as [phone] [facility] [address] 2021-06-30 2021-06-30 Laboratory Only, Adc Test [facility] 1.2.840. 114 [id number] Univers 09:45:00 10:00:00 Only Viktor Sosa 350.1.13.10 ity of [place] 4.2.7.2.686 [place] [phone] [facility] [address] 2021-06-30 2021-06-30 Outpatient R VIKTOR SOSA [facility] 1 [id number] Univers 09:45:00 09:45:00 VIKTOR SOSA itdeena [facility] 2021-06-30 2021-06-30 Orders Doctor WALDRON 1.2.840.114 [id number] Univers 00:00:00 00:00:00 Only Unassigned, AMANDA 350.1.13.10 ity of [place] [facility] 4.2.7.2.686 Jo[place] as [phone] [facility] [address] 2021-06-30 2021-06-30 Patient Doctor VANITA 1.2.840.114 [id number] Univers 00:00:00 00:00:00 Secure Msg Unassigned, AMANDA 350.1.13.10 ity of [place] [facility] 4.2.7.2.686 Jo[place] as [phone] [facility] [address] 2021-06-28 2021-06-28 Patient [facility] 1.2.840.114 [id number] Univers 00:00:00 00:00:00 Secure Msg Fab SPECIALTY 350.1.13.10 ity of CARE 4.2.7.2.686 [place] CENTER AT [phone] La laquita PEREA 072 [facility] 2021-06-27 2021-06-27 Patient Doctor VANITA 1.2.840.114 [id number] Univers 00:00:00 00:00:00 Secure Msg Unassigned, AMANDA 350.1.13.10 ity of [place] [facility] 4.2.7.2.686 Joaquin as [phone] [facility] [address] 2021-06-22 2021-06-22 Patient Doctor BRITNI 1.2.840.114 [id number] Univers 00:00:00 00:00:00 Secure Msg Unassigned, AMANDA 350.1.13.10 ity of [place] [facility] 4.2.7.2.686 Jo[place] as [phone] [facility] [address] 2021-06-20 2021-06-20 Telephone [facility] 1.2.840.114 [id number] Univers 00:00:00 00:00:00 [facility] 350.1.13.10 it y of [place] 4.2.7.2.686 Joaquin as GILLIAN?BLEA [phone] La laquita PARKER [address] MEDICAL OFFICE BUILDING 2021-06-18 2021-06-18 Patient Doctor VANITA 1.2.840.114 [id number] Univers 00:00:00 00:00:00 Secure Msg Unassigned, AMANDA 350.1.13.10 ity of [place] [facility] 4.2.7.2.686 Joaquin as [phone] [facility] [address] 2021-06-08 2021-06-08 Pipe And Test Supervisor Lab, Ang - Db [facility] 1.2.840.1 14 [id number] Univers 16:45:00 16:53:05 Visit Tin Ruiz [facility] 350.1.13 .10 ity of [place] 4.2.7.2.686 Joaquin as GILLIAN?BLEA [phone] La zacharyflash [facility] 353 [facility] OFFICE [facility] 2021-06-08 2021-06-08 Outpatient R [facility] [id number] Univers 16:15:00 16:48:24 TIN [facility] 2021-06-08 2021-06-08 Office [facility] 1.2.840.114 [id number] Univers 16:15:00 16:30:00 Visit [facility] 350.1.13.10 it y of [place] 4.2.7.2.686 Joaquin as GILLIAN?BLEA [phone] [facility] 044 [facility] OFFICE [facility] 2021-06-08 2021-06-08 Outpatient R [facility] [id number] Univers 16:15:00 16:15:00 TIN [facility] 2021-06-05 2021-06-05 Orders Doctor VANITA 1.2.840.114 [id number] Univers 00:00:00 00:00:00 Only Unassigned, AMANDA 350.1.13.10 ity of [place] [facility] 4.2.7.2.686 Joaquin as [phone] [facility] [address] 2021-04-24 2021-04-24 Outpatient R [facility] [id number] Univers 15:00:00 15:00:00 TIN [facility] 2021-04-23 2021-04-23 Emergency X SINGER [facility] ERT [id number] Univers 07:20:00 10:42:00 ANGEL nava [facility] 2021-04-23 2021-04-23 Emergency Singer [facility] 1.2.116.805 [id number] Univers 07:20:00 10:42:00 Angel SEGURA 350.1.13.10 i ty [facility] 4.2.7.2.686 [facility] [phone] [facility] [address] 2021-04-20 2021-04-20 Outpatient R [facility] [id number] Univers 08:15:00 08:15:00 ity [facility] 2021-04-18 2021-04-18 Emergency X [facility] ERT [id number] Univers 18:51:00 19:17:00 ity [facility] 2021-04-12 2021-04-12 Outpatient R MICK [facility] [id number] Univers 10:00:00 10:00:00 ADRIANO [facility] 2021-03-05 2021-03-05 RefBoston Briseno [facility] 1.2.840.114 [id number] Univers 00:00:00 00:00:00 HEALTH 350.1.13.10 it y of SPECIALTY 4.2.7.2.686 [place] CARE - [phone] [facility] [address] 2020-12-30 2020-12-30 Laboratory Only, Adc Test [facility] 1.2.840. 114 [id number] Univers 10:15:00 10:30:00 Only Viktor Sosa 350.1.13.10 ity [facility] 4.2.7.2.686 [facility] [phone] [facility] [address] 2020-12-30 2020-12-30 Outpatient R VIKTOR SOSA [facility] 1 [id number] Univers 10:15:00 10:15:00 VIKTOR SOSA [facility] 2020-12-24 2020-12-24 [place] [facility] 1.2.840.114 [id number] Univers 00:00:00 00:00:00 HEALTH 350.1.13.10 it y of SPECIALTY 4.2.7.2.686 [place] CARE - [phone] [facility] [address] 2020-12-07 2020-12-07 Office Fab LeonIT 1.2.840. 114 [id number] Univers 10:07:43 10:37:43 Visit Adriano Barton HEALTH 350.1.13. 10 ity of CLINICS 4.2.7.2.[place] [phone] [facility] [address] 2020-12-07 2020-12-07 Outpatient R MICK [facility] [id number] Univers 10:00:00 10:00:00 ADRIANO nava [facility] 2020-12-07 2020-12-07 Outpatient R MICK [facility] [id number] Univers 10:00:00 10:00:00 ADRIANO nava [facility] 2020-12-07 2020-12-07 Orders Doctor VANITA 1.2.840.114 [id number] Univers 00:00:00 00:00:00 Only Unassigned, AMANDA 350.1.13.10 ity of [place] [facility] 4.2.7.2.686 Joaquin as [phone] [facility] [address] 2020-11-20 2020-11-20 Telephone [place] 1.2.840.114 [id number] Univers 00:00:00 00:00:00 [facility] 350.1.13.10 it y of [place]2.7.2.[place] PRIMARY [phone] [facility] CARE - 362 [facility] 2020-11-09 2020-11-09 Office Care, [facility] NO 1.2.840 .114 [id number] Univers 10:09:22 11:23:34 Visit [facility] [place] [facility] 350.1.13.10 ity of HEALTH 4.2.7.2.[place] UN[place] [phone] [facility] [address] 2020-11-09 2020-11-09 Outpatient R [facility] [id number] Univers 10:00:00 10:00:00 ity [facility] 2020-11-09 2020-11-09 Telephone [place] [facility] 1.2.840.114 [id number] Univers 00:00:00 00:00:00 [place] 350.1.13.10 i ty of [place] 4.2.7.2.686 [place] Profess[place] [phone] La dical nal 044 [facility] 2020-11-08 2020-11-08 Emergency [facility] 1.2.105.887 [id number] Univers 13:28:00 15:23:00 Jose Segura 350.1.13.10 i ty of [place] 4.2.7.2.686 [place] [phone] [facility] [address] 2020-10-05 2020-10-05 Office Care, Igor SARABIA 1.2.840 .114 [id number] Univers 13:32:14 14:02:14 Visit [place] [facility] 350.1.13.10 ity of HEALTH 4.2.7.2.686 [facility] UNIT [phone] [facility] [address] 2020-10-05 2020-10-05 Outpatient R GORGE [facility] [id number] Univers 13:30:00 13:30:00 ity of [facility] 2020-10-05 2020-10-05 Orders Doctor VANITA 1.2.840.114 [id number] Univers 00:00:00 00:00:00 Only Unassigned, AMANDA 350.1.13.10 ity of [place] [facility] 4.2.7.2.686 Joaquin as [phone] [facility] [address] 2020-08-31 2020-08-31 Out[facility] [id number] Univers 13:00:00 13:00:00 WILMAN cota [facility] 2020-08-31 2020-08-31 Outpatient Savage [facility] [id number] Univers 13:00:00 13:00:00 WILMAN nava o f [facility] 2020-08-30 2020-08-30 Refill Gorge [facility] 1.2.840.114 [id number] Univers 00:00:00 00:00:00 Health 350.1.13.10 it y of Specialty 4.2.7.2.686 [place] Care - [phone] [facility] [address] 2020-08-10 2020-08-10 Telephone GorgeAnneldawit SARABIA 1.2.840.114 [id number] Univers 00:00:00 00:00:00 [facility] 350.1.13.10 it y of HE[place] 4.2.7.2.[place] [phone] [facility] [address] 2020-07-18 2020-07-18 Telephone [place] 1.2.840.114 [id number] Univers 00:00:00 00:00:00 [facility] 350.1.13.10 it y of HE[place] 4[place]2.7.2.[place] [id number] [facility] [address] 2020-07-05 2020-07-05 Outpatient R [facility] [id number] Univers 00:00:00 00:00:00 ity [facility] 2020-06-28 2020-06-28 Emergency [facility] 1.2.840.114 [id number] Univers 00:04:00 01:28:00 Gely Segura 350.1.13.10 ity [facility] 4.2.7.[address] [place] [address] [phone] [facility] [address] 2020-06-27 2020-06-27 Nurse Shabnam WALDRON 1.2.840.114 [id number] Univers 00:00:00 00:00:00 Triage dRaine 350.1.13.10 ity [facility] 4.2.7.2.686 Joaquin as [phone] [facility] [address] 2020-06-22 2020-06-22 Outpatient R FRANKIE JENNINGS [facility] [id number] Univers 09:33:34 23:59:00 [facility] 2020-06-22 2020-06-22 [facility] 1.2.555.503 [id number] Univers 09:33:34 23:59:00 Encounter Frankie Segura 350.1.13.10 ity [facility] 4.2.7.[address] [place] [address] [phone] [facility] 8[address] 2020-06-22 2020-06-22 Office Care, Igor SARABIA 1.2.840 .114 [id number] Univers 13:39:03 14:51:44 Visit [place] [facility] 350.1.13.10 ity of [facility] 4.2.7.2.686 [place] UN[place] [phone] [facility] [address] 2020-06-22 2020-06-22 Outpatient [facility]ON [facility] [id number] Univers 13:30:00 13:30:00 ity of [facility] 2020-06-22 2020-06-22 Orders Doctor VANITA 1.2.840.114 [id number] Univers 00:00:00 00:00:00 Only Unassigned, AMANDA 350.1.13.10 ity [facility] 4.2.7.2.686 Joaquin as [phone] [facility] [address] 2020-05-13 2020-05-13 Outpatient Savage PAYNE [facility] [id number] Univers 15:00:00 15:00:00 KIARA [facility] 2020-04-11 2020-04-11 Outpatient R FRANKIE JENNINGS [facility] [id number] Univers 15:15:00 15:15:00 FRANKIE JENNINGS deena [facility] 2020-04-11 2020-04-11 Pipe And Test Supervisor 2, Adc Lab [facility] 1.2.840.114 [id number] Univers 13:25:24 13:40:24 Visit Frankie Jennings 350.1.13 .10 ity of [place] 4.2.7.2.686 [place] Profess[place] [phone] La dical nal 353 [facility] 2020-04-10 2020-04-10 Office Rafael [facility] 1.2.840.114 [id number] Univers 11:03:30 12:07:41 Visit Frankie Segura 350.1.13.10 ity of [place] 4.2.7.2.686 [place] Profess[place] [phone] La dical nal 092 [facility] 2020-04-10 2020-04-10 Outpatient FRANKIE CAMPOS [facility] [id number] Univers 11:00:00 11:00:00 FRANKIE JENNINGS deena [facility] 2020-04-05 2020-04-05 Outpatient Savage MURRY [facility] [id number] Univers 13:00:00 13:00:00 JOSE ity o f [facility] 2020-03-15 2020-03-15 Outpatient FRANKIE CAMPOS [facility] [id number] Univers 15:40:54 23:59:00 FRANKIE JENNINGS [facility] 2020-03-15 2020-03-15 Hospital [facility] 1.2.846.392 [id number] Univers 15:40:54 23:59:00 Encounter Frankie Segura 350.1.13.10 ity of [place] 4.2.7.2.686 [place] [phone] [facility] 8[address] 2020-03-15 2020-03-15 Orders Doctor VANITA 1.2.840.114 [id number] Univers 00:00:00 00:00:00 Only Unassigned, AMANDA 350.1.13.10 ity of [place] [facility] 4.2.7.2.686 Joaquin as [phone] [facility] 009 [address] 2020-02-22 2020-02-22 Office [facility] 1.2.840.114 [id number] Univers 09:58:34 11:56:45 Visit Frankie Segura 350.1.13.10 ity [facility] 4.2.7.2.686 [place] [facility] [phone] La dical [facility] 092 [address] [facility] 2020-02-22 2020-02-22 Outpatient FRANKIE CAMPOS [facility] [id number] Univers 10:00:00 10:00:00 FRANKIE JENNINGS [facility] 2020-02-07 2020-02-07 Telephone [place] 1.2.840.114 [id number] Univers 00:00:00 00:00:00 [facility] 350.1.13.10 it y of HEALTH 4.2.7.2.686 [place] UN[place] [phone] [facility] [address] 2020-01-26 2020-01-26 Orders Doctor VANITA 1.2.840.114 [id number] Univers 00:00:00 00:00:00 Only Unassigned, AMANDA 350.1.13.10 ity of [place] [facility] 4.2.7.2.686 Joaquin [phone] [facility] 009 [address] 2020-01-20 2020-01-20 Telemedici Care, Igor SARABIA 1.2. 840.114 [id number] Univers 10:30:07 12:57:55 ne Visit [place] [facility] 350.1.13.10 ity of HEALTH 4.2.7.2.[place] [phone] [facility] [address] 2020-01-20 2020-01-20 Outpatient R [facility] [id number] Univers 10:30:00 10:30:00 ity of [facility] 2019-12-27 2019-12-28 Outpatient X [facility] [id number] Univers 10:56:00 17:30:00 MOSTAFA ity of [facility] 2019-12-27 2019-12-28 Emergency Edson Clay 1.2.840. 114 [id number] Univers 10:56:00 17:30:00 Gerda Desir Radha [facility] S [facility] 350.1.13.10 ity of [facility] 4.2.7.2.68 6 [place] [phone] [facility] 090 [address] 2019-12-03 2019-12-05 Emergency Jose Messer S [facility] 1.2.840.1 14 [id number] Univers 15:31:00 14:05:00 Margaux Sawyer 350.1.13.10 ity of [place] 4.2.7.2.686 [facility] [place] [phone] [facility] 081 [address] 2019-05-14 2019-05-14 Telephone [place] PenningtonEVAN 1.2.840.114 [id number] Univers 00:00:00 00:00:00 [facility] 350.1.13.10 it y of HEALTH 4.2.7.2.[place] [id number] [facility] [address] 2019-05-14 2019-05-14 Telephone [place] NO 1.2.840.114 [id number] Univers 00:00:00 00:00:00 [facility] 350.1.13.10 it y of HEALTH 4.2.7.2.686 [place] [phone] [address] 2019-05-14 2019-05-14 Telephone [place] 1.2.840.114 [id number] Univers 00:00:00 00:00:00 [facility] 350.1.13.10 it y of HEALTH 4.2.7.2.686 [place] [phone] [facility] [address] 2018-10-15 2018-10-15 Office Care, Ang Primary BRAZORIA 1.2.840 .114 [id number] Univers 11:04:33 12:07:54 Visit [place] [facility] 350.1.13.10 ity of HEALTH 4.2.7.2.686 [place] UN[place] [phone] [address] 2018-10-15 2018-10-15 Orders Doctor VANITA 1.2.840.114 [id number] Univers 00:00:00 00:00:00 Only Unassigned, AMANDA 350.1.13.10 ity of [place] [facility] 4.2.7.2.686 Joaquin as [phone] [facility] [address]9 [address] 2018-10-03 2018-10-03 Emergency [facility] [id number] Univers 15:55:38 16:54:00 Paulino Segura 350.1.13.10 i ty [facility] [place].2.[place] [phone] [facility] 0[address] 2018-09-30 2018-09-30 Telephone [place] [facility] 1.2.840.114 [id number] Univers 00:00:00 00:00:00 E Health 350.1.13.10 it y [place]7.2.686 [place] - [phone] [facility] [address] 2018-09-24 2018-09-24 Office Care, Ang Primary BRAZORIA 1.2.840 .114 [id number] Univers 10:52:56 11:22:56 Visit [place] [facility] 350.1.13.10 [place] [phone] [facility] [address] 2018-09-24 2018-09-24 Orders Doctor VANITA 1.2.840.114 [id number] Univers 00:00:00 00:00:00 Only Unassigned, AMANDA 350.1.13.10 ity of [place] [facility] 4.2.7.2.686 [place] as [phone] [facility] 009 [place] Results Test Description Test Time Test Comments Results Result Comments Source POCT GLUCOSE (AUTOMATED) 2022-04-13 16:36:41 Test Item Value Reference Range Interpretation Comme nts POCT GLU (test code = 6709557903) 85 mg/dL 70-110 Lab Interpretation (test code = 35174-4) [facility]47 Test Item Value Reference Range Interpretation Comments MAGNESIUM (test code = 8034951892) 1.6 mg/dL 1.7-2.4 L Lab Interpretation (test code = Abnormal 53465-7) [facility] (NA, K, CL, CO2, GLUCOSE, BUN, CREATININE, CA)2022-04-13 12:33:38 Test Item Value Reference Range Interpretation Comments NA (test code = 135 mmol/L 135-145 [id number]) K (test code = 3.9 mmol/L 3.5-5.0 7793684617) CL (test code = 103 mmol/L 98-108 0108428141) CO2 TOTAL (test code = 25 mmol/L 23-31 3286400985) AGAP (test code = 7 2-16 1295496460) BUN (test code = 12 mg/dL 7-23 [id number]) GLUCOSE (test code = 79 mg/dL 70-110 7425003289) CREATININE (test code = 1.26 mg/dL 0.60-1.25 H 0755686658) CALCIUM (test code = 8.2 mg/dL 8.6-10.6 L 4487961423) eGFR (test code = 58.2 mL/min/1.73m2 1672296383) JESUS (test code = JESUS) Association of Glomerular Filtration Rate (GFR) and Staging of Kidney Disease* + --+ --+ ------+| GFR (mL/min/1.73 m2) ?| With Kidney Damage ?| ?Without Kidney Damage+ --------+ --------+ +| ?>90 ?| ?Stage one ?| ? Normal ?+ ---+ ---+ -------+| ?60-89 ?| ?Stage two ?| ? Decreased GFR ? + --+ --+ ------+| ?30-59 ?| ?Stage three ?| ? Stage three ? + --+ --+ ------+| ?15-29 ?| ?Stage four ? | ? Stage four ?+ ---+ ---+ -------+| ?<15 (or dialysis) ? ?| ?Stage five ? | ? Stage five ?+ ---+ ---+ -------+ *Each stage assumes the associated GFR level has been in effect for at least three months. ?Stages 1 to 5, with or without kidney disease, indicate chronic kidney disease. Notes: Determination of stages one and two (with eGFR >59mL/min/1.73 m2) requires estimation of kidney damage for at least three months as defined by structural or functional abnormalities of the kidney, manifested by either:Pathological abnormalities or Markers of kidney damage (including abnormalities in the composition of the blood or urine or abnormalities in imaging tests). Lab Interpretation Abnormal (test code = 36496-9) [facility] WITH [id number] 12:21:40 Test Item Value Reference Range Interpretation Comments WBC (test code = 6.06 See_Comment [Automated 9710-2) message] The sy stem which generated this result transmitted reference range : 4.20 - 10.70 10*3/?L. The reference range was not used to interpret this result as normal/abnormal . RBC (test code = 4.32 See_Comment [Automated 771-8) message] The sy stem which generated this result transmitted reference range : 4.26 - 5.52 10*6/?L. The reference range was not used to interpret this result as normal/abnormal . HGB (test code = 12.8 g/dL 12.2-16.4 718-7) HCT (test code = 38.8 % 38.4-49.3 4544-3) MCV (test code = 89.8 fL 81.7-95.6 787-2) MCH (test code = 29.6 pg 26.1-32.7 785-6) MCHC (test code = 33.0 g/dL 31.2-35.0 786-4) RDW-SD (test code = 35.9 fL 38.5-51.6 L 36048-5) RDW-CV (test code = 10.9 % 12.1-15.4 L 788-0) PLT (test code = 193 See_Comment [Automated 777-3) message] The sy stem which generated this result transmitted reference range : 150 - 328 10*3/ ?L. The reference r demond was not used to interpret this result as normal/abnormal . MPV (test code = 10.8 fL 9.8-13.0 37206-5) NRBC/100 WBC (test 0.0 See_Comment [Automat ed code = 5847798924) message] The system which generated this result transmitted reference range : 0.0 - 10.0 /100 WBCs. The refer ence range was not u sed to interpret th is result as normal/abnormal . NRBC x10^3 (test code See_Comment [Auto mated = 8349723842) message] The s ystem which generated this result transmitted reference range : 10*3/?L. The reference range was not used to interpret this result as normal/abnormal . GRAN MAT (NEUT) % 63.8 % (test code = 770-8) IMM GRAN % (test code 0.20 % = 8034788951) LYMPH % (test code = 24.1 % 736-9) MONO % (test code = 9.9 % 5905-5) EOS % (test code = 1.7 % 713-8) BASO % (test code = 0.3 % 706-2) GRAN MAT x10^3(ANC) 3.87 10*3/uL 1.99-6.95 (test code = 5409131205) IMM GRAN x10^3 (test 0.00-0.06 code = 1035277450) LYMPH x10^3 (test code 1.46 10*3/uL 1.09-3.23 = 731-0) MONO x10^3 (test code 0.60 10*3/uL 0.36-1.02 = 742-7) EOS x10^3 (test code = 0.10 10*3/uL 0.06-0.53 711-2) BASO x10^3 (test code 0.01-0.09 = 704-7) Lab Interpretation Abnormal (test code = 00278-7) [facility] Metabolic Panel (NA, K, CL, CO2, GLUCOSE, BUN, CREATININE, CA)2022-04-12 12:42:29 Test Item Value Reference Range Interpretation Comments NA (test code = 136 mmol/L 135-145 7124526114) K (test code = 3.9 mmol/L 3.5-5.0 9127131597) CL (test code = 105 mmol/L 98-108 4290911214) CO2 TOTAL (test code = 27 mmol/L 23-31 5917485376) AGAP (test code = 4 2-16 6153467661) BUN (test code = 14 mg/dL 7-23 0831982425) GLUCOSE (test code = 94 mg/dL 70-110 7917878214) CREATININE (test code = 1.46 mg/dL 0.60-1.25 H 3296394888) CALCIUM (test code = 8.5 mg/dL 8.6-10.6 L 4087465627) eGFR (test code = 49.1 mL/min/1.73m2 0564988170) JESUS (test code = JESUS) Association of Glomerular Filtration Rate (GFR) and Staging of Kidney Disease* + --+ --+ ------+| GFR (mL/min/1.73 m2) ?| With Kidney Damage ?| ?Without Kidney Damage+ --------+ --------+ +| ?>90 ?| ?Stage one ?| ? Normal ?+ ---+ ---+ -------+| ?60-89 ?| ?Stage two ?| ? Decreased GFR ? + --+ --+ ------+| ?30-59 ?| ?Stage three ?| ? Stage three ? + --+ --+ ------+| ?15-29 ?| ?Stage four ? | ? Stage four ?+ ---+ ---+ -------+| ?<15 (or dialysis) ? ?| ?Stage five ? | ? Stage five ?+ ---+ ---+ -------+ *Each stage assumes the associated GFR level has been in effect for at least three months. ?Stages 1 to 5, with or without kidney disease, indicate chronic kidney disease. Notes: Determination of stages one and two (with eGFR >59mL/min/1.73 m2) requires estimation of kidney damage for at least three months as defined by structural or functional abnormalities of the kidney, manifested by either:Pathological abnormalities or Markers of kidney damage (including abnormalities in the composition of the blood or urine or abnormalities in imaging tests). Lab Interpretation Abnormal (test code = 83674-3) [facility] with [id number] 10:40:22 Test Item Value Reference Range Interpretation Comments WBC (test code = 6.37 See_Comment [Automated 6690-2) message] The sy stem which generated this result transmitted reference range : 4.20 - 10.70 10*3/?L. The reference range was not used to interpret this result as normal/abnormal . RBC (test code = 4.60 See_Comment [Automated 789-8) message] The sy stem which generated this result transmitted reference range : 4.26 - 5.52 10*6/?L. The reference range was not used to interpret this result as normal/abnormal . HGB (test code = 13.6 g/dL 12.2-16.4 718-7) HCT (test code = 42.1 % 38.4-49.3 4544-3) MCV (test code = 91.5 fL 81.7-95.6 787-2) MCH (test code = 29.6 pg 26.1-32.7 785-6) MCHC (test code = 32.3 g/dL 31.2-35.0 786-4) RDW-SD (test code = 38.7 fL 38.5-51.6 88450-2) RDW-CV (test code = 11.5 % 12.1-15.4 L 788-0) PLT (test code = 195 See_Comment [Automated 777-3) message] The sy stem which generated this result transmitted reference range : 150 - 328 10*3/ ?L. The reference r demond was not used to interpret this result as normal/abnormal . MPV (test code = 10.6 fL 9.8-13.0 30108-2) NRBC/100 WBC (test 0.0 See_Comment [Automat ed code = 1775250047) message] The system which generated this result transmitted reference range : 0.0 - 10.0 /100 WBCs. The refer ence range was not u sed to interpret th is result as normal/abnormal . NRBC x10^3 (test code See_Comment [Auto mated = 3732484438) message] The s ystem which generated this result transmitted reference range : 10*3/?L. The reference range was not used to interpret this result as normal/abnormal . GRAN MAT (NEUT) % 68.1 % (test code = 770-8) IMM GRAN % (test code 0.20 % = 5678626647) LYMPH % (test code = 20.4 % 736-9) MONO % (test code = 9.7 % 5905-5) EOS % (test code = 1.3 % 713-8) BASO % (test code = 0.3 % 706-2) GRAN MAT x10^3(ANC) 4.34 10*3/uL 1.99-6.95 (test code = 3876099760) IMM GRAN x10^3 (test 0.00-0.06 code = 1267724301) LYMPH x10^3 (test code 1.30 10*3/uL 1.09-3.23 = 731-0) MONO x10^3 (test code 0.62 10*3/uL 0.36-1.02 = 742-7) EOS x10^3 (test code = 0.08 10*3/uL 0.06-0.53 711-2) BASO x10^3 (test code 0.01-0.09 = 704-7) Lab Interpretation Abnormal (test code = 42777-2) [facility] Test Item Value Reference Range Interpretation Comments LIPASE (test code = 1144932840) 138 U/L 0-220 Lab Interpretation (test code = Normal 62468-0) [facility]134[facility]2022-[facility]-11 23:34:22 Test Item Value Reference Range Interpretation Comments NA (test code = 138 mmol/L 135-145 2615362691) K (test code = 4.7 mmol/L 3.5-5.0 1438206721) CL (test code = 101 mmol/L 98-108 4886568905) CO2 TOTAL (test code = 29 mmol/L 23-31 0523769675) AGAP (test code = 8 2-16 6391871077) BUN (test code = 13 mg/dL 7-23 8945294345) GLUCOSE (test code = 93 mg/dL 70-110 2899371696) CREATININE (test code = 1.48 mg/dL 0.60-1.25 H 5876179728) TOTAL BILI (test code = 0.7 mg/dL 0.1-1.3 5184067810) CALCIUM (test code = 9.7 mg/dL 8.6-10.6 4789907444) T PROTEIN (test code = 7.5 g/dL 6.3-8.2 6756257267) ALBUMIN (test code = 4.3 g/dL 3.5-5.0 8428037606) ALK PHOS (test code = 78 U/L 34-122 1249454723) ALTv (test code = 17 U/L 5-50 1742-6) AST(SGOT) (test code = 21 U/L 13-40 0297853832) eGFR (test code = 48.3 mL/min/1.73m2 1823309739) JESUS (test code = JESUS) Association of Glomerular Filtration Rate (GFR) and Staging of Kidney Disease* + --+ --+ ------+| GFR (mL/min/1.73 m2) ?| With Kidney Damage ?| ?Without Kidney Damage+ --------+ --------+ +| ?>90 ?| ?Stage one ?| ? Normal ?+ ---+ ---+ -------+| ?60-89 ?| ?Stage two ?| ? Decreased GFR ? + --+ --+ ------+| ?30-59 ?| ?Stage three ?| ? Stage three ? + --+ --+ ------+| ?15-29 ?| ?Stage four ? | ? Stage four ?+ ---+ ---+ -------+| ?<15 (or dialysis) ? ?| ?Stage five ? | ? Stage five ?+ ---+ ---+ -------+ *Each stage assumes the associated GFR level has been in effect for at least three months. ?Stages 1 to 5, with or without kidney disease, indicate chronic kidney disease. Notes: Determination of stages one and two (with eGFR >59mL/min/1.73 m2) requires estimation of kidney damage for at least three months as defined by structural or functional abnormalities of the kidney, manifested by either:Pathological abnormalities or Markers of kidney damage (including abnormalities in the composition of the blood or urine or abnormalities in imaging tests). Lab Interpretation Abnormal (test code = 45977-5) [facility] WITH [id number] 22:19:08 Test Item Value Reference Range Interpretation Comments WBC (test code = 5.84 See_Comment [Automated 7790-2) message] The sy stem which generated this result transmitted reference range : 4.20 - 10.70 10*3/?L. The reference range was not used to interpret this result as normal/abnormal . RBC (test code = 5.67 See_Comment H [Automated 239-8) message] The sy stem which generated this result transmitted reference range : 4.26 - 5.52 10*6/?L. The reference range was not used to interpret this result as normal/abnormal . HGB (test code = 16.6 g/dL 12.2-16.4 H 718-7) HCT (test code = 52.2 % 38.4-49.3 H 4544-3) MCV (test code = 92.1 fL 81.7-95.6 787-2) MCH (test code = 29.3 pg 26.1-32.7 785-6) MCHC (test code = 31.8 g/dL 31.2-35.0 786-4) RDW-SD (test code = 39.7 fL 38.5-51.6 26643-0) RDW-CV (test code = 11.7 % 12.1-15.4 L 788-0) PLT (test code = 216 See_Comment [Automated 777-3) message] The sy stem which generated this result transmitted reference range : 150 - 328 10*3/ ?L. The reference r demond was not used to interpret this result as normal/abnormal . MPV (test code = 11.0 fL 9.8-13.0 47249-5) NRBC/100 WBC (test 0.0 See_Comment [Automat ed code = 7534996795) message] The system which generated this result transmitted reference range : 0.0 - 10.0 /100 WBCs. The refer ence range was not u sed to interpret th is result as normal/abnormal . NRBC x10^3 (test code See_Comment [Auto mated = 2150991469) message] The s ystem which generated this result transmitted reference range : 10*3/?L. The reference range was not used to interpret this result as normal/abnormal . GRAN MAT (NEUT) % 57.3 % (test code = 770-8) IMM GRAN % (test code 0.30 % = 9697360159) LYMPH % (test code = 30.5 % 736-9) MONO % (test code = 9.9 % 5905-5) EOS % (test code = 1.5 % 713-8) BASO % (test code = 0.5 % 706-2) GRAN MAT x10^3(ANC) 3.34 10*3/uL 1.99-6.95 (test code = 0470809778) IMM GRAN x10^3 (test 0.00-0.06 code = 6828392252) LYMPH x10^3 (test code 1.78 10*3/uL 1.09-3.23 = 731-0) MONO x10^3 (test code 0.58 10*3/uL 0.36-1.02 = 742-7) EOS x10^3 (test code = 0.09 10*3/uL 0.06-0.53 711-2) BASO x10^3 (test code 0.03 10*3/uL 0.01-0.09 = 704-7) Lab Interpretation Abnormal (test code = 67089-1) [facility] URINALYSIS, [id number] 21:14:00 Test Item Value Reference Range Interpretation Comments POCT U SP GRAV (test code = 1.025 mg/dl 1.005-1.025 3255) POCT PH U (test code = 3254) 5.5 mg/dl 5-8 POCT U LEUK EST (test code = Negative Negative - Negative 3263) POCT U NIT (test code = 3262) Negative Negative - Negative POCT U PROT (test code = Negative - Negative 3259) POCT U GLU (test code = 3256) Negative Negative - Negative POCT U KETONE (test code = Negative - Negative 3258) POCT U UROBILI (test code = 2.0 mg/dl 0.2-1 A 3260) POCT U BILI (test code = small Negative - Negative 3261) POCT U BLD (test code = 3257) negative Negative - Negative POCT U COLOR (test code = yellow 3266) POCT U APPEAR (test code = clear 3267) Lab Interpretation (test code Abnormal = 24406-2) [facility] [id number] 21:14:00 Test Item Value Reference Range Interpretation Comments POCT U SP GRAV (test code = 1.025 mg/dl 1.005-1.025 3255) POCT PH U (test code = 3254) 5.5 mg/dl 5-8 POCT U LEUK EST (test code = Negative Negative - Negative 3263) POCT U NIT (test code = 3262) Negative Negative - Negative POCT U PROT (test code = Negative - Negative 3259) POCT U GLU (test code = 3256) Negative Negative - Negative POCT U KETONE (test code = Negative - Negative 3258) POCT U UROBILI (test code = 2.0 mg/dl 0.2-1 A 3260) POCT U BILI (test code = small Negative - Negative 3261) POCT U BLD (test code = 3257) negative Negative - Negative POCT U COLOR (test code = yellow 3266) POCT U APPEAR (test code = clear 3267) Lab Interpretation (test code Abnormal = 59716-5) [facility] [id number] 06:28:00 Test Item Value Reference Range Interpretation Comments RPR (test code = RPR) Non-Reactive Non-Reactive N Thyroid Stimulating Hormone (TSH)2017-02-12 05:30:00 Test Item Value Reference Range Interpretation Comments TSH (test code = TSH) 0.71 mIU/mL 0.270-4.200 N Lipid [id number] 05:30:00 Test Item Value Reference Range Interpretation Comments Cholesterol (test 214 mg/dL 0-200 H code = CHOL) Triglycerides (test 184 mg/dL 9-200 N code = TRIG) HDL (test code = 56 mg/dL 40-60 N HDL) Chol/HDL (test code 3.8 Ratio 0.0-5.0 N = CHOLPHDL) LDL, Calculated 121 0-130 N (NOTE)RISK O F HEART (test code = LDLC) DISEASEPu blished by [place] Heart AssociationAnal yte Optimal Boderli ne Increased RiskC HOL <200 200-239 >240TRI G <150 150-199 >200HDL Male: >60 <40HDL Fema le: >60 <50LDL < 100 130-159 >160LDL NEAR OPTIMAL IS 100- 129 VLDL (test code = 37 mg/dL 5-40 N VLDL) LDL/HDL (test code = 2 LDLPHDL)"
[2022-12-20 18:52] LABS: Absolute Lymphocytes (CBC) 1.5 K/uL (0.7-4.9); Hematocrit 43.3 % (39.6-49.0); Lymphocytes % 23.9 % (15.3-44.8); MCV 92.7 fL (80-100); MPV 8.8 fL (7.6-11.3); Platelets 185 thou/uL (152-406); RBC Red Blood Cell Count 4.67 M/uL (4.33-5.43)
[2022-12-20 18:58] LABS: Specific Gravity 1.019 (1.005-1.030); Urine Bilirubin NEGATIVE (Negative); Urine Blood Negative (Negative); Urine Clarity Clear (Clear); Urine Color Light-Yellow (Yellow); Urine Glucose NEGATIVE (Negative); Urine Protein NEGATIVE (Negative); Urine Urobilinogen Normal (Normal); Urine pH 6.5 (5.0-7.0)
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
[2022-12-20 20:48] LABS: Bilirubin Total 0.4 mg/dL (0.2-1.0); Potassium 4.3 mEq/L (3.5-5.1); Protein, Total 6.6 g/dL (6.4-8.2); Troponin High Sensitivity 11.5 pg/mL (<58.9)
--- NOTE | 2022-12-20 21:08 | RAD REPORT ---
EXAM DESCRIPTION: CT - Abdomen Pelvis W Contrast - 12/20/2022 8:20 pm CLINICAL HISTORY: Abdominal distention;Abd pain COMPARISON: No comparisons TECHNIQUE: Thin cut axial CT imaging of the abdomen and pelvis was performed following intravenous a dministration of 100 mL Isovue 300. Multiplanar reformats were generated and reviewed. All CT scans are performed using dose optimization technique as appropriate and may include automated exposure control or mA/KV adjustment according to patient size. FINDINGS: No suspicious findings in the lung bases. The liver, spleen, adrenal glands, and pancreas show no suspicious findings. Gallbladder and biliary tree are also without suspicious finding. Symmetric renal function is seen with no hydronephrosis or suspicious renal mass. Areas of scarring a long the right lower renal pole. Right lower pole 7 millimeter nonobstructing calculus Sequelae of small bowel resection, likely with a blind ended jejunal loop in the right upper quadrant . Small bowel to that level is markedly patulous with air-fluid levels there is a patent end-to-side anastomosis in the central abdomen, best appreciated on axial image 45, beyond which the small-bowel is nondistended and patent. The degree of proximal small bowel dilation may therefore relate to posto perative appearance. . No free air, free fluid or inflammatory stranding. No hernia, mass or bulky ly mphadenopathy. The urinary bladder is decompressed, limiting evaluation. Mild prostatomegaly. No suspicious bony findings. IMPRESSION: Markedly dilated proximal small bowel, may in part be related to sequelae of small bowel resection. Ileus should be considered. An end-to-side central abdominal small bowel anastomosis appe ars patent, with nondistended small bowel distal to this, arguing against bowel obstruction. Other incidental findings including a 7 millimeter right lower renal pole nonobstructing calculus
[2022-12-20] MEDS ORDERED: SODIUM CHLORIDE 0.9% 10ML INJ IV PRN (22:17)
[2022-12-20] MEDS: PANTOPRAZOLE 40 MG INJ IVP SCH (22:18)
[2022-12-20 22:58] VITALS: BMI 26.2
[2022-12-20] MEDS: D5 0.45 NS 1,000 ML IV SCH (23:00)
[2022-12-20] MEDS: LORazepam 2 MG/ML VIAL IV ONE (23:10)
[2022-12-20] MEDS: PIPER TAZO 3.375 GM in NA CHLORIDE 0.9% 100 ML IV SCH (23:15)
[2022-12-20] MEDS ORDERED: PANTOPRAZOLE 40 MG INJ ONE (23:45)
[2022-12-20] MEDS ORDERED: PIPERACIL/TAZO 3.375 GM VIAL IV ONE (23:46)
[2022-12-20] MEDS ORDERED: NA CHLORIDE 0.9% 100 ML ONE (23:46)
[2022-12-20] MEDS ORDERED: D5 0.45 NS 1,000 ML IV ONE (23:46)
[2022-12-21] MEDS ORDERED: LORazepam 2 MG/ML VIAL ONE ×3 (00:12→12:05)
[2022-12-21] MEDS ORDERED: LORazepam 2 MG/ML VIAL IV ONE ×2 (00:52→11:56)
[2022-12-21 03:17] LABS: Hematocrit 38.4 % (39.6-49.0); Lymphocytes % 32.2 % (15.3-44.8); MCV 91.8 fL (80-100); MPV 9.4 fL (7.6-11.3); Platelets 189 thou/uL (152-406); RBC Red Blood Cell Count 4.18 M/uL (4.33-5.43)
[2022-12-21 03:44] LABS: Albumin 2.9 g/dL (3.4-5.0); Bilirubin Direct 0.2 mg/dL (0-0.2); Bilirubin Indirect, Calculated 0.4 mg/dL (0.2-0.8); Bilirubin Total 0.6 mg/dL (0.2-1.0); Potassium 3.8 mEq/L (3.5-5.1); Protein, Total 6.1 g/dL (6.4-8.2)
[2022-12-21] MEDS: D5 0.45 NS 1,000 ML IV SCH ×3 (07:00→23:00)
[2022-12-21] MEDS ORDERED: PANTOPRAZOLE 40 MG INJ ONE (08:27)
[2022-12-21] MEDS ORDERED: PIPERACIL/TAZO 3.375 GM VIAL IV ONE (08:27)
[2022-12-21] MEDS ORDERED: NA CHLORIDE 0.9% 100 ML ONE (08:27)
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
[2022-12-21] MEDS: PIPER TAZO 3.375 GM in NA CHLORIDE 0.9% 100 ML IV SCH ×2 (09:00→16:23)
[2022-12-21] MEDS: PANTOPRAZOLE 40 MG INJ IVP SCH (09:00)
[2022-12-21] MEDS: LORazepam 2 MG/ML VIAL IV ONE (09:05)
--- NOTE | 2022-12-21 11:25 | P.PN ---
Date of Service: 12/21/22 Subjective: reports ~2-3 similar recurrent episodes since ~2009 Feels ~same as yesterday small formed BM overnight +hiccups refused NGT yesterday after some difficulty with insertion on both sides ROS: 10 point ROS as noted above, otherwise negative Physical Exam: GEN: Alert, oriented, NAD HEENT: Normal conjunctiva, sclera anicteric CV: Regular rate and rhythm, no edema Pulm: Nonlabored respirations on room air, clear bilaterally, +hiccups ABD: Soft, mild discomfort, nondistended, hypoactive Neuro: Normal speech, normal affect vitals reviewed Problem List: Abdominal pain likely secondary to ileus vs SBO h/o of recurrent ileus/SBO Hypertension Abdominal pain likely secondary to ileus vs SBO h/o of recurrent ileus/SBO CT abdomen (12/20): SBO vs ileus; small bowel anastomosis appears patent, with nondistended small bowel distal to this, arguing against bowel obstruction General surgery consulted - Dr. Alva serial abdominal exams bowel rest, NPO for now Continue PPI refused NGT yesterday after some difficulty with insertion on both sides overnight amenable to a 2nd attempt this morning Continue empiric zosyn (12/20-) afebrile, no leukocytosis continue D5w Hypertension confirm home medications, restart as appropriate Code: Full Dispo: Home Pending further improvement
--- NOTE | 2022-12-21 14:07 | EKG ---
Test Date: 2022-12-20 Test Time: 18:27:18 Joint Terminal Attack Controller: Bessie SAMPSON MEASUREMENT RESULTS: Intervals: Rate: 65 FL: 146 QRSD: 76 QT: 380 QTc: 395 [place]: P: 79 FL: 146 QRS: 5 T: 57 INTERPRETIVE STATEMENTS: Normal sinus rhythm Normal ECG Compared to ECG 02/10/2017 09:11:06 Sinus arrhythmia no longer present Electronically Signed On 12-21-22 14:06:18 PHOTOVOLTAIC PANEL INSTALLER by Carl Muñoz
[2022-12-21] MEDS ORDERED: LORazepam 2 MG/ML VIAL IV PRN (14:11)
[2022-12-21] MEDS: MORPHINE 2 MG/ML SYR IV PRN ×2 (16:22→19:56)
[2022-12-21] MEDS: HYDRALAZINE HCL 20 MG/ML VIAL IV PRN (18:16)
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
[2022-12-21] MEDS ORDERED: KCL 20 MEQ/100 mL IVPB 20 MEQ/100 ML BAG IV ONE (21:00)
[2022-12-21 23:08] VITALS: O2SAT 98
[2022-12-22] MEDS: PIPER TAZO 3.375 GM in NA CHLORIDE 0.9% 100 ML IV SCH ×3 (00:10→17:08)
[2022-12-22] MEDS: D5 0.45 NS 1,000 ML IV SCH ×3 (02:46→15:00)
[2022-12-22 07:27] LABS: Absolute Lymphocytes (CBC) 1.2 K/uL (0.7-4.9); Hematocrit 39.4 % (39.6-49.0); Lymphocytes % 21.8 % (15.3-44.8); MCV 91.6 fL (80-100); MPV 8.8 fL (7.6-11.3); Platelets 190 thou/uL (152-406)
[2022-12-22 07:38] LABS: Magnesium 1.9 mg/dL (1.6-2.4); Potassium 3.7 mEq/L (3.5-5.1)
--- NOTE | 2022-12-22 08:34 | P.PN ---
Date of Service: 12/22/22 Subjective: Feeling better today no BM yet; +flatus able to get NG tube placed yesterday abdominal discomfort improving afebrile ROS: 10 point ROS as noted above, otherwise negative Physical Exam: GEN: Alert, oriented, NAD HEENT: Normal conjunctiva, sclera anicteric; NGT in place CV: Regular rate and rhythm, no edema Pulm: Nonlabored respirations on room air, clear bilaterally, +hiccups ABD: Soft, mild discomfort, nondistended, hypoactive Neuro: Normal speech, normal affect NG tube in place vitals reviewed Problem List: Abdominal pain likely secondary to ileus vs SBO h/o of recurrent ileus/SBO Hypertension Anxiety Abdominal pain likely secondary to ileus vs SBO h/o of recurrent ileus/SBO CT abdomen (12/20): SBO vs ileus; small bowel anastomosis appears patent, with nondistended small bowel distal to this, arguing against bowel obstruction most likely ileus KUB appears improved; pending radiologist read General surgery consulted - Dr. Alva serial abdominal exams bowel rest, NPO for now; NGT to LIWS (placed 12/21) possible diet advancement / NGT clamp trials today, will discuss with Dr. Alva Continue PPI Continue empiric zosyn (12/20-) afebrile, no leukocytosis continue D5w PRN pain medication Hypertension confirm home medications, restart as appropriate PRN hydralazine Anxiety PRN ativan Code: Full Dispo: Home, 1-2 days Pending further improvement
[2022-12-22] MEDS: PANTOPRAZOLE 40 MG INJ IVP SCH (09:28)
--- NOTE | 2022-12-22 10:29 | RAD REPORT ---
EXAM DESCRIPTION: RAD - Abdomen W Erect - 12/22/2022 8:34 am CLINICAL HISTORY: Abdominal pain FINDINGS: A NG tube has been placed with its tip in the first portion of the duodenum Free air is not seen beneath the diaphragm Small bowel caliber has mildly to moderately diminished since the December 20, 2022 CT
[2022-12-22] MEDS: ACETAMINOPHEN 500 MG TAB PO PRN ×2 (12:33→20:02)
[2022-12-22] MEDS: HYDRALAZINE HCL 20 MG/ML VIAL IV PRN ×2 (12:47→17:08)
--- NOTE | 2022-12-22 19:13 | P.PN ---
Subjective Date of Service: 12/22/22 Chief Complaint: Ileus Subjective: Improving Review of Systems Respiratory: Unremarkable Cardiovascular: Unremarkable Gastrointestinal: Distention, Other (passing gas) Genitourinary: Unremarkable Physical Examination - Vital Signs Temperature: 99.0 F Blood Pressure: 160/89 Pulse: 84 Respirations: 16 Pulse Ox (%): 98 - Physical Exam General: Alert, In no apparent distress, Oriented x3, Cooperative HEENT: Normocephalic Neck: Supple Respiratory: Normal air movement Gastrointestinal: Hypoactive, Soft and benign, No rebound, No guarding, Distended (but better) Integumentary: No rashes, No breakdown Neurological: Normal speech Assessment And Plan - Plan clamp ngt clear liquid oob
[2022-12-23] MEDS: PIPER TAZO 3.375 GM in NA CHLORIDE 0.9% 100 ML IV SCH ×3 (00:23→17:00)
[2022-12-23] MEDS: D5 0.45 NS 1,000 ML IV SCH (00:25)
[2022-12-23] MEDS: ACETAMINOPHEN 500 MG TAB PO PRN (03:43)
[2022-12-23] MEDS ORDERED: D5 0.45 NS 1,000 ML IV SCH (06:45)
[2022-12-23] MEDS: PANTOPRAZOLE 40 MG INJ IVP SCH (08:54)
--- NOTE | 2022-12-23 12:00 | P.PN ---
Date of Service: 12/23/22 Subjective: no BM yet; +flatus Patient removed NG tube today states he didn't need it anymore no new / worsening problems afebrile ROS: 10 point ROS as noted above, otherwise negative Physical Exam: GEN: Alert, oriented, NAD HEENT: Normal conjunctiva, sclera anicteric CV: Regular rate and rhythm, no edema Pulm: Nonlabored respirations on room air, clear bilaterally, +hiccups ABD: Soft, mild discomfort, nondistended, hypoactive Neuro: Normal speech, normal affect vitals reviewed Problem List: Abdominal pain likely secondary to ileus vs SBO h/o of recurrent ileus/SBO Hypertension Anxiety Abdominal pain likely secondary to ileus vs SBO h/o of recurrent ileus/SBO CT abdomen (12/20): SBO vs ileus; small bowel anastomosis appears patent, with nondistended small bowel distal to this, arguing against bowel obstruction most likely ileus KUB appears improved; pending radiologist read General surgery consulted - Dr. Alva serial abdominal exams NGT to LIWS (placed 12/21) Patient self-removed NGT today 12/23; states he didn't need it anymore clear liquids; possible diet advancement Continue PPI Continue empiric zosyn (12/20-) afebrile, no leukocytosis continue D5w, decreased 12/23 PRN pain medication Hypertension confirm home medications, restart as appropriate PRN hydralazine Anxiety PRN ativan Code: Full Dispo: Home, ~1 day Pending further improvement
--- NOTE | 2022-12-23 13:20 | PN ---
Date of Progress Note: 12/23/2022 Reason For Service: Small bowel obstruction. Subjective: Patient is receiving a small bowel series today. Family members are at bedside being wa tching him. He is tolerating a liquid diet, passing a lot of gas, as per family member. He pulled h is NG tube over the last few hours. Plan: Continue with small bowel series. If he has some obstruction, we will need to discuss about s urgery again. If no obstruction, then we are going to have to advance diet. HM/MODL Voice ID: [id number] Report ID: [id number]
--- NOTE | 2022-12-23 15:32 | RAD REPORT ---
EXAM DESCRIPTION: RAD - Small Bowel Series - 12/23/2022 3:16 pm CLINICAL HISTORY: ileus/psbo Abdominal pain COMPARISON: Abdomen Pelvis W Contrast dated 12/20/2022; Abdomen W Erect dated 12/22/2022 FINDINGS: [employer] Service Specialist image demonstrates a gaseous distention of bowel loops in a relatively an organized fashion, predominately in the upper abdomen. Stomach size is normal. There is diffuse distention of jejunal small bowel loops noted in the upper a bdomen. Stomach and duodenum appear normal caliber. The more distal small bowel/ileum loops are attila l in caliber. Transit time to the colon is 3.5 hours.. No fluoroscopy was performed. Total images acquired: 10 IMPRESSION: There is significant distention of what appears to be multiple jejunal loops in the cent ral abdomen. The stomach and duodenum appears normal caliber as does the ileal loops. This may indic ate a partial mechanical small-bowel obstruction, which could be caused by conditions such as interna l hernia.
[2022-12-23 16:13] VITALS: BP 185/94; TEMP 98.6
== END 2022-12-23 16:45 | disposition left against medical advice (07) | DRG 390 ==
LOC: ER 17:25 → ERHOLD 22:18 → 2ND 12-21 13:38
PROVIDERS: ADMIT Hospitalist; ATTEND Hospitalist
DX: K56.699 Other intestinal obstruction unspecified as to partial versus complete obstruction (principal); I10 Essential (primary) hypertension; F41.9 Anxiety disorder, unspecified; K21.9 Gastro-esophageal reflux disease without esophagitis; Z53.29 Procedure and treatment not carried out because of patient's decision for other reasons
CPT/HCPCS: 36415; 74019; 74177; 74250; 80048; 80053; 80076; 81003; 83605; 83690; 83735; 84484; 85025; 93005; 96374; 99285; C9113; J0360; J2270; J2543; J3480; J7799; Q9967